=== PATIENT | male | born 1950 | race Caucasian/White ===

== ENCOUNTER 2017-11-29 13:02 | Inpatient (IN) | payer OTHER ==
[2017-11-29] MEDS ORDERED: Sodium Chloride 0.9% 1,000 ML IV ONE (20:53)
[2017-11-29] MEDS ORDERED: Clindamycin 600mg/50mL 600 MG/50 ML BAG IV ONE (21:12)
[2017-11-29 21:30] LABS: % BASOPHILS 0.1 % (0.0-2.0); % EOSINOPHILS 1.7 % (0.0-5.0); % LYMPHOCYTES 24.9 % (20.0-50.0); % MONOCYTES 10.6 % (2.0-10.0); % NEUTROPHILS 62.7 % (40.0-80.0); EOSINOPHILE ABSOLUTE 0.1 Th/cmm (0.1-0.4); HEMATOCRIT 42.6 % (41.0-60); LYMPHOCYTE ABSOLUTE 2.1 Th/cmm (1.5-3.0); MEAN CELL VOLUME 81.2 fl (80-99); MEAN CORPUSCULAR HEMOGLOBIN 26.7 pg (27.0-31.0); MEAN CORPUSCULAR HGB CONC 32.9 pg (28.0-36.0); MEAN PLATELET VOLUME 7.8 fl; MONOCYTE ABSOLUTE 0.9 Th/cmm (0.3-1.0); NEUTROPHILE ABSOLUTE 5.4 Th/cmm (1.8-8.0); PLATELET COUNT 284 Th/cmm (150-400); RED BLOOD COUNT 5.25 Mil/cmm (3.80-5.80); RED CELL DISTRIBUTION WIDTH 16.2 % (11.5-20.0); WHITE BLOOD COUNT 8.5 Th/cmm (4.8-10.8)
[2017-11-29] MEDS ORDERED: Piperacillin Sodium/Tazobact 3.375 gm Vial IV ONE (21:42)
[2017-11-29 21:43] LABS: ALB/GLOB RATIO 1.3 (1.0-1.8); ALBUMIN 3.9 gm/dL (4.2-5.5); ALKALINE PHOSPHATASE 77 U/L (34-104); ANION GAP 10.3 (7.0-16.0); BILIRUBIN,TOTAL 0.5 mg/dL (0.3-1.0); BUN - UREA NITROGEN 17 mg/dL (7-25); CALCIUM SERUM 9.2 mg/dL (8.6-10.3); CARBON DIOXIDE 23.8 mEq/L (21.0-31.0); CHLORIDE 100 mEq/L (98-107); CREATININE - SERUM 0.8 mg/dL (0.7-1.3); GFR AFRICAN-AMERICAN > 60.0 ml/min (>90); GFR NON AFRICAN-AMERICAN > 60.0 ml/min; GLUCOSE 89 mg/dL (70-105); POTASSIUM SERUM 4.1 mEq/L (3.5-5.1); SGOT 12 U/L (13-39); SGPT/ALT 15 U/L (7-52); SODIUM SERUM 130 mEq/L (136-145); TOTAL PROTEIN,SERUM 6.8 gm/dL (6.0-8.3)
[2017-11-29] MEDS ORDERED: Clindamycin 150 mg/mL 4mL Vial ONE (21:58)
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
[2017-11-30 03:26] VITALS: BP 125/76
[2017-11-30] MEDS ORDERED: Magnesium Hydroxide (MOM) 30 mL UDC PO PRN (03:26)
[2017-11-30] MEDS ORDERED: Maalox 30 mL Cup PO PRN (03:26)
[2017-11-30] MEDS ORDERED: Non-Formulary Item 1 EA (Acetaminophen [Pain Reliever] 650 MG) PO PRN (06:49)
[2017-11-30] MEDS: INSULIN HUMAN REGULAR 100 UNITS/ML UNIT SUBQ SCH ×2 (07:23→11:26)
--- NOTE | 2017-11-30 08:49 | Diagnostic Imaging Report ---
CHEST X-RAY: AP view INDICATION: Pneumonia COMPARISON: None FINDINGS: There is retrocardiac density. Chronic interstitial lung changes are noted. No focal consolidation or effusions. Left upper lung zone subsegmental atelectasis versus scarring is noted. There appear to be multiple previous left rib fractures, age-indeterminate. No pneumothorax. Heart size is at the upper limits of normal. IMPRESSION: Multiple age-indeterminate left rib fractures. Please correlate with clinical findings and old exams. These findings may be chronic. If indicated rib series x-rays may also be obtained. No evidence of pneumothorax. Left upper lung zone subsegmental atelectasis versus scarring. No focal consolidation identified. Retrocardiac density suggestive of an at least moderate-sized hiatal hernia. CT would further clarify.
--- NOTE | 2017-11-30 08:57 | History and Physical ---
History of Present Illness - HPI Chief Complaint: psychosis HPI: 67y/o male admitted for change in behavior. Has a previous history of HTN,DM, Right foot ulcer, possible osteomyelitis, PVD, periphereal neuropathy, mild renal insufficiency, partial resection of the right foot. Vital Signs: Last Vital Signs Temp 97.1 F 11/30/17 03:26 Pulse 56 11/30/17 03:26 Resp 18 11/30/17 03:26 BP 125/76 11/30/17 03:26 Pulse Ox 99 11/30/17 03:26 Past Medical History Cardiovascular: Report: HTN Pulmonary: Report: No Pertinent Hx ARTIST COLOR SEPARATION: Report: No Pertinent Hx GI: Report: No Pertinent Hx Psych: Report: Psychosis Musculoskeletal: Report: Other (right foot ulcer) Rheumatologic: Report: No pertinent Hx Infectious Disease: Report: No Pertinent Hx Renal/: Report: No Pertinent Hx Endocrine: Report: Diabetes - Past Surgical History Past Surgical History: Other (partial resection of the right foot) Family Medical History - Family Member Mother History Unknown: Yes Ethnicity: Non- Living Status: Unknown Hx Family Cancer: (Unknown) Hx Family Coronary Artery Disease: (Unknown) Hx Family Congestive Heart Failure: (Unknown) Hx Family Hypertension: (Unknown) Hx Family Stroke: (Unknown) Hx Family Diabetes: (Unknown) Hx Family Seizures: (Unknown) Hx Family Dementia: (Unknown) Hx Family AIDS: (Unknown) Hx Family HIV: No Hx Family COPD: (Unknown) Hx Family Hepatitis: (Unknown) Hx Family Psychiatric Problems: (Unknown) Hx Family Tuberculosis: (Unknown) Social History Smoke: No Alcohol: None Drugs: None Lives: Usp - Medications Home Medications: Home Medication Medication Instructions Recorded Type Acetaminophen [Pain Reliever] 650 mg PO Q4H PRN 11/29/17 History Ascorbic Acid [Vitamin C] 500 mg PO DAILY 11/29/17 History Clonidine HCl [Catapres] 0.1 mg PO Q6H PRN 11/29/17 History Enoxaparin [Lovenox] 30 mg SUBQ DAILY 11/29/17 History Folic Acid [Folate*] 1 mg PO HS 11/29/17 History Hydralazine [Apresoline*] 10 mg PO TID 11/29/17 History Insulin Human Regular [NovoLIN R] 0 units SUBQ ACHS 11/29/17 History Melatonin 3 mg PO HS 11/29/17 History Multivitamin with Minerals 1 tab PO DAILY 11/29/17 History [Multivitamins with Minerals] Propranolol HCl [Inderal*] 10 mg PO BID 11/29/17 History Sertraline [Zoloft] 50 mg PO DAILY 11/29/17 History Thiamine [Vitamin B1] 100 mg PO HS 11/29/17 History Trazodone HCl 50 mg PO HS 11/29/17 History Vits A & D/White Pet/Lanolin [A + 42.5 gm TP DAILY 11/29/17 History D Ointment] - Allergies Allergies/Adverse Reactions: Allergies Allergy/AdvReac Type Severity Reaction Status Date / Time Penicillins Allergy Verified 11/29/17 14:45 Review of Systems - Review of Systems Constitutional: Report: No Significant Eyes: Report: No Significant ENT: Report: No Significant Respiratory: Report: No Significant Cardiovascular: Report: No Significant Gastrointestinal: Report: No Significant Genitourinary: Report: No Significant Musculoskeletal: Report: No Significant Skin: Report: No Significant Neurological: Report: No Significant Physical Exam - Physical Exam HEENT: Report: Ears Nose Throat within normal limits, Pharnyx within normal limits Neck: Report: Within normal limits. Denies: Thyromegaly Cardiovascular Systems: Report: +s1/s2 noted, Regular, Rate and Rhythm Respiratory: Report: Breath Sounds are within normal limits Abdomen: Report: Non-tender to palpation. Denies: Guarding - Assessment Assessment: Current Active Problems Problem Status Onset AGITATION Acute Psychosis Right Foot pain secondary to ulcer HTN PVD DM periphereal neuropathy Mild renal insufficiency partial resection of the Right foot - Plan Plan: admit to [facility] and continue meds per psychiatry Right foot Xray ortho consult
[2017-11-30] MEDS ORDERED: Multivitamin Tab PO SCH (09:00)
[2017-11-30] MEDS: Enoxaparin 30 mg/0.3 mL 0.3mL Syr SUBQ SCH (09:16)
[2017-11-30] MEDS: Multivitamin w/ Minerals Tab PO SCH (09:17)
[2017-11-30] MEDS: Vitamin A/Vitamin D 5 gm Packet TP SCH (09:17)
--- NOTE | 2017-11-30 10:24 | Diagnostic Imaging Report ---
Right foot 3 views Indication: pain Comparison: none Findings: Exam is limited due to positioning. There appears to be previous partial resection involving the distal aspect of the fifth metatarsal. There is also erosions and irregularities along the third DIP joint most pronounced along the third distal phalanx. Moderate degenerative changes are noted greatest in the subtalar joint. No significant focal soft tissue swelling. There may be small soft tissue defects involving the distal aspect of the second and third phalanges. IMPRESSION: There appears to be partial resection involving the distal aspect of the fifth metatarsal. Please correlate with clinical findings Erosive changes along the third DIP joint most pronounced within the third distal phalanx. Findings may be due to previous infectious inflammatory process/possible septic arthritis. Please correct clinically Moderate degenerative changes. Possible small soft tissue defects along the distal aspect of the second and third phalanges. In the setting of trauma, if clinical symptoms persist and there is continued concern for an occult fracture, follow up exams in 5-7 days is suggested.
[2017-11-30] MEDS: INSULIN ASPART SLIDING SCALE 100 UNITS/ML UNIT SUBQ SCH ×2 (16:55→21:00)
[2017-11-30] MEDS ORDERED: Non-Formulary Item 1 EA (Melatonin [Melatonin] 3 MG) PO SCH (21:00)
--- NOTE | 2017-12-01 02:08 | Psychosocial Evaluation ---
DATE OF SERVICE: 11/29/2017 IDENTIFYING DATA: The patient is a 67-year-old male, resident of [facility] in [place]. Information obtained by directly interviewing the patient as well as reviewing the admission papers and they are reliable. JUSTIFICATION OF HOSPITALIZATION: The patient is admitted here on a voluntary basis in view of his acute agitation. CHIEF COMPLAINT: "I do not know, I need to go to the bathroom. They are holding me back in here." HISTORY OF PRESENT ILLNESS: This is the first psychiatric hospitalization to the [facility] for this patient who is getting easily agitated. The patient is not able to provide much of any information. The patient has been fixated on going to the bathroom. The patient at the time of the evaluation has been reported to have been acutely confused and has been creating more of a problem. The patient has been given a dose of the Ativan yesterday to calm him down, but the patient also has been reported to have been given the 5 mg of the dose of the olanzapine, but the patient is still having difficult time. I am not able to get much of information at this time. PHYSICAL OR SEXUAL ABUSE HISTORY: Not reported. The patient is having a difficult time to calm down at this time. PHYSICAL EXAMINATION: Requested and done by Dr. Johansen. MENTAL STATUS EXAMINATION: The patient is a 67-year-old, looking older than his stated age, superficially cooperative. Eye contact is poor. Mood is irritable. Affect is constricted. Insight and judgment at this time are noted very much impaired. Impulse control seems to be poor. Coping skills are noted to be very poor. The patient is very paranoid and fixated going to the restroom. The patient has no insight into his illness. Both short and long-term memory are noted to be impaired. Attention span and concentration are noted to be poor. The patient's behavior is likely danger to self and others at this time. DIAGNOSTIC IMPRESSION: AXIS I: 1A. Psychotic disorder, not otherwise specified. 1B. Dementia and behavioral change, secondary to it. AXIS II: None. AXIS III: As per Dr. Johansen. IMMEDIATE TREATMENT PLAN: The patient is going to be started on 12.5 mg of the Seroquel and the patient is going to be followed up with the supportive therapy. ESTIMATED LENGTH OF STAY: 5-7 days. DISCHARGE CRITERIA: He is no longer a threat to self or others and be able to cope up with the stress. [facility]# [id number]
[2017-12-01] MEDS: INSULIN ASPART SLIDING SCALE 100 UNITS/ML UNIT SUBQ SCH ×4 (06:47→20:56)
--- NOTE | 2017-12-01 08:36 | General Progress Note ---
Subjective - Review of Systems Service Date: 12/01/17 Subjective: Patient is awake,alert, no acute distress VS T97.8 P79 BP 138/76 R20 Objective - Results Result Diagrams: 11/29/17 21:22 11/29/17 21: Recent Labs: Laboratory Last Values WBC 8.5 Th/cmm (4.8-10.8) 11/29/17 21: RBC 5.25 Mil/cmm (3.80-5.80) 11/29/17 21:22 Hgb 14.0 gm/dL (12-16) 11/29/17 21:22 Hct 42.6 % (41.0-60) 11/29/17 21: MCV 81.2 fl (80-99) 11/29/17 21: MCH 26.7 pg (27.0-31.0) L 11/29/17 21: MCHC Differential 32.9 pg (28.0-36.0) 11/29/17 21: RDW 16.2 % (11.5-20.0) 11/29/17 21: Plt Count 284 Th/cmm (150-400) 11/29/17 21:22 MPV 7.8 fl 11/29/17 21:22 Neutrophils % 62.7 % (40.0-80.0) 11/29/17 21: Lymphocytes % 24.9 % (20.0-50.0) 11/29/17 21: Monocytes % 10.6 % (2.0-10.0) H 11/29/17 21: Eosinophils % 1.7 % (0.0-5.0) 11/29/17 21:22 Basophils % 0.1 % (0.0-2.0) 11/29/17 21:22 Sodium 130 mEq/L (136-145) L 11/29/17 21:22 Potassium 4.1 mEq/L (3.5-5.1) 11/29/17 21: Chloride 100 mEq/L (98-107) 11/29/17 21:22 Carbon Dioxide 23.8 mEq/L (21.0-31.0) 11/29/17 21: Anion Gap 10.3 (7.0-16.0) 11/29/17 21:22 BUN 17 mg/dL (7-25) 11/29/17 21:22 Creatinine 0.8 mg/dL (0.7-1.3) 11/29/17 21:22 Est GFR ( Amer) > 60.0 ml/min (>90) 11/29/17 21:22 Est GFR (Non-Af Amer) > 60.0 ml/min 11/29/17 21:22 BUN/Creatinine Ratio 21.3 11/29/17 21:22 Glucose 89 mg/dL (70-105) 11/29/17 21:22 Whole Bld Lactic Acid 0.62 mmol/L (0.60-1.99) 11/29/17 21: Calcium 9.2 mg/dL (8.6-10.3) 11/29/17 21: Magnesium 2.1 mg/dL (1.9-2.7) 11/29/17 21:22 Total Bilirubin 0.5 mg/dL (0.3-1.0) 11/29/17 21:22 AST 12 U/L (13-39) L 11/29/17 21:22 ALT 15 U/L (7-52) 11/29/17 21:22 Alkaline Phosphatase 77 U/L (34-104) 11/29/17 21:22 Total Protein 6.8 gm/dL (6.0-8.3) 11/29/17 21:22 Albumin 3.9 gm/dL (4.2-5.5) L 11/29/17 21:22 Globulin 2.9 gm/dL 11/29/17 21:22 Albumin/Globulin Ratio 1.3 (1.0-1.8) 11/29/17 21:22 TSH 3.23 uIU/ml (0.34-5.60) 11/29/17 21:22 - Physical Exam Vitals and I&O: Vital Signs Temp 97.8 F 12/01/17 05:53 Pulse 79 12/01/17 05:53 Resp 20 12/01/17 05:53 BP 138/76 12/01/17 05:53 Pulse Ox 97 12/01/17 05:53 Intake & Output 11/30/17 12/01/17 12/01/17 18:59 06:59 18:59 Intake Total 240 Balance 240 Weight (lbs) 86.183 kg Intake: Oral 240 Other: # Voids 3 # Bowel Movements 1 Active Medications: Current Medications Acetaminophen (Tylenol) 650 mg PO Q4HR PRN PRN Reason: Mild Pain / Temp above 100 Stop: 01/29/18 03:25 Last Admin: 12/01/17 00:51 Dose: 650 mg Al Hydrox/Mg Hydrox/Simethicone (Maalox) 30 ml PO Q4HR PRN PRN Reason: GI DISTRESS Stop: 01/29/18 03:25 Ascorbic Acid (Vitamin C) 500 mg PO DAILY [facility] Stop: 01/29/18 08:59 Last Admin: 11/30/17 09:17 Dose: 500 mg Divalproex Sodium (Depakote Dr) 125 mg PO Q12HR ALYSE PRN Reason: Protocol Stop: 01/29/18 20:59 Last Admin: 11/30/17 21:00 Dose: Not Given Enoxaparin Sodium (Lovenox) 30 mg SUBQ DAILY [facility] Stop: 01/29/18 08:59 Last Admin: 11/30/17 09:16 Dose: 30 mg Folic Acid (Folate) 1 mg PO HS [facility] Stop: 01/29/18 20:59 Last Admin: 11/30/17 21:00 Dose: 1 mg Hydralazine HCl (Apresoline) 10 mg PO TID [facility] Stop: 01/29/18 08:59 Last Admin: 11/30/17 21:00 Dose: Not Given Insulin Aspart (Novolog Insulin Sliding Scale) 0 units SUBQ ACHS ALYSE PRN Reason: Protocol Stop: 01/29/18 07:29 Last Admin: 12/01/17 06:47 Dose: Not Given Lorazepam (Ativan) 0.5 mg PO Q4HR PRN; Protocol PRN Reason: Agitation Stop: 12/30/17 03:25 Last Admin: 12/01/17 04:30 Dose: 0.5 mg Magnesium Hydroxide (Milk Of Magnesia) 30 ml PO HS PRN PRN Reason: Constipation Propranolol HCl (Inderal) 10 mg PO BID [facility] Stop: 01/29/18 08:59 Last Admin: 11/30/17 17:09 Dose: Not Given Quetiapine Fumarate (Seroquel) 12.5 mg PO HS ALYSE PRN Reason: Protocol Stop: 01/29/18 20:59 Last Admin: 11/30/17 21:00 Dose: Not Given Thiamine HCl (Vitamin B1) 100 mg PO HS [facility] Stop: 01/29/18 20:59 Last Admin: 11/30/17 21:00 Dose: 100 mg Vitamin A (Vitamin A & D) 5 gm TP DAILY [facility] Stop: 01/29/18 08:59 Last Admin: 11/30/17 09:17 Dose: 5 gm Zolpidem Tartrate (Ambien) 5 mg PO HS PRN PRN Reason: Insomnia Stop: 01/29/18 03:25 Last Admin: 12/01/17 00:51 Dose: 5 mg General: Alert, Oriented x3, No acute distress HEENT: Atraumatic, PERRLA, EOMI Neck: Supple Cardiovascular: Regular rate, Normal S1, Normal S2 Lungs: Clear to auscultation Abdomen: Bowel sounds, Soft Extremities: no Clubbing, no Cyanosis, no Edema Assessment/Plan - Problem List Patient Problems: All Active Problems AGITATION (Acute) - Assessment Assessment: Current Active Problems Problem Status Onset AGITATION Acute Psychosis Right Foot pain secondary to ulcer HTN PVD DM periphereal neuropathy Mild renal insufficiency partial resection of the Right foot - Plan Plan: continue home meds Right foot Xray ortho consult wound consult
[2017-12-01] MEDS: Multivitamin w/ Minerals Tab PO SCH ×3 (08:55→09:27)
[2017-12-01] MEDS: Enoxaparin 30 mg/0.3 mL 0.3mL Syr SUBQ SCH ×3 (08:56→09:29)
[2017-12-01] MEDS: Vitamin A/Vitamin D 5 gm Packet TP SCH ×3 (08:57→09:26)
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
--- NOTE | 2017-12-02 04:01 | Progress Notes ---
DATE: 12/01/2017 PSYCHIATRIC PROGRESS NOTE SUBJECTIVE: Staff was spoken to. Patient is interviewed. Mood is irritable. Affect is constricted. Insight and judgment are very much impaired. The patient is noted to be very disruptive and has been trying to get out of the GD chair. The patient has no insight into his illness. The patient is screaming and yelling and he is not making much sense. The patient has been not able to contract for safety. The patient is also maintained on a low dose of the Seroquel, which is at 12.5 mg and is going to be increased to 25 mg tonight and patient is going to be followed up with the supportive therapy. ASSESSMENT: The patient is still grossly psychotic and impulsive and having mood swings. PLAN: To continue the patient with current changes in medication and follow through. JOB# [id number]
[2017-12-02] MEDS: INSULIN ASPART SLIDING SCALE 100 UNITS/ML UNIT SUBQ SCH ×4 (06:43→21:30)
--- NOTE | 2017-12-02 08:22 | General Progress Note ---
Subjective - Review of Systems Service Date: 12/02/17 Subjective: Psychosis. Patient is confused, no acute distress VS T97.8 P79 BP 138/76 R20 Objective - Results Result Diagrams: 11/29/17 21:22 11/29/17 21: Recent Labs: Laboratory Last Values WBC 8.5 Th/cmm (4.8-10.8) 11/29/17 21: RBC 5.25 Mil/cmm (3.80-5.80) 11/29/17 21:22 Hgb 14.0 gm/dL (12-16) 11/29/17 21:22 Hct 42.6 % (41.0-60) 11/29/17 21: MCV 81.2 fl (80-99) 11/29/17 21: MCH 26.7 pg (27.0-31.0) L 11/29/17 21: MCHC Differential 32.9 pg (28.0-36.0) 11/29/17 21: RDW 16.2 % (11.5-20.0) 11/29/17 21: Plt Count 284 Th/cmm (150-400) 11/29/17 21:22 MPV 7.8 fl 11/29/17 21:22 Neutrophils % 62.7 % (40.0-80.0) 11/29/17 21: Lymphocytes % 24.9 % (20.0-50.0) 11/29/17 21: Monocytes % 10.6 % (2.0-10.0) H 11/29/17 21: Eosinophils % 1.7 % (0.0-5.0) 11/29/17 21:22 Basophils % 0.1 % (0.0-2.0) 11/29/17 21:22 Sodium 130 mEq/L (136-145) L 11/29/17 21:22 Potassium 4.1 mEq/L (3.5-5.1) 11/29/17 21: Chloride 100 mEq/L (98-107) 11/29/17 21:22 Carbon Dioxide 23.8 mEq/L (21.0-31.0) 11/29/17 21: Anion Gap 10.3 (7.0-16.0) 11/29/17 21:22 BUN 17 mg/dL (7-25) 11/29/17 21:22 Creatinine 0.8 mg/dL (0.7-1.3) 11/29/17 21:22 Est GFR ( Amer) > 60.0 ml/min (>90) 11/29/17 21:22 Est GFR (Non-Af Amer) > 60.0 ml/min 11/29/17 21:22 BUN/Creatinine Ratio 21.3 11/29/17 21:22 Glucose 89 mg/dL (70-105) 11/29/17 21:22 Whole Bld Lactic Acid 0.62 mmol/L (0.60-1.99) 11/29/17 21: Calcium 9.2 mg/dL (8.6-10.3) 11/29/17 21: Magnesium 2.1 mg/dL (1.9-2.7) 11/29/17 21:22 Total Bilirubin 0.5 mg/dL (0.3-1.0) 11/29/17 21:22 AST 12 U/L (13-39) L 11/29/17 21:22 ALT 15 U/L (7-52) 11/29/17 21:22 Alkaline Phosphatase 77 U/L (34-104) 11/29/17 21:22 Total Protein 6.8 gm/dL (6.0-8.3) 11/29/17 21:22 Albumin 3.9 gm/dL (4.2-5.5) L 11/29/17 21:22 Globulin 2.9 gm/dL 11/29/17 21:22 Albumin/Globulin Ratio 1.3 (1.0-1.8) 11/29/17 21:22 Free T4 1.22 ng/dL (0.82-1.77) 11/29/17 21: TSH 3.23 uIU/ml (0.34-5.60) 11/29/17 21:22 - Physical Exam Vitals and I&O: Vital Signs Temp 97.8 F 12/01/17 15:10 Pulse 85 12/01/17 21:13 Resp 20 12/01/17 15:10 BP 125/76 12/01/17 21:13 Pulse Ox 98 12/01/17 15:10 Intake & Output 12/01/17 12/02/17 12/02/17 18:59 06:59 18:59 Intake Total 600 Balance 600 Intake: Oral 600 Other: # Voids 2 # Bowel Movements 1 Active Medications: Current Medications Acetaminophen (Tylenol) 650 mg PO Q4HR PRN PRN Reason: Mild Pain / Temp above 100 Stop: 01/29/18 03:25 Last Admin: 12/01/17 00:51 Dose: 650 mg Al Hydrox/Mg Hydrox/Simethicone (Maalox) 30 ml PO Q4HR PRN PRN Reason: GI DISTRESS Stop: 01/29/18 03:25 Ascorbic Acid (Vitamin C) 500 mg PO DAILY [facility] Stop: 01/29/18 08:59 Last Admin: 12/01/17 09:30 Dose: 500 mg Divalproex Sodium (Depakote Dr) 250 mg PO Q12HR ALYSE PRN Reason: Protocol Stop: 01/30/18 18:46 Last Admin: 12/01/17 20:55 Dose: 250 mg Enoxaparin Sodium (Lovenox) 30 mg SUBQ DAILY [facility] Stop: 01/29/18 08:59 Last Admin: 12/01/17 09:29 Dose: Not Given Folic Acid (Folate) 1 mg PO HS [facility] Stop: 01/29/18 20:59 Last Admin: 12/01/17 20:55 Dose: 1 mg Hydralazine HCl (Apresoline) 10 mg PO TID [facility] Stop: 01/29/18 08:59 Last Admin: 12/01/17 21:13 Dose: 10 mg Insulin Aspart (Novolog Insulin Sliding Scale) 0 units SUBQ ACHS ALYSE PRN Reason: Protocol Stop: 01/29/18 07:29 Last Admin: 12/02/17 06:43 Dose: Not Given Lorazepam (Ativan) 0.5 mg PO Q4HR PRN; Protocol PRN Reason: Agitation Stop: 12/30/17 03:25 Last Admin: 12/01/17 14:30 Dose: 0.5 mg Magnesium Hydroxide (Milk Of Magnesia) 30 ml PO HS PRN PRN Reason: Constipation Propranolol HCl (Inderal) 10 mg PO BID [facility] Stop: 01/29/18 08:59 Last Admin: 12/01/17 16:46 Dose: 10 mg Quetiapine Fumarate (Seroquel) 25 mg PO HS ALYSE PRN Reason: Protocol Stop: 01/30/18 18:46 Last Admin: 12/01/17 20:56 Dose: 25 mg Thiamine HCl (Vitamin B1) 100 mg PO HS ALYSE Stop: 01/29/18 20:59 Last Admin: 12/01/17 20:55 Dose: 100 mg Vitamin A (Vitamin A & D) 5 gm TP DAILY ALYSE Stop: 01/29/18 08:59 Last Admin: 12/01/17 09:26 Dose: 5 gm Zolpidem Tartrate (Ambien) 5 mg PO HS PRN PRN Reason: Insomnia Stop: 01/29/18 03:25 Last Admin: 12/02/17 02:00 Dose: 5 mg General: Alert, Oriented x3, No acute distress HEENT: Atraumatic, PERRLA, EOMI Neck: Supple Cardiovascular: Regular rate, Normal S1, Normal S2 Lungs: Clear to auscultation Abdomen: Bowel sounds, Soft Extremities: no Clubbing, no Cyanosis, no Edema Assessment/Plan - Problem List Patient Problems: All Active Problems AGITATION (Acute) - Assessment Assessment: Current Active Problems Problem Status Onset AGITATION Acute Psychosis Right Foot pain secondary to ulcer HTN PVD DM periphereal neuropathy Mild renal insufficiency partial resection of the Right foot - Plan Plan: continue home meds Right foot Xray ortho consult wound consult Nutritional Asmnt/Malnutr-PDOC - Dietary Evaluation Malnutrition Findings (Please click <Entered> for more info): Nutritional Asmnt/Malnutrition Start: 12/01/17 17: 27 Text: Status: Complete Freq: Document 12/01/17 17:27 L[facility]ENG (Rec: 12/01/17 17:34 [id number] Nutritional Asmnt/Malnutrition Patient General Information Nutritional Screening Moderate Risk Consult Diagnosis psychosis Pertinent Medical Hx/Surgical Hx HTN, psychosis, DM Subjective Information Consult received for diabetic foot ulcer. Pt seen sitting in kim-chair, confused. Spoke with RN, pt eats everything, no problem of eating. Current Diet Order/ Nutrition Support CCHO 60gm Pertinent Medications vit C, folate, novolog, seroquel, vit Ba, vit A&D Pertinent Labs 11/29 Na 130, glucose 89 Nutritional Hx/Data Height 1.83 m Height (Calculated Centimeters) 182.9 Current Weight (lbs) 86.183 kg Weight (Calculated Kilograms) 86.2 Weight (Calculated Grams) 24438.6 [place] Body Weight 178 Body Mass Index (BMI) 25.7 Weight Status Overweight GI Symptoms GI Symptoms None Last BM 12/01 Difficult in: None Skin Integrity/Comment: right foot plantar diabetic ulcer Estimated Nutritional Goals BEE in Kcals: Using Current wt Calories/Kcals/Kg 25-30 Kcals Calculated 9832-8545 Protein: Using Current wt Protein g/k-1.1 Protein Calculated 86-95 Fluid: ml 2150-2580ml (1ml/klca) Nutritional Problem 1. Problem Problem increased nutrition needs ( protein) Etiology increased metabolic demand for wound healing Signs/Symptoms: diabetic ulcer Malnutrition Alert Protein-Calorie Malnutrition N/A Is there a minimum of two criteria No selected? Query Text:Check all the applicable criteria. A minimum of two criteria are recommended for diagnosis of either severe or non-severe malnutrition. Intervention/Recommendation Comments 1. Continue with current diet as ordered. 2. Monitor PO intake, wt, labs and skin integrity 3. F/U as low risk in 7da ys, 12/08, PO check 12/03 Expected Outcomes/Goals Expected Outcomes/Goals 1. PO intake to meet at least 75% of nutritional needs. 2. Wt stability, skin to remain intact, labs to approach WNL.
[2017-12-02] MEDS: Multivitamin w/ Minerals Tab PO SCH (08:28)
[2017-12-02] MEDS: Enoxaparin 30 mg/0.3 mL 0.3mL Syr SUBQ SCH (08:38)
[2017-12-02] MEDS: Vitamin A/Vitamin D 5 gm Packet TP SCH (08:39)
--- NOTE | 2017-12-02 23:20 | Consultation ---
DATE OF CONSULTATION: 12/01/2017 REQUESTING PHYSICIAN: Pasquale Diego M.D. TYPE OF CONSULTATION: Psychology. HISTORY OF PRESENT ILLNESS: The following is by review of the medical record and by staff, discussion and the patient's response to clinical interview. The patient is a 67-year-old male who was a resident of [facility]. The patient presents initially screaming and yelling as well as using profanity on the unit. The patient is in a Roxy chair. The patient appears to be attempting to physically strike out at staff members as well as other patients on the unit. The patient's behavior is uncontrollable and unpredictable. The patient is consistently using profanity and not responding to de-escalation or redirection. The patient's agitation is excessive and he is verbally aggressive as well. The patient appears to be very confused as to his orientation, i.e., that he is in the hospital. The patient has no insight into his illness. According to record review, the patient has history of traumatic brain injury. The patient is not answering the clinical interview questions and cursing at this mortgage or loan underwriter. The patient was unable to contract for safety and did not answer the question about experiencing suicidal ideation or homicidal ideation, plan or intention. PAST MEDICAL HISTORY: Please see history and physical by Dr. Johansen. PAST PSYCHIATRIC HISTORY: Unknown at this time. CURRENT MEDICATIONS: Please see admission reconciliation. ALLERGIES: Penicillin. SUBSTANCE ABUSE HISTORY: The patient did not answer his questions. This history is unavailable at this time. PSYCHOSOCIAL HISTORY: The patient is a resident of [facility]. The patient has one daughter who is involved in his care and has been able to provide collateral information. The patient did not answer questions about occupational or educational history or lutheran affiliation. The patient is guarded and suspicious at the time of the clinical interview. MENTAL STATUS EXAMINATION: The patient appears to be his stated age. The patient's attitude is uncooperative. Eye contact is poor. Speech is verbally aggressive and yelling and screaming obscenities. Mood is irritable and angry. Affect is mood congruent. Thought process shows to be confused and perseverating on needing to go to the bathroom. The patient demonstrates and is verbalizing paranoid ideation. The patient did not answer questions about experiencing any auditory or visual hallucinations. The patient 's behavior is unpredictable and uncontrollable as well as unredirectable. Impulse control is impaired. Concentration is impaired. The patient was unable to perform the memory evaluation. It appears that the patient's immediate and short term memory are impaired. Long-term memory needs further evaluation. The patient was unable to sustain focus and attention on any of the clinical questions and was emotionally reactive to each encounter. The patient is unable to contract for safety. The patient did not participate in any of the other assessment questions in the mental status examination. Insight is impaired. Judgment is impaired. DIAGNOSTIC IMPRESSION: AXIS I: 1. Psychotic disorder, not otherwise specified. 2. 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 AXIS II: Deferred. AXIS III: Please see history and physical by Dr. Johansen. PLAN: The patient has been seen by Dr. Diego for psychiatric evaluation and for the management of the patient's psychotropic medications. The patient is being started on Seroquel and is already taking Ativan. It appears that Depakote has been started as well. Please see medication reconciliation. We will provide supportive therapy. We will provide de-escalation of the patient's agitation and verbal aggression. We will encourage as well as provide motivational enhancement for the patient to become compliant and stay compliant with all aspects of his care and treatment plan. We will provide limit setting with respect to the patient's striking out behavior physically towards staff members and other patients. Recommendation for emergency medicine has been given to the staff as well as the admitting physician. These will be discussed. We will provide coping strategies for phase of life issues with respect to the patient's high level of stress and poor frustration tolerance when the patient is able to demonstrate capacity to benefit from these types of psychological and psychotherapeutic interventions as well. We will continue to provide behavioral management on the unit to prevent the patient from physically striking out at others and for obvious safety concerns for the patient as well as the other patients and staff on this unit. This mortgage or loan underwriter will reevaluate the medical necessity and benefit as well as capacity to determine if this patient is able to participate in psychotherapeutic interventions as his hospital stay continues. Thank you, Dr. Diego for this consult and the opportunity to participate with you in this patient's care. JOB# [id number] ELVIN
--- NOTE | 2017-12-03 04:20 | Progress Notes ---
DATE: 12/02/2017 SUBJECTIVE: Staff was spoken to. The patient is interviewed. Mood is noted to be irritable. Affect is constricted. Insight and judgment is noted to be very much impaired. The patient is screaming and yelling. The patient is not making much sense. The patient needs to be redirected at this time. ASSESSMENT: The patient is still grossly psychotic and impulsive. PLAN: To continue the patient with the current medications. Continue with the Seroquel and Depakote and I encouraged the patient to verbalize the concerns rather than to act out. The patient is not able to be discharged to a lower level of care in view of his psychosis. JOB# [id number]
--- NOTE | 2017-12-03 08:24 | General Progress Note ---
Subjective - Review of Systems Service Date: 12/03/17 Subjective: Psychosis. Patient is confused, no acute distress VS P80 BP 105/60 Objective - Results Result Diagrams: 11/29/17 21:22 11/29/17 21: Recent Labs: Laboratory Last Values WBC 8.5 Th/cmm (4.8-10.8) 11/29/17 21: RBC 5.25 Mil/cmm (3.80-5.80) 11/29/17 21:22 Hgb 14.0 gm/dL (12-16) 11/29/17 21: Hct 42.6 % (41.0-60) 11/29/17 21: MCV 81.2 fl (80-99) 11/29/17 21: MCH 26.7 pg (27.0-31.0) L 11/29/17 21: MCHC Differential 32.9 pg (28.0-36.0) 11/29/17 21: RDW 16.2 % (11.5-20.0) 11/29/17 21: Plt Count 284 Th/cmm (150-400) 11/29/17 21: MPV 7.8 fl 11/29/17 21: Neutrophils % 62.7 % (40.0-80.0) 11/29/17 21: Lymphocytes % 24.9 % (20.0-50.0) 11/29/17 21: Monocytes % 10.6 % (2.0-10.0) H 11/29/17 21: Eosinophils % 1.7 % (0.0-5.0) 11/29/17 21: Basophils % 0.1 % (0.0-2.0) 11/29/17 21: Sodium 130 mEq/L (136-145) L 11/29/17 21: Potassium 4.1 mEq/L (3.5-5.1) 11/29/17 21: Chloride 100 mEq/L (98-107) 11/29/17 21: Carbon Dioxide 23.8 mEq/L (21.0-31.0) 11/29/17 21: Anion Gap 10.3 (7.0-16.0) 11/29/17 21: BUN 17 mg/dL (7-25) 11/29/17 21:22 Creatinine 0.8 mg/dL (0.7-1.3) 11/29/17 21:22 Est GFR ( Amer) > 60.0 ml/min (>90) 11/29/17 21:22 Est GFR (Non-Af Amer) > 60.0 ml/min 11/29/17 21:22 BUN/Creatinine Ratio 21.3 11/29/17 21:22 Glucose 89 mg/dL (70-105) 11/29/17 21:22 Whole Bld Lactic Acid 0.62 mmol/L (0.60-1.99) 11/29/17 21:22 Calcium 9.2 mg/dL (8.6-10.3) 11/29/17 21: Magnesium 2.1 mg/dL (1.9-2.7) 11/29/17 21:22 Total Bilirubin 0.5 mg/dL (0.3-1.0) 11/29/17 21:22 AST 12 U/L (13-39) L 11/29/17 21:22 ALT 15 U/L (7-52) 11/29/17 21:22 Alkaline Phosphatase 77 U/L (34-104) 11/29/17 21:22 Total Protein 6.8 gm/dL (6.0-8.3) 11/29/17 21:22 Albumin 3.9 gm/dL (4.2-5.5) L 11/29/17 21:22 Globulin 2.9 gm/dL 11/29/17 21:22 Albumin/Globulin Ratio 1.3 (1.0-1.8) 11/29/17 21:22 Free T4 1.22 ng/dL (0.82-1.77) 11/29/17 21:22 TSH 3.23 uIU/ml (0.34-5.60) 11/29/17 21:22 - Physical Exam Vitals and I&O: Vital Signs Temp 97.8 F 12/01/17 15:10 Pulse 80 12/02/17 10:02 Resp 20 12/01/17 15:10 BP 105/60 12/02/17 10:02 Pulse Ox 98 12/01/17 15:10 Intake & Output 12/02/17 12/03/17 12/03/17 18:59 06:59 18:59 Intake Total 600 Balance 600 Intake: Oral 600 Other: # Voids 3 Active Medications: Current Medications Acetaminophen (Tylenol) 650 mg PO Q4HR PRN PRN Reason: Mild Pain / Temp above 100 Stop: 01/29/18 03:25 Last Admin: 12/01/17 00:51 Dose: 650 mg Al Hydrox/Mg Hydrox/Simethicone (Maalox) 30 ml PO Q4HR PRN PRN Reason: GI DISTRESS Stop: 01/29/18 03:25 Ascorbic Acid (Vitamin C) 500 mg PO DAILY [facility] Stop: 01/29/18 08:59 Last Admin: 12/02/17 08:29 Dose: 500 mg Divalproex Sodium (Depakote Dr) 250 mg PO Q12HR [facility] PRN Reason: Protocol Stop: 01/30/18 18:46 Last Admin: 12/02/17 21:29 Dose: 250 mg Enoxaparin Sodium (Lovenox) 30 mg SUBQ DAILY [facility] Stop: 01/29/18 08:59 Last Admin: 12/02/17 08:38 Dose: Not Given Folic Acid (Folate) 1 mg PO HS [facility] Stop: 01/29/18 20:59 Last Admin: 12/02/17 21:29 Dose: 1 mg Hydralazine HCl (Apresoline) 10 mg PO TID [facility] Stop: 01/29/18 08:59 Last Admin: 12/02/17 21:50 Dose: Not Given Insulin Aspart (Novolog Insulin Sliding Scale) 0 units SUBQ ACHS [facility] PRN Reason: Protocol Stop: 01/29/18 07:29 Last Admin: 12/02/17 21:30 Dose: Not Given Lorazepam (Ativan) 0.5 mg PO Q4HR PRN; Protocol PRN Reason: Agitation Stop: 12/30/17 03:25 Last Admin: 12/02/17 15:29 Dose: 0.5 mg Magnesium Hydroxide (Milk Of Magnesia) 30 ml PO HS PRN PRN Reason: Constipation Propranolol HCl (Inderal) 10 mg PO BID [facility] Stop: 01/29/18 08:59 Last Admin: 12/02/17 18:08 Dose: Not Given Quetiapine Fumarate (Seroquel) 25 mg PO HS [facility] PRN Reason: Protocol Stop: 01/30/18 18:46 Last Admin: 12/02/17 21:30 Dose: 25 mg Thiamine HCl (Vitamin B1) 100 mg PO HS [facility] Stop: 01/29/18 20:59 Last Admin: 12/02/17 21:30 Dose: 100 mg Vitamin A (Vitamin A & D) 5 gm TP DAILY [facility] Stop: 01/29/18 08:59 Last Admin: 12/02/17 08:39 Dose: 5 gm Zolpidem Tartrate (Ambien) 5 mg PO HS PRN PRN Reason: Insomnia Stop: 01/29/18 03:25 Last Admin: 12/02/17 02:00 Dose: 5 mg General: Alert, Oriented x3, No acute distress HEENT: Atraumatic, PERRLA, EOMI Neck: Supple Cardiovascular: Regular rate, Normal S1, Normal S2 Lungs: Clear to auscultation Abdomen: Bowel sounds, Soft Extremities: no Clubbing, no Cyanosis, no Edema Assessment/Plan - Problem List Patient Problems: All Active Problems AGITATION (Acute) - Assessment Assessment: Current Active Problems Problem Status Onset AGITATION Acute Psychosis Right Foot pain secondary to ulcer HTN PVD DM periphereal neuropathy Mild renal insufficiency partial resection of the Right foot - Plan Plan: admit to geropsyche and continue meds per psychiatry Right foot Xray ortho consult Nutritional Asmnt/Malnutr-PDOC - Dietary Evaluation Malnutrition Findings (Please click <Entered> for more info): Nutritional Asmnt/Malnutrition Start: 12/01/17 17: 27 Text: Status: Complete Freq: Document 12/01/17 17:27 LCHENG (Rec: 12/01/17 17:34 LCHENG [email or web address]) Nutritional Asmnt/Malnutrition Patient General Information Nutritional Screening Moderate Risk Consult Diagnosis psychosis Pertinent Medical Hx/Surgical Hx HTN, psychosis, DM Subjective Information Consult received for diabetic foot ulcer. Pt seen sitting in kim-chair, confused. Spoke with RN, pt eats everything, no problem of eating. Current Diet Order/ Nutrition Support CCHO 60gm Pertinent Medications vit C, folate, novolog, seroquel, vit Ba, vit A&D Pertinent Labs 11/29 Na 130, glucose 89 Nutritional Hx/Data Height 1.83 m Height (Calculated Centimeters) 182.9 Current Weight (lbs) 86.183 kg Weight (Calculated Kilograms) 86.2 Weight (Calculated Grams) 31139.6 [place] Body Weight 178 Body Mass Index (BMI) 25.7 Weight Status Overweight GI Symptoms GI Symptoms None Last BM 12/01 Difficult in: None Skin Integrity/Comment: right foot plantar diabetic ulcer Estimated Nutritional Goals BEE in Kcals: Using Current wt Calories/Kcals/Kg 25-30 Kcals Calculated 3477-4810 Protein: Using Current wt Protein g/k-1.1 Protein Calculated 86-95 Fluid: ml 2150-2580ml (1ml/klca) Nutritional Problem 1. Problem Problem increased nutrition needs ( protein) Etiology increased metabolic demand for wound healing Signs/Symptoms: diabetic ulcer Malnutrition Alert Protein-Calorie Malnutrition N/A Is there a minimum of two criteria No selected? Query Text:Check all the applicable criteria. A minimum of two criteria are recommended for diagnosis of either severe or non-severe malnutrition. Intervention/Recommendation Comments 1. Continue with current diet as ordered. 2. Monitor PO intake, wt, labs and skin integrity 3. F/U as low risk in 7da ys, 12/08, PO check 12/03 Expected Outcomes/Goals Expected Outcomes/Goals 1. PO intake to meet at least 75% of nutritional needs. 2. Wt stability, skin to remain intact, labs to approach WNL.
[2017-12-03] MEDS: Vitamin A/Vitamin D 5 gm Packet TP SCH (09:11)
[2017-12-03] MEDS: Multivitamin w/ Minerals Tab PO SCH (09:12)
[2017-12-03] MEDS: INSULIN ASPART SLIDING SCALE 100 UNITS/ML UNIT SUBQ SCH ×4 (09:15→20:41)
[2017-12-03] MEDS: Enoxaparin 30 mg/0.3 mL 0.3mL Syr SUBQ SCH (09:16)
--- NOTE | 2017-12-03 22:35 | Progress Notes ---
DATE: 12/03/2017 SUBJECTIVE: Staff was spoken to. The patient is interviewed. Mood is irritable. Affect is constricted. Insight and judgment are impaired. Impulse control is poor. Coping skills are noted to be poor. The patient has been having difficult time to cope with the stress. The patient has been screaming and yelling. The patient has been currently placed on the valproic acid 125 mg twice a day and Seroquel 25 mg at bedtime. The patient has been able to tolerate the medications. No side effects to medications are noted. ASSESSMENT: The patient is still impulsive. PLAN: To continue the patient with the supportive therapy, encouraged the patient to verbalize the concerns rather than to act out. [facility]# [id number]
--- NOTE | 2017-12-04 05:14 | General Progress Note ---
Subjective - Review of Systems Service Date: 12/04/17 Subjective: Psychosis. Patient is confused, still agitated VS T98.2 P102 BP 141/73 R20 Objective - Results Result Diagrams: 11/29/17 21:22 11/29/17 21: Recent Labs: Laboratory Last Values WBC 8.5 Th/cmm (4.8-10.8) 11/29/17 21: RBC 5.25 Mil/cmm (3.80-5.80) 11/29/17 21:22 Hgb 14.0 gm/dL (12-16) 11/29/17 21:22 Hct 42.6 % (41.0-60) 11/29/17 21: MCV 81.2 fl (80-99) 11/29/17 21: MCH 26.7 pg (27.0-31.0) L 11/29/17 21: MCHC Differential 32.9 pg (28.0-36.0) 11/29/17 21: RDW 16.2 % (11.5-20.0) 11/29/17 21:22 Plt Count 284 Th/cmm (150-400) 11/29/17 21:22 MPV 7.8 fl 11/29/17 21:22 Neutrophils % 62.7 % (40.0-80.0) 11/29/17 21: Lymphocytes % 24.9 % (20.0-50.0) 11/29/17 21: Monocytes % 10.6 % (2.0-10.0) H 11/29/17 21: Eosinophils % 1.7 % (0.0-5.0) 11/29/17 21:22 Basophils % 0.1 % (0.0-2.0) 11/29/17 21:22 Sodium 130 mEq/L (136-145) L 11/29/17 21:22 Potassium 4.1 mEq/L (3.5-5.1) 11/29/17 21: Chloride 100 mEq/L (98-107) 11/29/17 21:22 Carbon Dioxide 23.8 mEq/L (21.0-31.0) 11/29/17 21:22 Anion Gap 10.3 (7.0-16.0) 11/29/17 21:22 BUN 17 mg/dL (7-25) 11/29/17 21:22 Creatinine 0.8 mg/dL (0.7-1.3) 11/29/17 21:22 Est GFR ( Amer) > 60.0 ml/min (>90) 11/29/17 21:22 Est GFR (Non-Af Amer) > 60.0 ml/min 11/29/17 21:22 BUN/Creatinine Ratio 21.3 11/29/17 21:22 Glucose 89 mg/dL (70-105) 11/29/17 21:22 Whole Bld Lactic Acid 0.62 mmol/L (0.60-1.99) 11/29/17 21: Calcium 9.2 mg/dL (8.6-10.3) 11/29/17 21: Magnesium 2.1 mg/dL (1.9-2.7) 11/29/17 21:22 Total Bilirubin 0.5 mg/dL (0.3-1.0) 11/29/17 21:22 AST 12 U/L (13-39) L 11/29/17 21:22 ALT 15 U/L (7-52) 11/29/17 21:22 Alkaline Phosphatase 77 U/L (34-104) 11/29/17 21:22 Total Protein 6.8 gm/dL (6.0-8.3) 11/29/17 21:22 Albumin 3.9 gm/dL (4.2-5.5) L 11/29/17 21:22 Globulin 2.9 gm/dL 11/29/17 21:22 Albumin/Globulin Ratio 1.3 (1.0-1.8) 11/29/17 21:22 Free T4 1.22 ng/dL (0.82-1.77) 11/29/17 21:22 TSH 3.23 uIU/ml (0.34-5.60) 11/29/17 21:22 - Physical Exam Vitals and I&O: Vital Signs Temp 98.2 F 12/03/17 20:37 Pulse 102 12/03/17 20:52 Resp 20 12/03/17 20:37 BP 141/74 12/03/17 20:52 Pulse Ox 98 12/03/17 20:37 Intake & Output 12/03/17 12/03/17 12/04/17 06:59 18:59 06:59 Intake Total 960 320 Balance 960 320 Intake: Oral 320 Other 960 Other: # Voids 3 1 # Bowel Movements 0 Active Medications: Current Medications Acetaminophen (Tylenol) 650 mg PO Q4HR PRN PRN Reason: Mild Pain / Temp above 100 Stop: 01/29/18 03:25 Last Admin: 12/01/17 00:51 Dose: 650 mg Al Hydrox/Mg Hydrox/Simethicone (Maalox) 30 ml PO Q4HR PRN PRN Reason: GI DISTRESS Stop: 01/29/18 03:25 Ascorbic Acid (Vitamin C) 500 mg PO DAILY [facility] Stop: 01/29/18 08:59 Last Admin: 12/03/17 09:12 Dose: 500 mg Divalproex Sodium (Depakote Dr) 250 mg PO Q12HR [facility] PRN Reason: Protocol Stop: 01/30/18 18:46 Last Admin: 12/03/17 20:52 Dose: 250 mg Enoxaparin Sodium (Lovenox) 30 mg SUBQ DAILY [facility] Stop: 01/29/18 08:59 Last Admin: 12/03/17 09:16 Dose: 30 mg Folic Acid (Folate) 1 mg PO HS [facility] Stop: 01/29/18 20:59 Last Admin: 12/03/17 20:52 Dose: 1 mg Hydralazine HCl (Apresoline) 10 mg PO TID [facility] Stop: 01/29/18 08:59 Last Admin: 12/03/17 20:52 Dose: 10 mg Insulin Aspart (Novolog Insulin Sliding Scale) 0 units SUBQ ACHS [facility] PRN Reason: Protocol Stop: 01/29/18 07:29 Last Admin: 12/03/17 20:41 Dose: Not Given Lorazepam (Ativan) 0.5 mg PO Q4HR PRN; Protocol PRN Reason: Agitation Stop: 12/30/17 03:25 Last Admin: 12/02/17 15:29 Dose: 0.5 mg Magnesium Hydroxide (Milk Of Magnesia) 30 ml PO HS PRN PRN Reason: Constipation Propranolol HCl (Inderal) 10 mg PO BID [facility] Stop: 01/29/18 08:59 Last Admin: 12/03/17 16:30 Dose: Not Given Quetiapine Fumarate (Seroquel) 25 mg PO HS [facility] PRN Reason: Protocol Stop: 01/30/18 18:46 Last Admin: 12/03/17 20:52 Dose: 25 mg Thiamine HCl (Vitamin B1) 100 mg PO HS [facility] Stop: 01/29/18 20:59 Last Admin: 12/03/17 20:52 Dose: 100 mg Vitamin A (Vitamin A & D) 5 gm TP DAILY [facility] Stop: 01/29/18 08:59 Last Admin: 12/03/17 09:11 Dose: 5 gm Zolpidem Tartrate (Ambien) 5 mg PO HS PRN PRN Reason: Insomnia Stop: 01/29/18 03:25 Last Admin: 12/04/17 03:11 Dose: 5 mg General: Alert, Oriented x3, No acute distress HEENT: Atraumatic, PERRLA, EOMI Neck: Supple Cardiovascular: Regular rate, Normal S1, Normal S2 Lungs: Clear to auscultation Abdomen: Bowel sounds, Soft Extremities: no Clubbing, no Cyanosis, no Edema Assessment/Plan - Problem List Patient Problems: All Active Problems AGITATION (Acute) - Assessment Assessment: Current Active Problems Problem Status Onset AGITATION Acute Psychosis Right Foot pain secondary to ulcer HTN PVD DM periphereal neuropathy Mild renal insufficiency partial resection of the Right foot - Plan Plan: continue meds per psychiatry continue wound care treatment of right foot Nutritional Asmnt/Malnutr-PDOC - Dietary Evaluation Malnutrition Findings (Please click <Entered> for more info): Nutritional Asmnt/Malnutrition Start: 12/01/17 17: 27 Text: Status: Complete Freq: Document 12/01/17 17:27 LCSONDRA (Rec: 12/01/17 17:34 [email or web address]) Nutritional Asmnt/Malnutrition Patient General Information Nutritional Screening Moderate Risk Consult Diagnosis psychosis Pertinent Medical Hx/Surgical Hx HTN, psychosis, DM Subjective Information Consult received for diabetic foot ulcer. Pt seen sitting in kim-chair, confused. Spoke with RN, pt eats everything, no problem of eating. Current Diet Order/ Nutrition Support CCHO 60gm Pertinent Medications vit C, folate, novolog, seroquel, vit Ba, vit A&D Pertinent Labs 11/29 Na 130, glucose 89 Nutritional Hx/Data Height 1.83 m Height (Calculated Centimeters) 182.9 Current Weight (lbs) 86.183 kg Weight (Calculated Kilograms) 86.2 Weight (Calculated Grams) 71060.6 [place] Body Weight 178 Body Mass Index (BMI) 25.7 Weight Status Overweight GI Symptoms GI Symptoms None Last BM 12/01 Difficult in: None Skin Integrity/Comment: right foot plantar diabetic ulcer Estimated Nutritional Goals BEE in Kcals: Using Current wt Calories/Kcals/Kg 25-30 Kcals Calculated 1540-8875 Protein: Using Current wt Protein g/k-1.1 Protein Calculated 86-95 Fluid: ml 2150-2580ml (1ml/klca) Nutritional Problem 1. Problem Problem increased nutrition needs ( protein) Etiology increased metabolic demand for wound healing Signs/Symptoms: diabetic ulcer Malnutrition Alert Protein-Calorie Malnutrition N/A Is there a minimum of two criteria No selected? Query Text:Check all the applicable criteria. A minimum of two criteria are recommended for diagnosis of either severe or non-severe malnutrition. Intervention/Recommendation Comments 1. Continue with current diet as ordered. 2. Monitor PO intake, wt, labs and skin integrity 3. F/U as low risk in 7da ys, 12/08, PO check 12/03 Expected Outcomes/Goals Expected Outcomes/Goals 1. PO intake to meet at least 75% of nutritional needs. 2. Wt stability, skin to remain intact, labs to approach WNL.
[2017-12-04] MEDS: INSULIN ASPART SLIDING SCALE 100 UNITS/ML UNIT SUBQ SCH ×4 (06:48→21:57)
[2017-12-04] MEDS: Enoxaparin 30 mg/0.3 mL 0.3mL Syr SUBQ SCH (08:35)
[2017-12-04] MEDS: Vitamin A/Vitamin D 5 gm Packet TP SCH (08:35)
[2017-12-04] MEDS: Multivitamin w/ Minerals Tab PO SCH (08:36)
--- NOTE | 2017-12-04 16:37 | Progress Notes ---
DATE: 12/04/2017 Staff was spoken to. The patient is interviewed. Mood is noted to be irritable. Affect is constricted. Insight and judgment at this time are noted to be still impaired. Impulse control seems to be limited. Coping skills are noted to be limited. The patient has been screaming and yelling. The patient needs to be closely monitored in front of the nurses' station. The patient has to be given a dose of Klonopin to calm him down. The patient at this time is to contract for safety. The patient is currently on 250 mg twice a day of the Depakote along with the 25 mg of Seroquel at night time. The patient has been able to tolerate. No side effects of medications are noted. JOB# [id number]
--- NOTE | 2017-12-05 05:36 | General Progress Note ---
Subjective - Review of Systems Service Date: 12/05/17 Subjective: Psychosis. Patient is confused, still agitated VS T97.5 P81 BP 144/75 R20 Objective - Results Result Diagrams: 11/29/17 21:22 11/29/17 21: Recent Labs: Laboratory Last Values WBC 8.5 Th/cmm (4.8-10.8) 11/29/17 21: RBC 5.25 Mil/cmm (3.80-5.80) 11/29/17 21:22 Hgb 14.0 gm/dL (12-16) 11/29/17 21:22 Hct 42.6 % (41.0-60) 11/29/17 21: MCV 81.2 fl (80-99) 11/29/17 21: MCH 26.7 pg (27.0-31.0) L 11/29/17 21: MCHC Differential 32.9 pg (28.0-36.0) 11/29/17 21: RDW 16.2 % (11.5-20.0) 11/29/17 21:22 Plt Count 284 Th/cmm (150-400) 11/29/17 21:22 MPV 7.8 fl 11/29/17 21:22 Neutrophils % 62.7 % (40.0-80.0) 11/29/17 21: Lymphocytes % 24.9 % (20.0-50.0) 11/29/17 21: Monocytes % 10.6 % (2.0-10.0) H 11/29/17 21: Eosinophils % 1.7 % (0.0-5.0) 11/29/17 21:22 Basophils % 0.1 % (0.0-2.0) 11/29/17 21:22 Sodium 130 mEq/L (136-145) L 11/29/17 21:22 Potassium 4.1 mEq/L (3.5-5.1) 11/29/17 21: Chloride 100 mEq/L (98-107) 11/29/17 21:22 Carbon Dioxide 23.8 mEq/L (21.0-31.0) 11/29/17 21:22 Anion Gap 10.3 (7.0-16.0) 11/29/17 21:22 BUN 17 mg/dL (7-25) 11/29/17 21:22 Creatinine 0.8 mg/dL (0.7-1.3) 11/29/17 21:22 Est GFR ( Amer) > 60.0 ml/min (>90) 11/29/17 21:22 Est GFR (Non-Af Amer) > 60.0 ml/min 11/29/17 21:22 BUN/Creatinine Ratio 21.3 11/29/17 21:22 Glucose 89 mg/dL (70-105) 11/29/17 21:22 Whole Bld Lactic Acid 0.62 mmol/L (0.60-1.99) 11/29/17 21: Calcium 9.2 mg/dL (8.6-10.3) 11/29/17 21: Magnesium 2.1 mg/dL (1.9-2.7) 11/29/17 21:22 Total Bilirubin 0.5 mg/dL (0.3-1.0) 11/29/17 21:22 AST 12 U/L (13-39) L 11/29/17 21:22 ALT 15 U/L (7-52) 11/29/17 21:22 Alkaline Phosphatase 77 U/L (34-104) 11/29/17 21:22 Total Protein 6.8 gm/dL (6.0-8.3) 11/29/17 21:22 Albumin 3.9 gm/dL (4.2-5.5) L 11/29/17 21:22 Globulin 2.9 gm/dL 11/29/17 21:22 Albumin/Globulin Ratio 1.3 (1.0-1.8) 11/29/17 21:22 Free T4 1.22 ng/dL (0.82-1.77) 11/29/17 21:22 TSH 3.23 uIU/ml (0.34-5.60) 11/29/17 21:22 - Physical Exam Vitals and I&O: Vital Signs Temp 97.5 F 12/04/17 20:37 Pulse 81 12/04/17 21:57 Resp 20 12/04/17 20:37 BP 144/75 12/04/17 21:57 Pulse Ox 92 12/04/17 20:37 Intake & Output 12/04/17 12/04/17 12/05/17 06:59 18:59 06:59 Intake Total 320 1275 240 Balance 320 1275 240 Weight (lbs) 86.183 kg Intake: Oral 320 1275 240 Other: # Voids 1 3 3 # Bowel Movements 1 0 Stool Characteristics Formed Weight Source Bedscale Active Medications: Current Medications Acetaminophen (Tylenol) 650 mg PO Q4HR PRN PRN Reason: Mild Pain / Temp above 100 Stop: 01/29/18 03:25 Last Admin: 12/01/17 00:51 Dose: 650 mg Al Hydrox/Mg Hydrox/Simethicone (Maalox) 30 ml PO Q4HR PRN PRN Reason: GI DISTRESS Stop: 01/29/18 03:25 Ascorbic Acid (Vitamin C) 500 mg PO DAILY [facility] Stop: 01/29/18 08:59 Last Admin: 12/04/17 08:36 Dose: 500 mg Divalproex Sodium (Depakote Dr) 250 mg PO Q12HR [facility] PRN Reason: Protocol Stop: 01/30/18 18:46 Last Admin: 12/04/17 21:54 Dose: 250 mg Enoxaparin Sodium (Lovenox) 30 mg SUBQ DAILY [facility] [place] Stop: 01/29/18 08:59 Last Admin: 12/04/17 08:35 Dose: 30 mg Folic Acid (Folate) 1 mg PO HS [facility] Stop: 01/29/18 20:59 Last Admin: 12/04/17 21:54 Dose: 1 mg Hydralazine HCl (Apresoline) 10 mg PO TID [facility] Stop: 01/29/18 08:59 Last Admin: 12/04/17 21:57 Dose: 10 mg Insulin Aspart (Novolog Insulin Sliding Scale) 0 units SUBQ ACHS [facility] PRN Reason: Protocol Stop: 01/29/18 07:29 Last Admin: 12/04/17 21:57 Dose: 2 units Lorazepam (Ativan) 0.5 mg PO Q4HR PRN; Protocol PRN Reason: Agitation Stop: 12/30/17 03:25 Last Admin: 12/04/17 19:43 Dose: 0.5 mg Magnesium Hydroxide (Milk Of Magnesia) 30 ml PO HS PRN PRN Reason: Constipation Propranolol HCl (Inderal) 10 mg PO BID [facility] [place] Stop: 01/29/18 08:59 Last Admin: 12/04/17 16:37 Dose: 10 mg Quetiapine Fumarate (Seroquel) 25 mg PO HS [facility] PRN Reason: Protocol Stop: 01/30/18 18:46 Last Admin: 12/04/17 21:58 Dose: 25 mg Thiamine HCl (Vitamin B1) 100 mg PO HS [facility] Stop: 01/29/18 20:59 Last Admin: 12/04/17 21:58 Dose: 100 mg Vitamin A (Vitamin A & D) 5 gm TP DAILY [facility] Stop: 01/29/18 08:59 Last Admin: 12/04/17 08:35 Dose: 5 gm Zolpidem Tartrate (Ambien) 5 mg PO HS PRN PRN Reason: Insomnia Stop: 01/29/18 03:25 Last Admin: 12/04/17 03:11 Dose: 5 mg General: Alert, Oriented x3, No acute distress HEENT: Atraumatic, PERRLA, EOMI Neck: Supple Cardiovascular: Regular rate, Normal S1, Normal S2 Lungs: Clear to auscultation Abdomen: Bowel sounds, Soft Extremities: no Clubbing, no Cyanosis, no Edema Assessment/Plan - Problem List Patient Problems: All Active Problems AGITATION (Acute) - Assessment Assessment: Current Active Problems Problem Status Onset AGITATION Acute Psychosis Right Foot pain secondary to ulcer HTN PVD DM periphereal neuropathy Mild renal insufficiency partial resection of the Right foot - Plan Plan: continue meds per psychiatry continue wound care treatment of right foot Nutritional Asmnt/Malnutr-PDOC - Dietary Evaluation Malnutrition Findings (Please click <Entered> for more info): Nutritional Asmnt/Malnutrition Start: 12/01/17 17: 27 Text: Status: Complete Freq: Document 12/01/17 17:27 GLENNY (Rec: 12/01/17 17:34 GLENNY [email or web address]) Nutritional Asmnt/Malnutrition Patient General Information Nutritional Screening Moderate Risk Consult Diagnosis psychosis Pertinent Medical Hx/Surgical Hx HTN, psychosis, DM Subjective Information Consult received for diabetic foot ulcer. Pt seen sitting in kim-chair, confused. Spoke with RN, pt eats everything, no problem of eating. Current Diet Order/ Nutrition Support CCHO 60gm Pertinent Medications vit C, folate, novolog, seroquel, vit Ba, vit A&D Pertinent Labs 11/29 Na 130, glucose 89 Nutritional Hx/Data Height 1.83 m Height (Calculated Centimeters) 182.9 Current Weight (lbs) 86.183 kg Weight (Calculated Kilograms) 86.2 Weight (Calculated Grams) 83715.6 [place] Body Weight 178 Body Mass Index (BMI) 25.7 Weight Status Overweight GI Symptoms GI Symptoms None Last BM 12/01 Difficult in: None Skin Integrity/Comment: right foot plantar diabetic ulcer Estimated Nutritional Goals BEE in Kcals: Using Current wt Calories/Kcals/Kg 25-30 Kcals Calculated 2882-3642 Protein: Using Current wt Protein g/k-1.1 Protein Calculated 86-95 Fluid: ml 2150-2580ml (1ml/klca) Nutritional Problem 1. Problem Problem increased nutrition needs ( protein) Etiology increased metabolic demand for wound healing Signs/Symptoms: diabetic ulcer Malnutrition Alert Protein-Calorie Malnutrition N/A Is there a minimum of two criteria No selected? Query Text:Check all the applicable criteria. A minimum of two criteria are recommended for diagnosis of either severe or non-severe malnutrition. Intervention/Recommendation Comments 1. Continue with current diet as ordered. 2. Monitor PO intake, wt, labs and skin integrity 3. F/U as low risk in 7da ys, 12/08, PO check 12/03 Expected Outcomes/Goals Expected Outcomes/Goals 1. PO intake to meet at least 75% of nutritional needs. 2. Wt stability, skin to remain intact, labs to approach WNL.
[2017-12-05] MEDS: INSULIN ASPART SLIDING SCALE 100 UNITS/ML UNIT SUBQ SCH ×4 (06:32→21:05)
[2017-12-05] MEDS: Multivitamin w/ Minerals Tab PO SCH (09:08)
[2017-12-05] MEDS: Vitamin A/Vitamin D 5 gm Packet TP SCH (09:10)
[2017-12-05] MEDS: Enoxaparin 30 mg/0.3 mL 0.3mL Syr SUBQ SCH (09:50)
--- NOTE | 2017-12-05 17:09 | Progress Notes ---
DATE: 12/05/2017 PSYCHIATRIC PROGRESS NOTE SUBJECTIVE: Staff was spoken to. Patient is interviewed. Mood is noted to be less irritable. Affect is constricted. The patient has been having the aggressive behavior at times, but the impulsivity so far seems to be coming down. No side effects to the medications are noted. ASSESSMENT: The patient's psychosis is resolving. PLAN: To continue the patient with the supportive therapy and followup. [facility]# [id number]
[2017-12-06] MEDS: INSULIN ASPART SLIDING SCALE 100 UNITS/ML UNIT SUBQ SCH ×4 (06:33→21:15)
--- NOTE | 2017-12-06 08:17 | General Progress Note ---
Subjective - Review of Systems Service Date: 12/06/17 Subjective: Psychosis. Patient is confused, still agitated VS T97.5 P78 BP 134/81 R20 Objective - Results Result Diagrams: 11/29/17 21:22 11/29/17 21: Recent Labs: Laboratory Last Values WBC 8.5 Th/cmm (4.8-10.8) 11/29/17 21: RBC 5.25 Mil/cmm (3.80-5.80) 11/29/17 21:22 Hgb 14.0 gm/dL (12-16) 11/29/17 21:22 Hct 42.6 % (41.0-60) 11/29/17 21: MCV 81.2 fl (80-99) 11/29/17 21: MCH 26.7 pg (27.0-31.0) L 11/29/17 21: MCHC Differential 32.9 pg (28.0-36.0) 11/29/17 21: RDW 16.2 % (11.5-20.0) 11/29/17 21:22 Plt Count 284 Th/cmm (150-400) 11/29/17 21:22 MPV 7.8 fl 11/29/17 21:22 Neutrophils % 62.7 % (40.0-80.0) 11/29/17 21: Lymphocytes % 24.9 % (20.0-50.0) 11/29/17 21: Monocytes % 10.6 % (2.0-10.0) H 11/29/17 21: Eosinophils % 1.7 % (0.0-5.0) 11/29/17 21:22 Basophils % 0.1 % (0.0-2.0) 11/29/17 21:22 Sodium 130 mEq/L (136-145) L 11/29/17 21:22 Potassium 4.1 mEq/L (3.5-5.1) 11/29/17 21: Chloride 100 mEq/L (98-107) 11/29/17 21:22 Carbon Dioxide 23.8 mEq/L (21.0-31.0) 11/29/17 21:22 Anion Gap 10.3 (7.0-16.0) 11/29/17 21:22 BUN 17 mg/dL (7-25) 11/29/17 21:22 Creatinine 0.8 mg/dL (0.7-1.3) 11/29/17 21:22 Est GFR ( Amer) > 60.0 ml/min (>90) 11/29/17 21:22 Est GFR (Non-Af Amer) > 60.0 ml/min 11/29/17 21:22 BUN/Creatinine Ratio 21.3 11/29/17 21:22 Glucose 89 mg/dL (70-105) 11/29/17 21:22 Whole Bld Lactic Acid 0.62 mmol/L (0.60-1.99) 11/29/17 21: Calcium 9.2 mg/dL (8.6-10.3) 11/29/17 21: Magnesium 2.1 mg/dL (1.9-2.7) 11/29/17 21:22 Total Bilirubin 0.5 mg/dL (0.3-1.0) 11/29/17 21:22 AST 12 U/L (13-39) L 11/29/17 21:22 ALT 15 U/L (7-52) 11/29/17 21:22 Alkaline Phosphatase 77 U/L (34-104) 11/29/17 21:22 Total Protein 6.8 gm/dL (6.0-8.3) 11/29/17 21:22 Albumin 3.9 gm/dL (4.2-5.5) L 11/29/17 21:22 Globulin 2.9 gm/dL 11/29/17 21:22 Albumin/Globulin Ratio 1.3 (1.0-1.8) 11/29/17 21:22 Free T4 1.22 ng/dL (0.82-1.77) 11/29/17 21:22 TSH 3.23 uIU/ml (0.34-5.60) 11/29/17 21:22 - Physical Exam Vitals and I&O: Vital Signs Temp 97.5 F 12/06/17 06:13 Pulse 78 12/06/17 06:13 Resp 20 12/06/17 06:13 BP 134/81 12/06/17 06:13 Pulse Ox 94 12/06/17 06:13 Intake & Output 12/05/17 12/06/17 12/06/17 18:59 06:59 18:59 Intake Total 480 Balance 480 Intake: Oral 480 Other: # Voids 1 # Bowel Movements 1 Stool Characteristics Formed Active Medications: Current Medications Acetaminophen (Tylenol) 650 mg PO Q4HR PRN PRN Reason: Mild Pain / Temp above 100 Stop: 01/29/18 03:25 Last Admin: 12/01/17 00:51 Dose: 650 mg Al Hydrox/Mg Hydrox/Simethicone (Maalox) 30 ml PO Q4HR PRN PRN Reason: GI DISTRESS Stop: 01/29/18 03:25 Ascorbic Acid (Vitamin C) [address] [facility] Stop: 01/29/18 08:59 Last Admin: 12/05/17 09:06 Dose: 500 mg Divalproex Sodium (Depakote Dr) 250 mg PO Q12HR [facility]YSE PRN Reason: Protocol Stop: 01/30/18 18:46 Last Admin: 12/05/17 21:04 Dose: 250 mg Enoxaparin Sodium (Lovenox) [address] [facility] Stop: 01/29/18 08:59 Last Admin: 12/05/17 09:50 Dose: 30 mg Folic Acid (Folate) [address] [facility] Stop: 01/29/18 20:59 Last Admin: 12/05/17 21:05 Dose: 1 mg Hydralazine HCl (Apresoline) [address] [facility] Stop: 01/29/18 08:59 Last Admin: 12/05/17 21:05 Dose: 10 mg Insulin Aspart (Novolog Insulin Sliding Scale) 0 units SUBQ ACHS ALYSE PRN Reason: Protocol Stop: 01/29/18 07:29 Last Admin: 12/06/17 06:33 Dose: Not Given Lorazepam (Ativan) 0.5 mg PO Q4HR PRN; Protocol PRN Reason: Agitation Stop: 12/30/17 03:25 Last Admin: 12/06/17 04:07 Dose: 0.5 mg Magnesium Hydroxide (Milk Of Magnesia) 30 ml PO HS PRN PRN Reason: Constipation Propranolol HCl (Inderal) [address] [facility] Stop: 01/29/18 08:59 Last Admin: 12/05/17 16:53 Dose: 10 mg Quetiapine Fumarate (Seroquel) 25 mg PO HS [facility] PRN Reason: Protocol Stop: 01/30/18 18:46 Last Admin: 12/05/17 21:05 Dose: 25 mg Thiamine HCl (Vitamin B1) 100 mg PO HS [facility] Stop: 01/29/18 20:59 Last Admin: 12/05/17 21:05 Dose: 100 mg Vitamin A (Vitamin A & D) 5 gm TP DAILY [facility] Stop: 01/29/18 08:59 Last Admin: 12/05/17 09:10 Dose: 5 gm Zolpidem Tartrate (Ambien) 5 mg PO HS PRN PRN Reason: Insomnia Stop: 01/29/18 03:25 Last Admin: 12/05/17 21:06 Dose: 5 mg General: Alert, Oriented x3, No acute distress HEENT: Atraumatic, PERRLA, EOMI Neck: Supple Cardiovascular: Regular rate, Normal S1, Normal S2 Lungs: Clear to auscultation Abdomen: Bowel sounds, Soft Extremities: no Clubbing, no Cyanosis, no Edema Assessment/Plan - Problem List Patient Problems: All Active Problems AGITATION (Acute) - Assessment Assessment: Current Active Problems Problem Status Onset AGITATION Acute Psychosis Right Foot pain secondary to ulcer HTN PVD DM periphereal neuropathy Mild renal insufficiency partial resection of the Right foot - Plan Plan: continue meds per psychiatry continue wound care treatment of right foot Nutritional Asmnt/Malnutr-PDOC - Dietary Evaluation Malnutrition Findings (Please click <Entered> for more info): Nutritional Asmnt/Malnutrition Start: 12/01/17 17: 27 Text: Status: Complete Freq: Document 12/01/17 17:27 TRU (Rec: 12/01/17 17:34 [email or web address] Nutritional Asmnt/Malnutrition Patient General Information Nutritional Screening Moderate Risk Consult Diagnosis psychosis Pertinent Medical Hx/Surgical Hx HTN, psychosis, DM Subjective Information Consult received for diabetic foot ulcer. Pt seen sitting in kim-chair, confused. Spoke with RN, pt eats everything, no problem of eating. Current Diet Order/ Nutrition Support CCHO 60gm Pertinent Medications vit C, folate, novolog, seroquel, vit Ba, vit A&D Pertinent Labs 11/29 Na 130, glucose 89 Nutritional Hx/Data Height 1.83 m Height (Calculated Centimeters) 182.9 Current Weight (lbs) 86.183 kg Weight (Calculated Kilograms) 86.2 Weight (Calculated Grams) 13668.6 [place] Body Weight 178 Body Mass Index (BMI) 25.7 Weight Status Overweight GI Symptoms GI Symptoms None Last BM 12/01 Difficult in: None Skin Integrity/Comment: right foot plantar diabetic ulcer Estimated Nutritional Goals BEE in Kcals: Using Current wt Calories/Kcals/Kg 25-30 Kcals Calculated 0405-9706 Protein: Using Current wt Protein g/k-1.1 Protein Calculated 86-95 Fluid: ml 2150-2580ml (1ml/klca) Nutritional Problem 1. Problem Problem increased nutrition needs ( protein) Etiology increased metabolic demand for wound healing Signs/Symptoms: diabetic ulcer Malnutrition Alert Protein-Calorie Malnutrition N/A Is there a minimum of two criteria No selected? Query Text:Check all the applicable criteria. A minimum of two criteria are recommended for diagnosis of either severe or non-severe malnutrition. Intervention/Recommendation Comments 1. Continue with current diet as ordered. 2. Monitor PO intake, wt, labs and skin integrity 3. F/U as low risk in 7da ys, 12/08, PO check 12/03 Expected Outcomes/Goals Expected Outcomes/Goals 1. PO intake to meet at least 75% of nutritional needs. 2. Wt stability, skin to remain intact, labs to approach WNL.
[2017-12-06] MEDS: Enoxaparin 30 mg/0.3 mL 0.3mL Syr SUBQ SCH (10:03)
[2017-12-06] MEDS: Multivitamin w/ Minerals Tab PO SCH (10:04)
[2017-12-06] MEDS: Vitamin A/Vitamin D 5 gm Packet TP SCH (10:05)
[2017-12-06] MEDS: NYSTATIN 100000 UNITS/GM POWD TP SCH (16:25)
--- NOTE | 2017-12-07 01:39 | Progress Notes ---
DATE: 12/06/2017 SUBJECTIVE: Staff was spoken to. The patient is interviewed. Mood is irritable. Affect is constricted. The patient has been doing fairly well a little bit, but later gets easily agitated and tries to work his way out of the Roxy chair. The patient has no insight into his illness. Coping skills are noted to be extremely poor. The patient is currently on Seroquel and Depakote. The Seroquel is increased to 25 mg twice a day. ASSESSMENT: The patient is still psychotic and demented. PLAN: To continue the patient with the supportive therapy and followup. JOB# [id number]
[2017-12-07] MEDS: INSULIN ASPART SLIDING SCALE 100 UNITS/ML UNIT SUBQ SCH ×3 (06:44→21:20)
--- NOTE | 2017-12-07 08:34 | General Progress Note ---
Subjective - Review of Systems Service Date: 12/07/17 Subjective: Psychosis. Patient is confused, still agitated VS T96.0 P75 BP 104/45 R18 Objective - Results Result Diagrams: 11/29/17 21:22 11/29/17 21: Recent Labs: Laboratory Last Values WBC 8.5 Th/cmm (4.8-10.8) 11/29/17 21: RBC 5.25 Mil/cmm (3.80-5.80) 11/29/17 21:22 Hgb 14.0 gm/dL (12-16) 11/29/17 21:22 Hct 42.6 % (41.0-60) 11/29/17 21: MCV 81.2 fl (80-99) 11/29/17 21: MCH 26.7 pg (27.0-31.0) L 11/29/17 21: MCHC Differential 32.9 pg (28.0-36.0) 11/29/17 21: RDW 16.2 % (11.5-20.0) 11/29/17 21: Plt Count 284 Th/cmm (150-400) 11/29/17 21:22 MPV 7.8 fl 11/29/17 21: Neutrophils % 62.7 % (40.0-80.0) 11/29/17 21: Lymphocytes % 24.9 % (20.0-50.0) 11/29/17 21: Monocytes % 10.6 % (2.0-10.0) H 11/29/17 21: Eosinophils % 1.7 % (0.0-5.0) 11/29/17 21: Basophils % 0.1 % (0.0-2.0) 11/29/17 21:22 Sodium 130 mEq/L (136-145) L 11/29/17 21:22 Potassium 4.1 mEq/L (3.5-5.1) 11/29/17 21: Chloride 100 mEq/L (98-107) 11/29/17 21:22 Carbon Dioxide 23.8 mEq/L (21.0-31.0) 11/29/17 21: Anion Gap 10.3 (7.0-16.0) 11/29/17 21:22 BUN 17 mg/dL (7-25) 11/29/17 21:22 Creatinine 0.8 mg/dL (0.7-1.3) 11/29/17 21:22 Est GFR ( Amer) > 60.0 ml/min (>90) 11/29/17 21:22 Est GFR (Non-Af Amer) > 60.0 ml/min 11/29/17 21:22 BUN/Creatinine Ratio 21.3 11/29/17 21:22 Glucose 89 mg/dL (70-105) 11/29/17 21:22 Whole Bld Lactic Acid 0.62 mmol/L (0.60-1.99) 11/29/17 21: Calcium 9.2 mg/dL (8.6-10.3) 11/29/17 21: Magnesium 2.1 mg/dL (1.9-2.7) 11/29/17 21:22 Total Bilirubin 0.5 mg/dL (0.3-1.0) 11/29/17 21:22 AST 12 U/L (13-39) L 11/29/17 21:22 ALT 15 U/L (7-52) 11/29/17 21:22 Alkaline Phosphatase 77 U/L (34-104) 11/29/17 21:22 Total Protein 6.8 gm/dL (6.0-8.3) 11/29/17 21:22 Albumin 3.9 gm/dL (4.2-5.5) L 11/29/17 21:22 Globulin 2.9 gm/dL 11/29/17 21:22 Albumin/Globulin Ratio 1.3 (1.0-1.8) 11/29/17 21:22 Free T4 1.22 ng/dL (0.82-1.77) 11/29/17 21:22 TSH 3.23 uIU/ml (0.34-5.60) 11/29/17 21:22 - Physical Exam Vitals and I&O: Vital Signs Temp 96.0 F 12/07/17 05:41 Pulse 75 12/07/17 05:41 Resp 18 12/07/17 05:41 BP 104/45 12/07/17 05:41 Pulse Ox 100 12/07/17 05:41 Intake & Output 12/06/17 12/07/17 12/07/17 18:59 06:59 18:59 Intake Total 240 Balance 240 Intake: Oral 240 Other: # Voids 1 Stool Characteristics Formed Formed Active Medications: Current Medications Acetaminophen (Tylenol) 650 mg PO Q4HR PRN PRN Reason: Mild Pain / Temp above 100 Stop: 01/29/18 03:25 Last Admin: 12/01/17 00:51 Dose: 650 mg Al Hydrox/Mg Hydrox/Simethicone (Maalox) 30 ml PO Q4HR PRN PRN Reason: GI DISTRESS Stop: 01/29/18 03:25 Ascorbic Acid (Vitamin C) 500 mg PO DAILY [facility] Stop: 01/29/18 08:59 Last Admin: 12/06/17 10:02 Dose: 500 mg Divalproex Sodium (Depakote Dr) 250 mg PO Q12HR [facility]YSE PRN Reason: Protocol Stop: 01/30/18 18:46 Last Admin: 12/06/17 21:41 Dose: 250 mg Enoxaparin Sodium (Lovenox) 30 mg SUBQ DAILY [facility] Stop: 01/29/18 08:59 Last Admin: 12/06/17 10:03 Dose: 30 mg Folic Acid (Folate) 1 mg PO HS [facility] Stop: 01/29/18 20:59 Last Admin: 12/06/17 21:41 Dose: 1 mg Hydralazine HCl (Apresoline) 10 mg PO TID [facility] Stop: 01/29/18 08:59 Last Admin: 12/06/17 21:46 Dose: 10 mg Insulin Aspart (Novolog Insulin Sliding Scale) 0 units SUBQ ACHS [facility] PRN Reason: Protocol Stop: 01/29/18 07:29 Last Admin: 12/07/17 06:44 Dose: Not Given Lorazepam (Ativan) 0.5 mg PO Q4HR PRN; Protocol PRN Reason: Agitation Stop: 12/30/17 03:25 Last Admin: 12/06/17 16:33 Dose: 0.5 mg Magnesium Hydroxide (Milk Of Magnesia) 30 ml PO HS PRN PRN Reason: Constipation Nystatin (Nystop) 0 units TP BID [facility] Stop: 02/04/18 16:59 Last Admin: 12/06/17 16:25 Dose: 100,000 units Propranolol HCl (Inderal) 10 mg PO BID [facility] Stop: 01/29/18 08:59 Last Admin: 12/06/17 16:24 Dose: 10 mg Quetiapine Fumarate (Seroquel) 25 mg PO BID [facility] PRN Reason: Protocol Stop: 02/04/18 16:59 Last Admin: 12/06/17 16:24 Dose: 25 mg Thiamine HCl (Vitamin B1) 100 mg PO HS [facility] Stop: 01/29/18 20:59 Last Admin: 12/06/17 21:41 Dose: 100 mg Vitamin A (Vitamin A & D) 5 gm TP DAILY [facility] Stop: 01/29/18 08:59 Last Admin: 12/06/17 10:05 Dose: 5 gm Zolpidem Tartrate (Ambien) 5 mg PO HS PRN PRN Reason: Insomnia Stop: 01/29/18 03:25 Last Admin: 12/05/17 21:06 Dose: 5 mg General: Alert, Oriented x3, No acute distress HEENT: Atraumatic, PERRLA, EOMI Neck: Supple Cardiovascular: Regular rate, Normal S1, Normal S2 Lungs: Clear to auscultation Abdomen: Bowel sounds, Soft Extremities: no Clubbing, no Cyanosis, no Edema Assessment/Plan - Problem List Patient Problems: All Active Problems AGITATION (Acute) - Assessment Assessment: Current Active Problems Problem Status Onset AGITATION Acute Psychosis Right Foot pain secondary to ulcer HTN PVD DM periphereal neuropathy Mild renal insufficiency partial resection of the Right foot - Plan Plan: continue meds per psychiatry continue wound care treatment of right foot Nutritional Asmnt/Malnutr-PDOC - Dietary Evaluation Malnutrition Findings (Please click <Entered> for more info): Nutritional Asmnt/Malnutrition Start: 12/01/17 17: 27 Text: Status: Complete Freq: Document 12/01/17 17:27 LCHENG (Rec: 12/01/17 17:34 [email or web address]) Nutritional Asmnt/Malnutrition Patient General Information Nutritional Screening Moderate Risk Consult Diagnosis psychosis Pertinent Medical Hx/Surgical Hx HTN, psychosis, DM Subjective Information Consult received for diabetic foot ulcer. Pt seen sitting in kim-chair, confused. Spoke with RN, pt eats everything, no problem of eating. Current Diet Order/ Nutrition Support CCHO 60gm Pertinent Medications vit C, folate, novolog, seroquel, vit Ba, vit A&D Pertinent Labs 11/29 Na 130, glucose 89 Nutritional Hx/Data Height 1.83 m Height (Calculated Centimeters) 182.9 Current Weight (lbs) 86.183 kg Weight (Calculated Kilograms) 86.2 Weight (Calculated Grams) 03475.6 [place] Body Weight 178 Body Mass Index (BMI) 25.7 Weight Status Overweight GI Symptoms GI Symptoms None Last BM 12/01 Difficult in: None Skin Integrity/Comment: right foot plantar diabetic ulcer Estimated Nutritional Goals BEE in Kcals: Using Current wt Calories/Kcals/Kg 25-30 Kcals Calculated 4429-2923 Protein: Using Current wt Protein g/k-1.1 Protein Calculated 86-95 Fluid: ml 2150-2580ml (1ml/klca) Nutritional Problem 1. Problem Problem increased nutrition needs ( protein) Etiology increased metabolic demand for wound healing Signs/Symptoms: diabetic ulcer Malnutrition Alert Protein-Calorie Malnutrition N/A Is there a minimum of two criteria No selected? Query Text:Check all the applicable criteria. A minimum of two criteria are recommended for diagnosis of either severe or non-severe malnutrition. Intervention/Recommendation Comments 1. Continue with current diet as ordered. 2. Monitor PO intake, wt, labs and skin integrity 3. F/U as low risk in 7da ys, 12/08, PO check 12/03 Expected Outcomes/Goals Expected Outcomes/Goals 1. PO intake to meet at least 75% of nutritional needs. 2. Wt stability, skin to remain intact, labs to approach WNL.
[2017-12-07] MEDS: Enoxaparin 30 mg/0.3 mL 0.3mL Syr SUBQ SCH (09:05)
[2017-12-07] MEDS: Vitamin A/Vitamin D 5 gm Packet TP SCH (09:06)
[2017-12-07] MEDS: Multivitamin w/ Minerals Tab PO SCH (09:06)
[2017-12-07] MEDS: NYSTATIN 100000 UNITS/GM POWD TP SCH (09:07)
--- NOTE | 2017-12-08 03:17 | Progress Notes ---
DATE: 12/07/2017 PSYCHIATRIC PROGRESS NOTE SUBJECTIVE: Staff was spoken to. Patient is interviewed. Mood is noted to be less irritable today. Insight and judgment are to be improving. The patient has been having periods of agitation, but for the most part, he seems to have been coming down. No side effects to the medications are noted. The patient is currently on Depakote 250 mg twice a day and Seroquel is 25 mg twice a day. The patient has been able to tolerate the medications. ASSESSMENT: The patient is less irritable. PLAN: To continue the patient with the supportive therapy. Encouraged the patient to verbalize the concerns. The patient is going to be closely monitored. Once stabilized, the patient is going to be continued with the current medications. Encouraged to verbalize the concerns rather than to act out. JOB# [id number]
[2017-12-08] MEDS: INSULIN ASPART SLIDING SCALE 100 UNITS/ML UNIT SUBQ SCH ×4 (06:38→20:51)
[2017-12-08] MEDS: Multivitamin w/ Minerals Tab PO SCH (08:08)
[2017-12-08] MEDS: Enoxaparin 30 mg/0.3 mL 0.3mL Syr SUBQ SCH (08:08)
[2017-12-08] MEDS: NYSTATIN 100000 UNITS/GM POWD TP SCH ×2 (08:09→16:33)
[2017-12-08] MEDS: Vitamin A/Vitamin D 5 gm Packet TP SCH (08:13)
--- NOTE | 2017-12-08 08:18 | General Progress Note ---
Subjective - Review of Systems Service Date: 12/08/17 Subjective: Psychosis. Patient is confused, still agitated VS T97.4 P95 BP 135/73 R19 Objective - Results Result Diagrams: 11/29/17 21:22 11/29/17 21: Recent Labs: Laboratory Last Values WBC 8.5 Th/cmm (4.8-10.8) 11/29/17 21: RBC 5.25 Mil/cmm (3.80-5.80) 11/29/17 21:22 Hgb 14.0 gm/dL (12-16) 11/29/17 21:22 Hct 42.6 % (41.0-60) 11/29/17 21: MCV 81.2 fl (80-99) 11/29/17 21: MCH 26.7 pg (27.0-31.0) L 11/29/17 21: MCHC Differential 32.9 pg (28.0-36.0) 11/29/17 21: RDW 16.2 % (11.5-20.0) 11/29/17 21: Plt Count 284 Th/cmm (150-400) 11/29/17 21:22 MPV 7.8 fl 11/29/17 21:22 Neutrophils % 62.7 % (40.0-80.0) 11/29/17 21: Lymphocytes % 24.9 % (20.0-50.0) 11/29/17 21: Monocytes % 10.6 % (2.0-10.0) H 11/29/17 21: Eosinophils % 1.7 % (0.0-5.0) 11/29/17 21:22 Basophils % 0.1 % (0.0-2.0) 11/29/17 21:22 Sodium 130 mEq/L (136-145) L 11/29/17 21:22 Potassium 4.1 mEq/L (3.5-5.1) 11/29/17 21: Chloride 100 mEq/L (98-107) 11/29/17 21:22 Carbon Dioxide 23.8 mEq/L (21.0-31.0) 11/29/17 21:22 Anion Gap 10.3 (7.0-16.0) 11/29/17 21:22 BUN 17 mg/dL (7-25) 11/29/17 21:22 Creatinine 0.8 mg/dL (0.7-1.3) 11/29/17 21:22 Est GFR ( Amer) > 60.0 ml/min (>90) 11/29/17 21:22 Est GFR (Non-Af Amer) > 60.0 ml/min 11/29/17 21:22 BUN/Creatinine Ratio 21.3 11/29/17 21:22 Glucose 89 mg/dL (70-105) 11/29/17 21:22 Whole Bld Lactic Acid 0.62 mmol/L (0.60-1.99) 11/29/17 21: Calcium 9.2 mg/dL (8.6-10.3) 11/29/17 21: Magnesium 2.1 mg/dL (1.9-2.7) 11/29/17 21:22 Total Bilirubin 0.5 mg/dL (0.3-1.0) 11/29/17 21:22 AST 12 U/L (13-39) L 11/29/17 21:22 ALT 15 U/L (7-52) 11/29/17 21:22 Alkaline Phosphatase 77 U/L (34-104) 11/29/17 21:22 Total Protein 6.8 gm/dL (6.0-8.3) 11/29/17 21:22 Albumin 3.9 gm/dL (4.2-5.5) L 11/29/17 21:22 Globulin 2.9 gm/dL 11/29/17 21:22 Albumin/Globulin Ratio 1.3 (1.0-1.8) 11/29/17 21:22 Free T4 1.22 ng/dL (0.82-1.77) 11/29/17 21: TSH 3.23 uIU/ml (0.34-5.60) 11/29/17 21:22 - Physical Exam Vitals and I&O: Vital Signs Temp 97.4 F 12/08/17 05:51 Pulse 85 12/08/17 08:08 Resp 19 12/08/17 05:51 BP 135/73 12/08/17 08:08 Pulse Ox 96 12/08/17 05:51 Intake & Output 12/07/17 12/08/17 12/08/17 18:59 06:59 18:59 Intake Total 200 Balance 200 Intake: Oral 200 Other: # Voids 2 # Bowel Movements 0 Stool Characteristics Formed Formed Active Medications: Current Medications Acetaminophen (Tylenol) 650 mg PO Q4HR PRN PRN Reason: Mild Pain / Temp above 100 Stop: 01/29/18 03:25 Last Admin: 12/01/17 00:51 Dose: 650 mg Al Hydrox/Mg Hydrox/Simethicone (Maalox) 30 ml PO Q4HR PRN PRN Reason: GI DISTRESS Stop: 01/29/18 03:25 Ascorbic Acid (Vitamin C) 500 mg PO DAILY [facility] Stop: 01/29/18 08:59 Last Admin: 12/08/17 08:08 Dose: 500 mg Divalproex Sodium (Depakote Dr) 250 mg PO Q12HR [facility] PRN Reason: Protocol Stop: 01/30/18 18:46 Last Admin: 12/08/17 08:08 Dose: 250 mg Enoxaparin Sodium (Lovenox) 30 mg SUBQ DAILY [facility] Stop: 01/29/18 08:59 Last Admin: 12/08/17 08:08 Dose: 30 mg Folic Acid (Folate) 1 mg PO HS [facility] Stop: 01/29/18 20:59 Last Admin: 12/07/17 21:19 Dose: 1 mg Hydralazine HCl (Apresoline) 10 mg PO TID [facility] Stop: 01/29/18 08:59 Last Admin: 12/08/17 08:07 Dose: 10 mg Insulin Aspart (Novolog Insulin Sliding Scale) 0 units SUBQ ACHS [facility] PRN Reason: Protocol Stop: 01/29/18 07:29 Last Admin: 12/08/17 06:38 Dose: Not Given Lorazepam (Ativan) 0.5 mg PO Q4HR PRN; Protocol PRN Reason: Agitation Stop: 12/30/17 03:25 Last Admin: 12/08/17 08:07 Dose: 0.5 mg Magnesium Hydroxide (Milk Of Magnesia) 30 ml PO HS PRN PRN Reason: Constipation Nystatin (Nystop) 0 units TP BID [facility] Stop: 02/04/18 16:59 Last Admin: 12/08/17 08:09 Dose: 1 units Propranolol HCl (Inderal) 10 mg PO BID [facility] Stop: 01/29/18 08:59 Last Admin: 12/08/17 08:08 Dose: 10 mg Quetiapine Fumarate (Seroquel) 25 mg PO BID [facility] PRN Reason: Protocol Stop: 02/04/18 16:59 Last Admin: 12/08/17 08:07 Dose: 25 mg Thiamine HCl (Vitamin B1) 100 mg PO HS [facility] Stop: 01/29/18 20:59 Last Admin: 12/07/17 21:19 Dose: 100 mg Vitamin A (Vitamin A & D) 5 gm TP DAILY [facility] Stop: 01/29/18 08:59 Last Admin: 12/08/17 08:13 Dose: 5 gm Zolpidem Tartrate (Ambien) 5 mg PO HS PRN PRN Reason: Insomnia Stop: 01/29/18 03:25 Last Admin: 12/07/17 21:19 Dose: 5 mg General: Alert, Oriented x3, No acute distress HEENT: Atraumatic, PERRLA, EOMI Neck: Supple Cardiovascular: Regular rate, Normal S1, Normal S2 Lungs: Clear to auscultation Abdomen: Bowel sounds, Soft Extremities: no Clubbing, no Cyanosis, no Edema Assessment/Plan - Problem List Patient Problems: All Active Problems AGITATION (Acute) - Assessment Assessment: Current Active Problems Problem Status Onset AGITATION Acute Psychosis Right Foot pain secondary to ulcer HTN PVD DM periphereal neuropathy Mild renal insufficiency partial resection of the Right foot - Plan Plan: continue meds per psychiatry continue wound care treatment of right foot Nutritional Asmnt/Malnutr-PDOC - Dietary Evaluation Malnutrition Findings (Please click <Entered> for more info): Nutritional Asmnt/Malnutrition Start: 12/01/17 17: 27 Text: Status: Complete Freq: Document 12/01/17 17:27 LCHENG (Rec: 12/01/17 17:34 [email or web address]) Nutritional Asmnt/Malnutrition Patient General Information Nutritional Screening Moderate Risk Consult Diagnosis psychosis Pertinent Medical Hx/Surgical Hx HTN, psychosis, DM Subjective Information Consult received for diabetic foot ulcer. Pt seen sitting in kim-chair, confused. Spoke with RN, pt eats everything, no problem of eating. Current Diet Order/ Nutrition Support CCHO 60gm Pertinent Medications vit C, folate, novolog, seroquel, vit Ba, vit A&D Pertinent Labs 11/29 Na 130, glucose 89 Nutritional Hx/Data Height 1.83 m Height (Calculated Centimeters) 182.9 Current Weight (lbs) 86.183 kg Weight (Calculated Kilograms) 86.2 Weight (Calculated Grams) 36983.6 [place] Body Weight 178 Body Mass Index (BMI) 25.7 Weight Status Overweight GI Symptoms GI Symptoms None Last BM 12/01 Difficult in: None Skin Integrity/Comment: right foot plantar diabetic ulcer Estimated Nutritional Goals BEE in Kcals: Using Current wt Calories/Kcals/Kg 25-30 Kcals Calculated 9770-2867 Protein: Using Current wt Protein g/k-1.1 Protein Calculated 86-95 Fluid: ml 2150-2580ml (1ml/klca) Nutritional Problem 1. Problem Problem increased nutrition needs ( protein) Etiology increased metabolic demand for wound healing Signs/Symptoms: diabetic ulcer Malnutrition Alert Protein-Calorie Malnutrition N/A Is there a minimum of two criteria No selected? Query Text:Check all the applicable criteria. A minimum of two criteria are recommended for diagnosis of either severe or non-severe malnutrition. Intervention/Recommendation Comments 1. Continue with current diet as ordered. 2. Monitor PO intake, wt, labs and skin integrity 3. F/U as low risk in 7da ys, 12/08, PO check 12/03 Expected Outcomes/Goals Expected Outcomes/Goals 1. PO intake to meet at least 75% of nutritional needs. 2. Wt stability, skin to remain intact, labs to approach WNL.
[2017-12-08 10:29] LABS: % EOSINOPHILS 1.2 % (0.0-5.0); % LYMPHOCYTES 19.4 % (20.0-50.0); % MONOCYTES 12.1 % (2.0-10.0); % NEUTROPHILS 67.3 % (40.0-80.0); EOSINOPHILE ABSOLUTE 0.1 Th/cmm (0.1-0.4); HEMATOCRIT 39.9 % (41.0-60); HEMOGLOBIN 13.4 gm/dL (12-16); LYMPHOCYTE ABSOLUTE 1.5 Th/cmm (1.5-3.0); MEAN CELL VOLUME 81.9 fl (80-99); MEAN CORPUSCULAR HEMOGLOBIN 27.5 pg (27.0-31.0); MEAN CORPUSCULAR HGB CONC 33.5 pg (28.0-36.0); MEAN PLATELET VOLUME 8.2 fl; MONOCYTE ABSOLUTE 0.9 Th/cmm (0.3-1.0); NEUTROPHILE ABSOLUTE 5.2 Th/cmm (1.8-8.0); PLATELET COUNT 266 Th/cmm (150-400); RED BLOOD COUNT 4.87 Mil/cmm (3.80-5.80); WHITE BLOOD COUNT 7.7 Th/cmm (4.8-10.8)
[2017-12-08 10:39] LABS: ANION GAP 9.8 (7.0-16.0); BUN - UREA NITROGEN 16 mg/dL (7-25); CALCIUM SERUM 9.3 mg/dL (8.6-10.3); CARBON DIOXIDE 27.2 mEq/L (21.0-31.0); CHLORIDE 100 mEq/L (98-107); CREATININE - SERUM 0.7 mg/dL (0.7-1.3); GFR AFRICAN-AMERICAN > 60.0 ml/min (>90); GFR NON AFRICAN-AMERICAN > 60.0 ml/min; GLUCOSE 90 mg/dL (70-105); SODIUM SERUM 133 mEq/L (136-145)
[2017-12-08] MEDS ORDERED: Haloperidol Lactate 5 mg/mL 1mL Vial IM STA (18:27)
[2017-12-08] MEDS ORDERED: Haloperidol Lactate 5 mg/mL 1mL Vial ONE (18:33)
--- NOTE | 2017-12-08 21:49 | Progress Notes ---
DATE: 12/08/2017 SUBJECTIVE: Staff was spoken to. The patient is interviewed. Mood is noted to be irritable. Affect is constricted. Coping skills are noted to be poor. The patient's has been spoken to in detail. The patient's is very much concerned with the patient's foot problems and she wants to get him into [facility]. The patient is stating that there is no one at home to take care of him and she needs some help. Coping skills are noted to be poor at this time. The patient is currently on the Depakote and Seroquel, has been able to tolerate the medications. ASSESSMENT: The patient is still impulsive. PLAN: To continue the patient with the supportive therapy, encouraged the patient to verbalize the concerns rather than to act out. JOB# [id number]
[2017-12-09] MEDS: INSULIN ASPART SLIDING SCALE 100 UNITS/ML UNIT SUBQ SCH ×4 (06:30→21:29)
--- NOTE | 2017-12-09 08:05 | General Progress Note ---
Subjective - Review of Systems Service Date: 12/09/17 Subjective: Psychosis. Patient is confused, still agitated VS T97.7 P73 BP 132/66 R19 Objective - Results Result Diagrams: 12/08/17 10:10 12/08/17 10:10 Recent Labs: Laboratory Last Values WBC 7.7 Th/cmm (4.8-10.8) 12/08/17 10:10 RBC 4.87 Mil/cmm (3.80-5.80) 12/08/17 10:10 Hgb 13.4 gm/dL (12-16) 12/08/17 10:10 Hct 39.9 % (41.0-60) L 12/08/17 10:10 MCV 81.9 fl (80-99) 12/08/17 10:10 MCH 27.5 pg (27.0-31.0) 12/08/17 10:10 MCHC Differential 33.5 pg (28.0-36.0) 12/08/17 10:10 RDW 16.0 % (11.5-20.0) 12/08/17 10:10 Plt Count 266 Th/cmm (150-400) 12/08/17 10:10 MPV 8.2 fl 12/08/17 10:10 Neutrophils % 67.3 % (40.0-80.0) 12/08/17 10:10 Lymphocytes % 19.4 % (20.0-50.0) L 12/08/17 10:10 Monocytes % 12.1 % (2.0-10.0) H 12/08/17 10:10 Eosinophils % 1.2 % (0.0-5.0) 12/08/17 10:10 Basophils % 0.0 % (0.0-2.0) 12/08/17 10:10 Sodium 133 mEq/L (136-145) L 12/08/17 10:10 Potassium 4.0 mEq/L (3.5-5.1) 12/08/17 10:10 Chloride 100 mEq/L (98-107) 12/08/17 10:10 Carbon Dioxide 27.2 mEq/L (21.0-31.0) 12/08/17 10:10 Anion Gap 9.8 (7.0-16.0) 12/08/17 10:10 BUN 16 mg/dL (7-25) 12/08/17 10:10 Creatinine 0.7 mg/dL (0.7-1.3) 12/08/17 10:10 Est GFR ( Amer) > 60.0 ml/min (>90) 12/08/17 10:10 Est GFR (Non-Af Amer) > 60.0 ml/min 12/08/17 10:10 BUN/Creatinine Ratio 22.9 12/08/17 10:10 Glucose 90 mg/dL (70-105) 12/08/17 10:10 Whole Bld Lactic Acid 0.62 mmol/L (0.60-1.99) 11/29/17 21:22 Calcium 9.3 mg/dL (8.6-10.3) 12/08/17 10:10 Magnesium 2.1 mg/dL (1.9-2.7) 11/29/17 21:22 Total Bilirubin 0.5 mg/dL (0.3-1.0) 11/29/17 21:22 AST 12 U/L (13-39) L 11/29/17 21:22 ALT 15 U/L (7-52) 11/29/17 21:22 Alkaline Phosphatase 77 U/L (34-104) 11/29/17 21:22 Total Protein 6.8 gm/dL (6.0-8.3) 11/29/17 21:22 Albumin 3.9 gm/dL (4.2-5.5) L 11/29/17 21:22 Globulin 2.9 gm/dL 11/29/17 21:22 Albumin/Globulin Ratio 1.3 (1.0-1.8) 11/29/17 21:22 Free T4 1.22 ng/dL (0.82-1.77) 11/29/17 21:22 TSH 3.23 uIU/ml (0.34-5.60) 11/29/17 21:22 - Physical Exam Vitals and I&O: Vital Signs Temp 97.8 F 12/09/17 06:03 Pulse 99 12/09/17 06:03 Resp 20 12/09/17 06:03 BP 141/80 12/09/17 06:03 Pulse Ox 95 12/08/17 20:43 Intake & Output 12/08/17 12/09/17 12/09/17 18:59 06:59 18:59 Intake Total 900 480 Balance 900 480 Intake: Oral 900 480 Other: # Voids 2 1 # Bowel Movements 1 Stool Characteristics Soft Soft Active Medications: Current Medications Acetaminophen (Tylenol) 650 mg PO Q4HR PRN PRN Reason: Mild Pain / Temp above 100 Stop: 01/29/18 03:25 Last Admin: 12/01/17 00:51 Dose: 650 mg Al Hydrox/Mg Hydrox/Simethicone (Maalox) 30 ml PO Q4HR PRN PRN Reason: GI DISTRESS Stop: 01/29/18 03:25 Ascorbic Acid (Vitamin C) 500 mg PO DAILY [facility] Stop: 01/29/18 08:59 Last Admin: 12/08/17 08:08 Dose: 500 mg Divalproex Sodium (Depakote Dr) 250 mg PO Q12HR [facility] PRN Reason: Protocol Stop: 01/30/18 18:46 Last Admin: 12/08/17 20:52 Dose: 250 mg Enoxaparin Sodium (Lovenox) 30 mg SUBQ DAILY [facility] Stop: 01/29/18 08:59 Last Admin: 12/08/17 08:08 Dose: 30 mg Folic Acid (Folate) 1 mg PO HS [facility] Stop: 01/29/18 20:59 Last Admin: 12/08/17 20:52 Dose: 1 mg Hydralazine HCl (Apresoline) 10 mg PO TID [facility] Stop: 01/29/18 08:59 Last Admin: 12/08/17 20:55 Dose: Not Given Insulin Aspart (Novolog Insulin Sliding Scale) 0 units SUBQ ACHS [facility] PRN Reason: Protocol Stop: 01/29/18 07:29 Last Admin: 12/09/17 06:30 Dose: Not Given Lorazepam (Ativan) 0.5 mg PO Q4HR PRN; Protocol PRN Reason: Agitation Stop: 12/30/17 03:25 Last Admin: 12/09/17 04:38 Dose: 0.5 mg Magnesium Hydroxide (Milk Of Magnesia) 30 ml PO HS PRN PRN Reason: Constipation Nystatin (Nystop) 0 units TP BID [facility] Stop: 02/04/18 16:59 Last Admin: 12/08/17 16:33 Dose: 1 units Propranolol HCl (Inderal) 10 mg PO BID [facility] Stop: 01/29/18 08:59 Last Admin: 12/08/17 16:51 Dose: 10 mg Quetiapine Fumarate (Seroquel) 25 mg PO BID [facility] PRN Reason: Protocol Stop: 02/04/18 16:59 Last Admin: 12/08/17 16:50 Dose: 25 mg Thiamine HCl (Vitamin B1) 100 mg PO HS [facility] Stop: 01/29/18 20:59 Last Admin: 12/08/17 20:52 Dose: 100 mg Vitamin A (Vitamin A & D) 5 gm TP DAILY [facility] Stop: 01/29/18 08:59 Last Admin: 12/08/17 08:13 Dose: 5 gm Zolpidem Tartrate (Ambien) 5 mg PO HS PRN PRN Reason: Insomnia Stop: 01/29/18 03:25 Last Admin: 12/08/17 20:52 Dose: 5 mg General: Alert, Oriented x3, No acute distress HEENT: Atraumatic, PERRLA, EOMI Neck: Supple Cardiovascular: Regular rate, Normal S1, Normal S2 Lungs: Clear to auscultation Abdomen: Bowel sounds, Soft Extremities: no Clubbing, no Cyanosis, no Edema Assessment/Plan - Problem List Patient Problems: All Active Problems AGITATION (Acute) - Assessment Assessment: Current Active Problems Problem Status Onset AGITATION Acute Psychosis Right Foot pain secondary to ulcer HTN PVD DM periphereal neuropathy Mild renal insufficiency partial resection of the Right foot - Plan Plan: continue meds per psychiatry continue wound care treatment of right foot Nutritional Asmnt/Malnutr-PDOC - Dietary Evaluation Malnutrition Findings (Please click <Entered> for more info): Nutritional Asmnt/Malnutrition Start: 12/01/17 17: 27 Text: Status: Complete Freq: Document 12/01/17 17:27 LCHENG (Rec: 12/01/17 17:34 [email or web address]) Nutritional Asmnt/Malnutrition Patient General Information Nutritional Screening Moderate Risk Consult Diagnosis psychosis Pertinent Medical Hx/Surgical Hx HTN, psychosis, DM Subjective Information Consult received for diabetic foot ulcer. Pt seen sitting in kim-chair, confused. Spoke with RN, pt eats everything, no problem of eating. Current Diet Order/ Nutrition Support CCHO 60gm Pertinent Medications vit C, folate, novolog, seroquel, vit Ba, vit A&D Pertinent Labs 11/29 Na 130, glucose 89 Nutritional Hx/Data Height 1.83 m Height (Calculated Centimeters) 182.9 Current Weight (lbs) 86.183 kg Weight (Calculated Kilograms) 86.2 Weight (Calculated Grams) 26447.6 [place] Body Weight 178 Body Mass Index (BMI) 25.7 Weight Status Overweight GI Symptoms GI Symptoms None Last BM 12/01 Difficult in: None Skin Integrity/Comment: right foot plantar diabetic ulcer Estimated Nutritional Goals BEE in Kcals: Using Current wt Calories/Kcals/Kg 25-30 Kcals Calculated 0926-1748 Protein: Using Current wt Protein g/k-1.1 Protein Calculated 86-95 Fluid: ml 2150-2580ml (1ml/klca) Nutritional Problem 1. Problem Problem increased nutrition needs ( protein) Etiology increased metabolic demand for wound healing Signs/Symptoms: diabetic ulcer Malnutrition Alert Protein-Calorie Malnutrition N/A Is there a minimum of two criteria No selected? Query Text:Check all the applicable criteria. A minimum of two criteria are recommended for diagnosis of either severe or non-severe malnutrition. Intervention/Recommendation Comments 1. Continue with current diet as ordered. 2. Monitor PO intake, wt, labs and skin integrity 3. F/U as low risk in 7da ys, 12/08, PO check 12/03 Expected Outcomes/Goals Expected Outcomes/Goals 1. PO intake to meet at least 75% of nutritional needs. 2. Wt stability, skin to remain intact, labs to approach WNL.
[2017-12-09] MEDS: Multivitamin w/ Minerals Tab PO SCH (09:54)
[2017-12-09] MEDS: Vitamin A/Vitamin D 5 gm Packet TP SCH (09:54)
[2017-12-09] MEDS: Enoxaparin 30 mg/0.3 mL 0.3mL Syr SUBQ SCH (09:57)
[2017-12-09] MEDS: NYSTATIN 100000 UNITS/GM POWD TP SCH ×2 (09:57→16:57)
--- NOTE | 2017-12-10 03:43 | Progress Notes ---
DATE: 12/09/2017 SUBJECTIVE: Staff was spoken to. The patient is interviewed. Mood is irritable. Affect is constricted. The patient is very aggressive this evening and has been pushing the tray out of the GD chair. Insight and judgment at this time are very much impaired. Impulse control seems to be poor. The patient is currently on the Seroquel, which is going to be changed to 25 mg 3 times a day. The patient is going to be continued on the Depakote, which has been given 250 mg twice a day. ASSESSMENT: The patient is still impulsive and is not able to be returned to a lower level of care yet. JOB# [id number]
[2017-12-10] MEDS: INSULIN ASPART SLIDING SCALE 100 UNITS/ML UNIT SUBQ SCH ×4 (06:35→20:39)
--- NOTE | 2017-12-10 07:55 | General Progress Note ---
Subjective - Review of Systems Service Date: 12/10/17 Subjective: Psychosis. Patient is confused, still agitated VS T97.7 P73 BP 132/66 R19 Objective - Results Result Diagrams: 12/08/17 10:10 12/08/17 10:10 Recent Labs: Laboratory Last Values WBC 7.7 Th/cmm (4.8-10.8) 12/08/17 10:10 RBC 4.87 Mil/cmm (3.80-5.80) 12/08/17 10:10 Hgb 13.4 gm/dL (12-16) 12/08/17 10:10 Hct 39.9 % (41.0-60) L 12/08/17 10:10 MCV 81.9 fl (80-99) 12/08/17 10:10 MCH 27.5 pg (27.0-31.0) 12/08/17 10:10 MCHC Differential 33.5 pg (28.0-36.0) 12/08/17 10:10 RDW 16.0 % (11.5-20.0) 12/08/17 10:10 Plt Count 266 Th/cmm (150-400) 12/08/17 10:10 MPV 8.2 fl 12/08/17 10:10 Neutrophils % 67.3 % (40.0-80.0) 12/08/17 10:10 Lymphocytes % 19.4 % (20.0-50.0) L 12/08/17 10:10 Monocytes % 12.1 % (2.0-10.0) H 12/08/17 10:10 Eosinophils % 1.2 % (0.0-5.0) 12/08/17 10:10 Basophils % 0.0 % (0.0-2.0) 12/08/17 10:10 Sodium 133 mEq/L (136-145) L 12/08/17 10:10 Potassium 4.0 mEq/L (3.5-5.1) 12/08/17 10:10 Chloride 100 mEq/L (98-107) 12/08/17 10:10 Carbon Dioxide 27.2 mEq/L (21.0-31.0) 12/08/17 10:10 Anion Gap 9.8 (7.0-16.0) 12/08/17 10:10 BUN 16 mg/dL (7-25) 12/08/17 10:10 Creatinine 0.7 mg/dL (0.7-1.3) 12/08/17 10:10 Est GFR ( Amer) > 60.0 ml/min (>90) 12/08/17 10:10 Est GFR (Non-Af Amer) > 60.0 ml/min 12/08/17 10:10 BUN/Creatinine Ratio 22.9 12/08/17 10:10 Glucose 90 mg/dL (70-105) 12/08/17 10:10 Whole Bld Lactic Acid 0.62 mmol/L (0.60-1.99) 11/29/17 21:22 Calcium 9.3 mg/dL (8.6-10.3) 12/08/17 10:10 Magnesium 2.1 mg/dL (1.9-2.7) 11/29/17 21:22 Total Bilirubin 0.5 mg/dL (0.3-1.0) 11/29/17 21:22 AST 12 U/L (13-39) L 11/29/17 21:22 ALT 15 U/L (7-52) 11/29/17 21:22 Alkaline Phosphatase 77 U/L (34-104) 11/29/17 21:22 Total Protein 6.8 gm/dL (6.0-8.3) 11/29/17 21:22 Albumin 3.9 gm/dL (4.2-5.5) L 11/29/17 21:22 Globulin 2.9 gm/dL 11/29/17 21:22 Albumin/Globulin Ratio 1.3 (1.0-1.8) 11/29/17 21:22 Free T4 1.22 ng/dL (0.82-1.77) 11/29/17 21:22 TSH 3.23 uIU/ml (0.34-5.60) 11/29/17 21:22 - Physical Exam Vitals and I&O: Vital Signs Temp 98.0 F 12/10/17 05:53 Pulse 98 12/10/17 05:53 Resp 20 12/10/17 05:53 BP 145/96 12/10/17 05:53 Pulse Ox 98 12/10/17 05:53 Intake & Output 12/09/17 12/10/17 12/10/17 18:59 06:59 18:59 Intake Total 1000 740 Balance 1000 740 Intake: Oral 1000 740 Other: # Voids 3 2 # Bowel Movements 1 Stool Characteristics Soft Soft Active Medications: Current Medications Acetaminophen (Tylenol) 650 mg PO Q4HR PRN PRN Reason: Mild Pain / Temp above 100 Stop: 01/29/18 03:25 Last Admin: 12/01/17 00:51 Dose: 650 mg Al Hydrox/Mg Hydrox/Simethicone (Maalox) 30 ml PO Q4HR PRN PRN Reason: GI DISTRESS Stop: 01/29/18 03:25 Ascorbic Acid (Vitamin C) 500 mg PO DAILY [facility] Stop: 01/29/18 08:59 Last Admin: 12/09/17 09:55 Dose: 500 mg Divalproex Sodium (Depakote Dr) 250 mg PO Q12HR [facility] PRN Reason: Protocol Stop: 01/30/18 18:46 Last Admin: 12/09/17 21:09 Dose: 250 mg Enoxaparin Sodium (Lovenox) 30 mg SUBQ DAILY [facility] Stop: 01/29/18 08:59 Last Admin: 12/09/17 09:57 Dose: 30 mg Folic Acid (Folate) 1 mg PO HS [facility] Stop: 01/29/18 20:59 Last Admin: 12/09/17 21:09 Dose: 1 mg Hydralazine HCl (Apresoline) 10 mg PO TID [facility] Stop: 01/29/18 08:59 Last Admin: 12/09/17 21:28 Dose: 10 mg Insulin Aspart (Novolog Insulin Sliding Scale) 0 units SUBQ ACHS [facility] PRN Reason: Protocol Stop: 01/29/18 07:29 Last Admin: 12/10/17 06:35 Dose: Not Given Lorazepam (Ativan) 0.5 mg PO Q4HR PRN; Protocol PRN Reason: Agitation Stop: 12/30/17 03:25 Last Admin: 12/09/17 09:54 Dose: 0.5 mg Magnesium Hydroxide (Milk Of Magnesia) 30 ml PO HS PRN PRN Reason: Constipation Nystatin (Nystop) 0 units TP BID [facility] Stop: 02/04/18 16:59 Last Admin: 12/09/17 16:57 Dose: 1 units Propranolol HCl (Inderal) 10 mg PO BID [facility] Stop: 01/29/18 08:59 Last Admin: 12/09/17 17:29 Dose: 10 mg Quetiapine Fumarate (Seroquel) 25 mg PO TID [facility] PRN Reason: Protocol Stop: 02/07/18 20:59 Last Admin: 12/09/17 21:10 Dose: 25 mg Trazodone HCl (Desyrel) 50 mg PO HS [facility] PRN Reason: Protocol Stop: 02/07/18 20:59 Last Admin: 12/09/17 21:09 Dose: 50 mg Vitamin A (Vitamin A & D) 5 gm TP DAILY [facility] Stop: 01/29/18 08:59 Last Admin: 12/09/17 09:54 Dose: 5 gm General: Alert, Oriented x3, No acute distress HEENT: Atraumatic, PERRLA, EOMI Neck: Supple Cardiovascular: Regular rate, Normal S1, Normal S2 Lungs: Clear to auscultation Abdomen: Bowel sounds, Soft Extremities: no Clubbing, no Cyanosis, no Edema Assessment/Plan - Problem List Patient Problems: All Active Problems AGITATION (Acute) - Assessment Assessment: Current Active Problems Problem Status Onset AGITATION Acute Psychosis Right Foot pain secondary to ulcer HTN PVD DM periphereal neuropathy Mild renal insufficiency partial resection of the Right foot - Plan Plan: continue meds per psychiatry continue wound care treatment of right foot Nutritional Asmnt/Malnutr-PDOC - Dietary Evaluation Malnutrition Findings (Please click <Entered> for more info): Nutritional Asmnt/Malnutrition Start: 12/01/17 17: 27 Text: Status: Complete Freq: Document 12/01/17 17:27 [email or web address] (Rec: 12/01/17 17:34 [email or web address] [email or web address]) Nutritional Asmnt/Malnutrition Patient General Information Nutritional Screening Moderate Risk Consult Diagnosis psychosis Pertinent Medical Hx/Surgical Hx HTN, psychosis, DM Subjective Information Consult received for diabetic foot ulcer. Pt seen sitting in kim-chair, confused. Spoke with RN, pt eats everything, no problem of eating. Current Diet Order/ Nutrition Support CCHO 60gm Pertinent Medications vit C, folate, novolog, seroquel, vit Ba, vit A&D Pertinent Labs 11/29 Na 130, glucose 89 Nutritional Hx/Data Height 1.83 m Height (Calculated Centimeters) 182.9 Current Weight (lbs) 86.183 kg Weight (Calculated Kilograms) 86.2 Weight (Calculated Grams) 09520.6 [place] Body Weight 178 Body Mass Index (BMI) 25.7 Weight Status Overweight GI Symptoms GI Symptoms None Last BM 12/01 Difficult in: None Skin Integrity/Comment: right foot plantar diabetic ulcer Estimated Nutritional Goals BEE in Kcals: Using Current wt Calories/Kcals/Kg 25-30 Kcals Calculated 4116-0169 Protein: Using Current wt Protein g/k-1.1 Protein Calculated 86-95 Fluid: ml 2150-2580ml (1ml/klca) Nutritional Problem 1. Problem Problem increased nutrition needs ( protein) Etiology increased metabolic demand for wound healing Signs/Symptoms: diabetic ulcer Malnutrition Alert Protein-Calorie Malnutrition N/A Is there a minimum of two criteria No selected? Query Text:Check all the applicable criteria. A minimum of two criteria are recommended for diagnosis of either severe or non-severe malnutrition. Intervention/Recommendation Comments 1. Continue with current diet as ordered. 2. Monitor PO intake, wt, labs and skin integrity 3. F/U as low risk in 7da ys, 12/08, PO check 12/03 Expected Outcomes/Goals Expected Outcomes/Goals 1. PO intake to meet at least 75% of nutritional needs. 2. Wt stability, skin to remain intact, labs to approach WNL.
[2017-12-10] MEDS: Multivitamin w/ Minerals Tab PO SCH (09:03)
[2017-12-10] MEDS: NYSTATIN 100000 UNITS/GM POWD TP SCH ×2 (09:07→17:39)
[2017-12-10] MEDS: Vitamin A/Vitamin D 5 gm Packet TP SCH (09:08)
[2017-12-10] MEDS: Enoxaparin 30 mg/0.3 mL 0.3mL Syr SUBQ SCH (11:05)
--- NOTE | 2017-12-11 05:48 | General Progress Note ---
Subjective - Review of Systems Service Date: 12/11/17 Subjective: Psychosis. Patient is confused, still agitated VS T97.7 P73 BP 132/66 R19 Objective - Results Result Diagrams: 12/08/17 10:10 12/08/17 10:10 Recent Labs: Laboratory Last Values WBC 7.7 Th/cmm (4.8-10.8) 12/08/17 10:10 RBC 4.87 Mil/cmm (3.80-5.80) 12/08/17 10:10 Hgb 13.4 gm/dL (12-16) 12/08/17 10:10 Hct 39.9 % (41.0-60) L 12/08/17 10:10 MCV 81.9 fl (80-99) 12/08/17 10:10 MCH 27.5 pg (27.0-31.0) 12/08/17 10:10 MCHC Differential 33.5 pg (28.0-36.0) 12/08/17 10:10 RDW 16.0 % (11.5-20.0) 12/08/17 10:10 Plt Count 266 Th/cmm (150-400) 12/08/17 10:10 MPV 8.2 fl 12/08/17 10:10 Neutrophils % 67.3 % (40.0-80.0) 12/08/17 10:10 Lymphocytes % 19.4 % (20.0-50.0) L 12/08/17 10:10 Monocytes % 12.1 % (2.0-10.0) H 12/08/17 10:10 Eosinophils % 1.2 % (0.0-5.0) 12/08/17 10:10 Basophils % 0.0 % (0.0-2.0) 12/08/17 10:10 Sodium 133 mEq/L (136-145) L 12/08/17 10:10 Potassium 4.0 mEq/L (3.5-5.1) 12/08/17 10:10 Chloride 100 mEq/L (98-107) 12/08/17 10:10 Carbon Dioxide 27.2 mEq/L (21.0-31.0) 12/08/17 10:10 Anion Gap 9.8 (7.0-16.0) 12/08/17 10:10 BUN 16 mg/dL (7-25) 12/08/17 10:10 Creatinine 0.7 mg/dL (0.7-1.3) 12/08/17 10:10 Est GFR ( Amer) > 60.0 ml/min (>90) 12/08/17 10:10 Est GFR (Non-Af Amer) > 60.0 ml/min 12/08/17 10:10 BUN/Creatinine Ratio 22.9 12/08/17 10:10 Glucose 90 mg/dL (70-105) 12/08/17 10:10 Whole Bld Lactic Acid 0.62 mmol/L (0.60-1.99) 11/29/17 21:22 Calcium 9.3 mg/dL (8.6-10.3) 12/08/17 10:10 Magnesium 2.1 mg/dL (1.9-2.7) 11/29/17 21:22 Total Bilirubin 0.5 mg/dL (0.3-1.0) 11/29/17 21:22 AST 12 U/L (13-39) L 11/29/17 21:22 ALT 15 U/L (7-52) 11/29/17 21:22 Alkaline Phosphatase 77 U/L (34-104) 11/29/17 21:22 Total Protein 6.8 gm/dL (6.0-8.3) 11/29/17 21:22 Albumin 3.9 gm/dL (4.2-5.5) L 11/29/17 21:22 Globulin 2.9 gm/dL 11/29/17 21:22 Albumin/Globulin Ratio 1.3 (1.0-1.8) 11/29/17 21:22 Free T4 1.22 ng/dL (0.82-1.77) 11/29/17 21:22 TSH 3.23 uIU/ml (0.34-5.60) 11/29/17 21:22 - Physical Exam Vitals and I&O: Vital Signs Temp 95.5 F 12/10/17 20:00 Pulse 88 12/10/17 20:41 Resp 18 12/10/17 20:00 BP 113/61 12/10/17 20:41 Pulse Ox 97 12/10/17 20:00 Intake & Output 12/10/17 12/10/17 12/11/17 06:59 18:59 06:59 Intake Total 740 1200 480 Balance 740 1200 480 Intake: Oral 740 1200 480 Other: # Voids 2 4 2 # Bowel Movements 1 Stool Characteristics Soft Soft Soft Active Medications: Current Medications Acetaminophen (Tylenol) 650 mg PO Q4HR PRN PRN Reason: Mild Pain / Temp above 100 Stop: 01/29/18 03:25 Last Admin: 12/01/17 00:51 Dose: 650 mg Al Hydrox/Mg Hydrox/Simethicone (Maalox) 30 ml PO Q4HR PRN PRN Reason: GI DISTRESS Stop: 01/29/18 03:25 Ascorbic Acid (Vitamin C) 500 mg PO DAILY [facility] Stop: 01/29/18 08:59 Last Admin: 12/10/17 09:01 Dose: 500 mg Divalproex Sodium (Depakote Dr) 250 mg PO Q12HR [facility] PRN Reason: Protocol Stop: 01/30/18 18:46 Last Admin: 12/10/17 20:40 Dose: 250 mg Enoxaparin Sodium (Lovenox) 30 mg SUBQ DAILY [facility] Stop: 01/29/18 08:59 Last Admin: 12/10/17 11:05 Dose: 30 mg Folic Acid (Folate) 1 mg PO HS [facility] Stop: 01/29/18 20:59 Last Admin: 12/10/17 20:40 Dose: 1 mg Hydralazine HCl (Apresoline) 10 mg PO TID [facility] Stop: 01/29/18 08:59 Last Admin: 12/10/17 20:41 Dose: 10 mg Insulin Aspart (Novolog Insulin Sliding Scale) 0 units SUBQ ACHS [facility] PRN Reason: Protocol Stop: 01/29/18 07:29 Last Admin: 12/10/17 20:39 Dose: Not Given Lorazepam (Ativan) 0.5 mg PO Q4HR PRN; Protocol PRN Reason: Agitation Stop: 12/30/17 03:25 Last Admin: 12/10/17 20:43 Dose: 0.5 mg Magnesium Hydroxide (Milk Of Magnesia) 30 ml PO HS PRN PRN Reason: Constipation Nystatin (Nystop) 0 units TP BID [facility] Stop: 02/04/18 16:59 Last Admin: 12/10/17 17:39 Dose: 1 units Propranolol HCl (Inderal) 10 mg PO BID [facility] Stop: 01/29/18 08:59 Last Admin: 12/10/17 17:38 Dose: 10 mg Quetiapine Fumarate (Seroquel) 25 mg PO TID [facility] PRN Reason: Protocol Stop: 02/07/18 20:59 Last Admin: 12/10/17 20:42 Dose: 25 mg Trazodone HCl (Desyrel) 50 mg PO HS [facility] PRN Reason: Protocol Stop: 02/07/18 20:59 Last Admin: 12/10/17 20:43 Dose: 50 mg Vitamin A (Vitamin A & D) 5 gm TP DAILY [facility] Stop: 01/29/18 08:59 Last Admin: 12/10/17 09:08 Dose: 5 gm General: Alert, Oriented x3, No acute distress HEENT: Atraumatic, PERRLA, EOMI Neck: Supple Cardiovascular: Regular rate, Normal S1, Normal S2 Lungs: Clear to auscultation Abdomen: Bowel sounds, Soft Extremities: no Clubbing, no Cyanosis, no Edema Assessment/Plan - Problem List Patient Problems: All Active Problems AGITATION (Acute) - Assessment Assessment: Current Active Problems Problem Status Onset AGITATION Acute Psychosis Right Foot pain secondary to ulcer HTN PVD DM periphereal neuropathy Mild renal insufficiency partial resection of the Right foot - Plan Plan: continue meds per psychiatry continue wound care treatment of right foot Nutritional Asmnt/Malnutr-PDOC - Dietary Evaluation Malnutrition Findings (Please click <Entered> for more info): Nutritional Asmnt/Malnutrition Start: 12/01/17 17: 27 Text: Status: Complete Freq: Document 12/01/17 17:27 [email or web address] (Rec: 12/01/17 17:34 [email or web address] Nutritional Asmnt/Malnutrition Patient General Information Nutritional Screening Moderate Risk Consult Diagnosis psychosis Pertinent Medical Hx/Surgical Hx HTN, psychosis, DM Subjective Information Consult received for diabetic foot ulcer. Pt seen sitting in kim-chair, confused. Spoke with RN, pt eats everything, no problem of eating. Current Diet Order/ Nutrition Support CCHO 60gm Pertinent Medications vit C, folate, novolog, seroquel, vit Ba, vit A&D Pertinent Labs 11/29 Na 130, glucose 89 Nutritional Hx/Data Height 1.83 m Height (Calculated Centimeters) 182.9 Current Weight (lbs) 86.183 kg Weight (Calculated Kilograms) 86.2 Weight (Calculated Grams) 47783.6 [place] Body Weight 178 Body Mass Index (BMI) 25.7 Weight Status Overweight GI Symptoms GI Symptoms None Last BM 12/01 Difficult in: None Skin Integrity/Comment: right foot plantar diabetic ulcer Estimated Nutritional Goals BEE in Kcals: Using Current wt Calories/Kcals/Kg 25-30 Kcals Calculated 0400-8392 Protein: Using Current wt Protein g/k-1.1 Protein Calculated 86-95 Fluid: ml 2150-2580ml (1ml/klca) Nutritional Problem 1. Problem Problem increased nutrition needs ( protein) Etiology increased metabolic demand for wound healing Signs/Symptoms: diabetic ulcer Malnutrition Alert Protein-Calorie Malnutrition N/A Is there a minimum of two criteria No selected? Query Text:Check all the applicable criteria. A minimum of two criteria are recommended for diagnosis of either severe or non-severe malnutrition. Intervention/Recommendation Comments 1. Continue with current diet as ordered. 2. Monitor PO intake, wt, labs and skin integrity 3. F/U as low risk in 7da ys, 12/08, PO check 12/03 Expected Outcomes/Goals Expected Outcomes/Goals 1. PO intake to meet at least 75% of nutritional needs. 2. Wt stability, skin to remain intact, labs to approach WNL.
[2017-12-11] MEDS: INSULIN ASPART SLIDING SCALE 100 UNITS/ML UNIT SUBQ SCH ×4 (06:42→20:43)
--- NOTE | 2017-12-11 09:03 | Progress Notes ---
DATE: 12/10/2017 PSYCHIATRIC PROGRESS NOTE SUBJECTIVE: Staff was spoken to. The patient is interviewed. Mood is noted to be irritable. Affect is constricted. The patient is getting easily disruptive. The patient has been trying to pull the plank of the ZD chair. The patient has no insight. The patient's family, particularly the daughter, has been having difficult time with the medications that the patient has received. At the request of the family members, the Ambien, the Seroquel, and the Depakote have been discontinued, and the patient is being maintained with trazodone, and the patient's family states that the patient was on Zoloft and it is going to be considered. ASSESSMENT: The patient is still impulsive and demented. PLAN: To continue the patient with supportive therapy and follow. JOB# [id number]
[2017-12-11] MEDS: Multivitamin w/ Minerals Tab PO SCH (09:24)
[2017-12-11] MEDS: Enoxaparin 30 mg/0.3 mL 0.3mL Syr SUBQ SCH (09:25)
[2017-12-11] MEDS: Vitamin A/Vitamin D 5 gm Packet TP SCH (09:27)
[2017-12-11] MEDS: NYSTATIN 100000 UNITS/GM POWD TP SCH ×2 (09:27→18:01)
--- NOTE | 2017-12-11 16:45 | Progress Notes ---
DATE: 12/11/2017 SUBJECTIVE: Staff was spoken to. The patient is interviewed. Mood is noted to be irritable. Affect is constricted. Coping skills are noted to be poor. Sleep and appetite are noted to be very poor. The patient is screaming and yelling and the patient needs to be redirected. No side effects to the medications are noted. Staff are trying to look for placement for this patient, but so far no placement is available. The patient's family wants the patient to be at the [facility]. ASSESSMENT: The patient is still impulsive and having dementia and related psychosis. PLAN: To continue the patient on the current medications and follow. JOB# [id number]
[2017-12-12] MEDS: INSULIN ASPART SLIDING SCALE 100 UNITS/ML UNIT SUBQ SCH ×4 (06:38→21:41)
--- NOTE | 2017-12-12 06:44 | General Progress Note ---
Subjective - Review of Systems Service Date: 12/12/17 Subjective: Psychosis. Patient is confused, still agitated VS T96.2 P79 BP 138/63 R18 Objective - Results Result Diagrams: 12/08/17 10:10 12/08/17 10:10 Recent Labs: Laboratory Last Values WBC 7.7 Th/cmm (4.8-10.8) 12/08/17 10:10 RBC 4.87 Mil/cmm (3.80-5.80) 12/08/17 10:10 Hgb 13.4 gm/dL (12-16) 12/08/17 10:10 Hct 39.9 % (41.0-60) L 12/08/17 10:10 MCV 81.9 fl (80-99) 12/08/17 10:10 MCH 27.5 pg (27.0-31.0) 12/08/17 10:10 MCHC Differential 33.5 pg (28.0-36.0) 12/08/17 10:10 RDW 16.0 % (11.5-20.0) 12/08/17 10:10 Plt Count 266 Th/cmm (150-400) 12/08/17 10:10 MPV 8.2 fl 12/08/17 10:10 Neutrophils % 67.3 % (40.0-80.0) 12/08/17 10:10 Lymphocytes % 19.4 % (20.0-50.0) L 12/08/17 10:10 Monocytes % 12.1 % (2.0-10.0) H 12/08/17 10:10 Eosinophils % 1.2 % (0.0-5.0) 12/08/17 10:10 Basophils % 0.0 % (0.0-2.0) 12/08/17 10:10 Sodium 133 mEq/L (136-145) L 12/08/17 10:10 Potassium 4.0 mEq/L (3.5-5.1) 12/08/17 10:10 Chloride 100 mEq/L (98-107) 12/08/17 10:10 Carbon Dioxide 27.2 mEq/L (21.0-31.0) 12/08/17 10:10 Anion Gap 9.8 (7.0-16.0) 12/08/17 10:10 BUN 16 mg/dL (7-25) 12/08/17 10:10 Creatinine 0.7 mg/dL (0.7-1.3) 12/08/17 10:10 Est GFR ( Amer) > 60.0 ml/min (>90) 12/08/17 10:10 Est GFR (Non-Af Amer) > 60.0 ml/min 12/08/17 10:10 BUN/Creatinine Ratio 22.9 12/08/17 10:10 Glucose 90 mg/dL (70-105) 12/08/17 10:10 Whole Bld Lactic Acid 0.62 mmol/L (0.60-1.99) 11/29/17 21:22 Calcium 9.3 mg/dL (8.6-10.3) 12/08/17 10:10 Magnesium 2.1 mg/dL (1.9-2.7) 11/29/17 21:22 Total Bilirubin 0.5 mg/dL (0.3-1.0) 11/29/17 21:22 AST 12 U/L (13-39) L 11/29/17 21:22 ALT 15 U/L (7-52) 11/29/17 21:22 Alkaline Phosphatase 77 U/L (34-104) 11/29/17 21:22 Total Protein 6.8 gm/dL (6.0-8.3) 11/29/17 21:22 Albumin 3.9 gm/dL (4.2-5.5) L 11/29/17 21:22 Globulin 2.9 gm/dL 11/29/17 21:22 Albumin/Globulin Ratio 1.3 (1.0-1.8) 11/29/17 21:22 Free T4 1.22 ng/dL (0.82-1.77) 11/29/17 21:22 TSH 3.23 uIU/ml (0.34-5.60) 11/29/17 21:22 - Physical Exam Vitals and I&O: Vital Signs Temp 96.2 F 12/12/17 06:40 Pulse 79 12/12/17 06:40 Resp 18 12/12/17 06:40 BP 138/63 12/12/17 06:40 Pulse Ox 99 12/12/17 06:40 Intake & Output 12/11/17 12/11/1718 06:59 18:59 06:59 Intake Total 480 600 360 Balance 480 600 360 Intake: Oral 480 600 360 Other: # Voids 2 3 1 # Bowel Movements 1 1 Stool Characteristics Soft Soft Soft Active Medications: Current Medications Acetaminophen (Tylenol) 650 mg PO Q4HR PRN PRN Reason: Mild Pain / Temp above 100 Stop: 01/29/18 03:25 Last Admin: 12/01/17 00:51 Dose: 650 mg Al Hydrox/Mg Hydrox/Simethicone (Maalox) 30 ml PO Q4HR PRN PRN Reason: GI DISTRESS Stop: 01/29/18 03:25 Ascorbic Acid (Vitamin C) 500 mg PO DAILY [facility] Stop: 01/29/18 08:59 Last Admin: 12/11/17 09:24 Dose: 500 mg Divalproex Sodium (Depakote Dr) 250 mg PO Q12HR [facility] PRN Reason: Protocol Stop: 01/30/18 18:46 Last Admin: 12/11/17 20:44 Dose: 250 mg Enoxaparin Sodium (Lovenox) 30 mg SUBQ DAILY [facility] Stop: 01/29/18 08:59 Last Admin: 12/11/17 09:25 Dose: 30 mg Folic Acid (Folate) 1 mg PO HS [facility] Stop: 01/29/18 20:59 Last Admin: 12/11/17 20:45 Dose: 1 mg Hydralazine HCl (Apresoline) 10 mg PO TID [facility] Stop: 01/29/18 08:59 Last Admin: 12/11/17 20:45 Dose: 10 mg Insulin Aspart (Novolog Insulin Sliding Scale) 0 units SUBQ ACHS [facility] PRN Reason: Protocol Stop: 01/29/18 07:29 Last Admin: 12/12/17 06:38 Dose: Not Given Lorazepam (Ativan) 0.5 mg PO Q4HR PRN; Protocol PRN Reason: Agitation Stop: 12/30/17 03:25 Last Admin: 12/12/17 00:54 Dose: 0.5 mg Magnesium Hydroxide (Milk Of Magnesia) 30 ml PO HS PRN PRN Reason: Constipation Nystatin (Nystop) 0 units TP BID [facility] Stop: 02/04/18 16:59 Last Admin: 12/11/17 18:01 Dose: 1 units Propranolol HCl (Inderal) 10 mg PO BID [facility] Stop: 01/29/18 08:59 Last Admin: 12/11/17 17:59 Dose: 10 mg Quetiapine Fumarate (Seroquel) 25 mg PO TID [facility] PRN Reason: Protocol Stop: 02/07/18 20:59 Last Admin: 12/11/17 20:46 Dose: 25 mg Trazodone HCl (Desyrel) 50 mg PO HS [facility] PRN Reason: Protocol Stop: 02/07/18 20:59 Last Admin: 12/11/17 20:46 Dose: 50 mg Vitamin A (Vitamin A & D) 5 gm TP DAILY [facility] Stop: 01/29/18 08:59 Last Admin: 12/11/17 09:27 Dose: 5 gm General: Alert, Oriented x3, No acute distress HEENT: Atraumatic, PERRLA, EOMI Neck: Supple Cardiovascular: Regular rate, Normal S1, Normal S2 Lungs: Clear to auscultation Abdomen: Bowel sounds, Soft Extremities: no Clubbing, no Cyanosis, no Edema Assessment/Plan - Problem List Patient Problems: All Active Problems AGITATION (Acute) - Assessment Assessment: Current Active Problems Problem Status Onset AGITATION Acute Psychosis Right Foot pain secondary to ulcer HTN PVD DM periphereal neuropathy Mild renal insufficiency partial resection of the Right foot - Plan Plan: continue meds per psychiatry continue wound care treatment of right foot Nutritional Asmnt/Malnutr-PDOC - Dietary Evaluation Malnutrition Findings (Please click <Entered> for more info): Nutritional Asmnt/Malnutrition Start: 12/01/17 17: 27 Text: Status: Complete Freq: Document 12/01/17 17:27 LCGLENNY (Rec: 12/01/17 17:34 [email or web address]) Nutritional Asmnt/Malnutrition Patient General Information Nutritional Screening Moderate Risk Consult Diagnosis psychosis Pertinent Medical Hx/Surgical Hx HTN, psychosis, DM Subjective Information Consult received for diabetic foot ulcer. Pt seen sitting in kim-chair, confused. Spoke with RN, pt eats everything, no problem of eating. Current Diet Order/ Nutrition Support CCHO 60gm Pertinent Medications vit C, folate, novolog, seroquel, vit Ba, vit A&D Pertinent Labs 11/29 Na 130, glucose 89 Nutritional Hx/Data Height 1.83 m Height (Calculated Centimeters) 182.9 Current Weight (lbs) 86.183 kg Weight (Calculated Kilograms) 86.2 Weight (Calculated Grams) 59698.6 [place] Body Weight 178 Body Mass Index (BMI) 25.7 Weight Status Overweight GI Symptoms GI Symptoms None Last BM 12/01 Difficult in: None Skin Integrity/Comment: right foot plantar diabetic ulcer Estimated Nutritional Goals BEE in Kcals: Using Current wt Calories/Kcals/Kg 25-30 Kcals Calculated 4226-6926 Protein: Using Current wt Protein g/k-1.1 Protein Calculated 86-95 Fluid: ml 2150-2580ml (1ml/klca) Nutritional Problem 1. Problem Problem increased nutrition needs ( protein) Etiology increased metabolic demand for wound healing Signs/Symptoms: diabetic ulcer Malnutrition Alert Protein-Calorie Malnutrition N/A Is there a minimum of two criteria No selected? Query Text:Check all the applicable criteria. A minimum of two criteria are recommended for diagnosis of either severe or non-severe malnutrition. Intervention/Recommendation Comments 1. Continue with current diet as ordered. 2. Monitor PO intake, wt, labs and skin integrity 3. F/U as low risk in 7da ys, 12/08, PO check 12/03 Expected Outcomes/Goals Expected Outcomes/Goals 1. PO intake to meet at least 75% of nutritional needs. 2. Wt stability, skin to remain intact, labs to approach WNL.
[2017-12-12] MEDS: Multivitamin w/ Minerals Tab PO SCH (09:12)
[2017-12-12] MEDS: NYSTATIN 100000 UNITS/GM POWD TP SCH ×2 (09:13→17:07)
[2017-12-12] MEDS: Enoxaparin 30 mg/0.3 mL 0.3mL Syr SUBQ SCH (09:13)
[2017-12-12] MEDS: Vitamin A/Vitamin D 5 gm Packet TP SCH (09:16)
--- NOTE | 2017-12-12 16:37 | Progress Notes ---
DATE: 12/12/2017 PSYCHIATRIC PROGRESS NOTE TIME PATIENT SEEN: SUBJECTIVE: Staff was spoken to. The patient is interviewed. Mood is noted to be irritable. Affect is constricted. The patient has to be given a dose of the Ativan to calm him down. The patient's family wants the patient to be not on antipsychotics and mood stabilizers, but the patient could not be contained and the patient has to be placed on Trileptal today and the Depakote has been discontinued. The patient is currently contained on the Seroquel 125 mg 3 times a day. ASSESSMENT: The patient is still impulsive and confused and demented. PLAN: To continue the patient with the supportive therapy and followup. [facility]# [id number]
[2017-12-13] MEDS: INSULIN ASPART SLIDING SCALE 100 UNITS/ML UNIT SUBQ SCH ×4 (06:34→20:58)
--- NOTE | 2017-12-13 07:38 | General Progress Note ---
Subjective - Review of Systems Service Date: 12/13/17 Subjective: Psychosis. Patient is confused, still agitated VS T97.6 P94 BP 139/80 R20 Objective - Results Result Diagrams: 12/08/17 10:10 12/08/17 10:10 Recent Labs: Laboratory Last Values WBC 7.7 Th/cmm (4.8-10.8) 12/08/17 10:10 RBC 4.87 Mil/cmm (3.80-5.80) 12/08/17 10:10 Hgb 13.4 gm/dL (12-16) 12/08/17 10:10 Hct 39.9 % (41.0-60) L 12/08/17 10:10 MCV 81.9 fl (80-99) 12/08/17 10:10 MCH 27.5 pg (27.0-31.0) 12/08/17 10:10 MCHC Differential 33.5 pg (28.0-36.0) 12/08/17 10:10 RDW 16.0 % (11.5-20.0) 12/08/17 10:10 Plt Count 266 Th/cmm (150-400) 12/08/17 10:10 MPV 8.2 fl 12/08/17 10:10 Neutrophils % 67.3 % (40.0-80.0) 12/08/17 10:10 Lymphocytes % 19.4 % (20.0-50.0) L 12/08/17 10:10 Monocytes % 12.1 % (2.0-10.0) H 12/08/17 10:10 Eosinophils % 1.2 % (0.0-5.0) 12/08/17 10:10 Basophils % 0.0 % (0.0-2.0) 12/08/17 10:10 Sodium 133 mEq/L (136-145) L 12/08/17 10:10 Potassium 4.0 mEq/L (3.5-5.1) 12/08/17 10:10 Chloride 100 mEq/L (98-107) 12/08/17 10:10 Carbon Dioxide 27.2 mEq/L (21.0-31.0) 12/08/17 10:10 Anion Gap 9.8 (7.0-16.0) 12/08/17 10:10 BUN 16 mg/dL (7-25) 12/08/17 10:10 Creatinine 0.7 mg/dL (0.7-1.3) 12/08/17 10:10 Est GFR ( Amer) > 60.0 ml/min (>90) 12/08/17 10:10 Est GFR (Non-Af Amer) > 60.0 ml/min 12/08/17 10:10 BUN/Creatinine Ratio 22.9 12/08/17 10:10 Glucose 90 mg/dL (70-105) 12/08/17 10:10 Whole Bld Lactic Acid 0.62 mmol/L (0.60-1.99) 11/29/17 21:22 Calcium 9.3 mg/dL (8.6-10.3) 12/08/17 10:10 Magnesium 2.1 mg/dL (1.9-2.7) 11/29/17 21:22 Total Bilirubin 0.5 mg/dL (0.3-1.0) 11/29/17 21:22 AST 12 U/L (13-39) L 11/29/17 21:22 ALT 15 U/L (7-52) 11/29/17 21:22 Alkaline Phosphatase 77 U/L (34-104) 11/29/17 21:22 Total Protein 6.8 gm/dL (6.0-8.3) 11/29/17 21:22 Albumin 3.9 gm/dL (4.2-5.5) L 11/29/17 21:22 Globulin 2.9 gm/dL 11/29/17 21:22 Albumin/Globulin Ratio 1.3 (1.0-1.8) 11/29/17 21:22 Free T4 1.22 ng/dL (0.82-1.77) 11/29/17 21:22 TSH 3.23 uIU/ml (0.34-5.60) 11/29/17 21:22 - Physical Exam Vitals and I&O: Vital Signs Temp 97.6 F 12/13/17 06:11 Pulse 94 12/13/17 06:11 Resp 20 12/13/17 06:11 BP 139/80 12/13/17 06:11 Pulse Ox 98 12/13/17 06:11 Intake & Output 12/12/17 12/13/1718 18:59 06:59 18:59 Intake Total 450 480 Balance 450 480 Intake: Oral 450 480 Other: # Voids 3 1 # Bowel Movements 1 Stool Characteristics Soft Active Medications: Current Medications Acetaminophen (Tylenol) 650 mg PO Q4HR PRN PRN Reason: Mild Pain / Temp above 100 Stop: 01/29/18 03:25 Last Admin: 12/01/17 00:51 Dose: 650 mg Al Hydrox/Mg Hydrox/Simethicone (Maalox) 30 ml PO Q4HR PRN PRN Reason: GI DISTRESS Stop: 01/29/18 03:25 Ascorbic Acid (Vitamin C) 500 mg PO DAILY [facility] Stop: 01/29/18 08:59 Last Admin: 12/12/17 09:12 Dose: 500 mg Enoxaparin Sodium (Lovenox) 30 mg SUBQ DAILY [facility] Stop: 01/29/18 08:59 Last Admin: 12/12/17 09:13 Dose: 30 mg Folic Acid (Folate) 1 mg PO HS [facility] Stop: 01/29/18 20:59 Last Admin: 12/12/17 21:50 Dose: 1 mg Hydralazine HCl (Apresoline) 10 mg PO TID [facility] Stop: 01/29/18 08:59 Last Admin: 12/12/17 21:43 Dose: Not Given Insulin Aspart (Novolog Insulin Sliding Scale) 0 units SUBQ ACHS [facility] PRN Reason: Protocol Stop: 01/29/18 07:29 Last Admin: 12/13/17 06:34 Dose: Not Given Lorazepam (Ativan) 0.5 mg PO Q4HR PRN; Protocol PRN Reason: Agitation Stop: 12/30/17 03:25 Last Admin: 12/12/17 23:24 Dose: 0.5 mg Magnesium Hydroxide (Milk Of Magnesia) 30 ml PO HS PRN PRN Reason: Constipation Nystatin (Nystop) 0 units TP BID [facility] Stop: 02/04/18 16:59 Last Admin: 12/12/17 17:07 Dose: 1 units Oxcarbazepine (Trileptal) 150 mg PO BID [facility] PRN Reason: Protocol Stop: 02/10/18 16:59 Last Admin: 12/12/17 17:08 Dose: 150 mg Propranolol HCl (Inderal) 10 mg PO BID [facility] Stop: 01/29/18 08:59 Last Admin: 12/12/17 17:08 Dose: 10 mg Quetiapine Fumarate (Seroquel) 25 mg PO TID [facility] PRN Reason: Protocol Stop: 02/07/18 20:59 Last Admin: 12/12/17 21:50 Dose: 25 mg Trazodone HCl (Desyrel) 50 mg PO HS [facility] PRN Reason: Protocol Stop: 02/07/18 20:59 Last Admin: 12/12/17 21:49 Dose: 50 mg Vitamin A (Vitamin A & D) 5 gm TP DAILY [facility] Stop: 01/29/18 08:59 Last Admin: 12/12/17 09:16 Dose: 5 gm General: Alert, Oriented x3, No acute distress HEENT: Atraumatic, PERRLA, EOMI Neck: Supple Cardiovascular: Regular rate, Normal S1, Normal S2 Lungs: Clear to auscultation Abdomen: Bowel sounds, Soft Extremities: no Clubbing, no Cyanosis, no Edema Assessment/Plan - Problem List Patient Problems: All Active Problems AGITATION (Acute) - Assessment Assessment: Current Active Problems Problem Status Onset AGITATION Acute Psychosis Right Foot pain secondary to ulcer HTN PVD DM periphereal neuropathy Mild renal insufficiency partial resection of the Right foot - Plan Plan: continue meds per psychiatry continue wound care treatment of right foot Nutritional Asmnt/Malnutr-PDOC - Dietary Evaluation Malnutrition Findings (Please click <Entered> for more info): Nutritional Asmnt/Malnutrition Start: 12/01/17 17: 27 Text: Status: Complete Freq: Document 12/01/17 17:27 TRU (Rec: 12/01/17 17:34 [email or web address]) Nutritional Asmnt/Malnutrition Patient General Information Nutritional Screening Moderate Risk Consult Diagnosis psychosis Pertinent Medical Hx/Surgical Hx HTN, psychosis, DM Subjective Information Consult received for diabetic foot ulcer. Pt seen sitting in kim-chair, confused. Spoke with RN, pt eats everything, no problem of eating. Current Diet Order/ Nutrition Support CCHO 60gm Pertinent Medications vit C, folate, novolog, seroquel, vit Ba, vit A&D Pertinent Labs 11/29 Na 130, glucose 89 Nutritional Hx/Data Height 1.83 m Height (Calculated Centimeters) 182.9 Current Weight (lbs) 86.183 kg Weight (Calculated Kilograms) 86.2 Weight (Calculated Grams) 65200.6 [place] Body Weight 178 Body Mass Index (BMI) 25.7 Weight Status Overweight GI Symptoms GI Symptoms None Last BM 12/01 Difficult in: None Skin Integrity/Comment: right foot plantar diabetic ulcer Estimated Nutritional Goals BEE in Kcals: Using Current wt Calories/Kcals/Kg 25-30 Kcals Calculated 6409-9869 Protein: Using Current wt Protein g/k-1.1 Protein Calculated 86-95 Fluid: ml 2150-2580ml (1ml/klca) Nutritional Problem 1. Problem Problem increased nutrition needs ( protein) Etiology increased metabolic demand for wound healing Signs/Symptoms: diabetic ulcer Malnutrition Alert Protein-Calorie Malnutrition N/A Is there a minimum of two criteria No selected? Query Text:Check all the applicable criteria. A minimum of two criteria are recommended for diagnosis of either severe or non-severe malnutrition. Intervention/Recommendation Comments 1. Continue with current diet as ordered. 2. Monitor PO intake, wt, labs and skin integrity 3. F/U as low risk in 7da ys, 12/08, PO check 12/03 Expected Outcomes/Goals Expected Outcomes/Goals 1. PO intake to meet at least 75% of nutritional needs. 2. Wt stability, skin to remain intact, labs to approach WNL.
[2017-12-13] MEDS: Enoxaparin 30 mg/0.3 mL 0.3mL Syr SUBQ SCH (10:11)
[2017-12-13] MEDS: Multivitamin w/ Minerals Tab PO SCH (10:11)
[2017-12-13] MEDS: Vitamin A/Vitamin D 5 gm Packet TP SCH (10:11)
[2017-12-13] MEDS: NYSTATIN 100000 UNITS/GM POWD TP SCH ×2 (10:15→18:05)
--- NOTE | 2017-12-14 03:37 | Progress Notes ---
DATE: 12/13/2017 SUBJECTIVE: Staff was spoken to. The patient is interviewed. Mood is noted to be irritable. Affect is constricted. Insight and judgment at this time are noted to be still impaired. Impulse control is little bit poor. Coping skills are also noted to be very poor. The patient has been still testing the limits. No side effects to the medications are noted. The patient is currently on Seroquel 25 mg 3 times a day and trazodone 50 mg at bedtime. ASSESSMENT: The patient has been placed on oxcarbazepine 150 mg twice a day, which is going to be increased to 3 times a day in view of his agitation and out of control behavior. The patient is going to be closely monitored. manager contract is going to be kept in touch with regard to the patient's placement issues. JOB# [id number]
[2017-12-14] MEDS: INSULIN ASPART SLIDING SCALE 100 UNITS/ML UNIT SUBQ SCH ×4 (06:45→20:58)
--- NOTE | 2017-12-14 07:51 | General Progress Note ---
Subjective - Review of Systems Service Date: 12/14/17 Subjective: Psychosis. Patient is confused, still agitated VS T97.5 P82 BP 136/65 R20 Objective - Results Result Diagrams: 12/08/17 10:10 12/08/17 10:10 Recent Labs: Laboratory Last Values WBC 7.7 Th/cmm (4.8-10.8) 12/08/17 10:10 RBC 4.87 Mil/cmm (3.80-5.80) 12/08/17 10:10 Hgb 13.4 gm/dL (12-16) 12/08/17 10:10 Hct 39.9 % (41.0-60) L 12/08/17 10:10 MCV 81.9 fl (80-99) 12/08/17 10:10 MCH 27.5 pg (27.0-31.0) 12/08/17 10:10 MCHC Differential 33.5 pg (28.0-36.0) 12/08/17 10:10 RDW 16.0 % (11.5-20.0) 12/08/17 10:10 Plt Count 266 Th/cmm (150-400) 12/08/17 10:10 MPV 8.2 fl 12/08/17 10:10 Neutrophils % 67.3 % (40.0-80.0) 12/08/17 10:10 Lymphocytes % 19.4 % (20.0-50.0) L 12/08/17 10:10 Monocytes % 12.1 % (2.0-10.0) H 12/08/17 10:10 Eosinophils % 1.2 % (0.0-5.0) 12/08/17 10:10 Basophils % 0.0 % (0.0-2.0) 12/08/17 10:10 Sodium 133 mEq/L (136-145) L 12/08/17 10:10 Potassium 4.0 mEq/L (3.5-5.1) 12/08/17 10:10 Chloride 100 mEq/L (98-107) 12/08/17 10:10 Carbon Dioxide 27.2 mEq/L (21.0-31.0) 12/08/17 10:10 Anion Gap 9.8 (7.0-16.0) 12/08/17 10:10 BUN 16 mg/dL (7-25) 12/08/17 10:10 Creatinine 0.7 mg/dL (0.7-1.3) 12/08/17 10:10 Est GFR ( Amer) > 60.0 ml/min (>90) 12/08/17 10:10 Est GFR (Non-Af Amer) > 60.0 ml/min 12/08/17 10:10 BUN/Creatinine Ratio 22.9 12/08/17 10:10 Glucose 90 mg/dL (70-105) 12/08/17 10:10 Whole Bld Lactic Acid 0.62 mmol/L (0.60-1.99) 11/29/17 21:22 Calcium 9.3 mg/dL (8.6-10.3) 12/08/17 10:10 Magnesium 2.1 mg/dL (1.9-2.7) 11/29/17 21:22 Total Bilirubin 0.5 mg/dL (0.3-1.0) 11/29/17 21:22 AST 12 U/L (13-39) L 11/29/17 21:22 ALT 15 U/L (7-52) 11/29/17 21:22 Alkaline Phosphatase 77 U/L (34-104) 11/29/17 21:22 Total Protein 6.8 gm/dL (6.0-8.3) 11/29/17 21:22 Albumin 3.9 gm/dL (4.2-5.5) L 11/29/17 21:22 Globulin 2.9 gm/dL 11/29/17 21:22 Albumin/Globulin Ratio 1.3 (1.0-1.8) 11/29/17 21:22 Free T4 1.22 ng/dL (0.82-1.77) 11/29/17 21:22 TSH 3.23 uIU/ml (0.34-5.60) 11/29/17 21:22 - Physical Exam Vitals and I&O: Vital Signs Temp 97.5 F 12/14/17 05:58 Pulse 82 12/14/17 05:58 Resp 20 12/14/17 05:58 BP 136/65 12/14/17 05:58 Pulse Ox 96 12/14/17 05:58 Intake & Output 12/13/17 12/14/1718 18:59 06:59 18:59 Intake Total 480 Balance 480 Intake: Oral 480 Other: # Voids 1 Active Medications: Current Medications Acetaminophen (Tylenol) 650 mg PO Q4HR PRN PRN Reason: Mild Pain / Temp above 100 Stop: 01/29/18 03:25 Last Admin: 12/01/17 00:51 Dose: 650 mg Al Hydrox/Mg Hydrox/Simethicone (Maalox) 30 ml PO Q4HR PRN PRN Reason: GI DISTRESS Stop: 01/29/18 03:25 Ascorbic Acid (Vitamin C) 500 mg PO DAILY [facility] Stop: 01/29/18 08:59 Last Admin: 12/13/17 10:11 Dose: 500 mg Enoxaparin Sodium (Lovenox) 30 mg SUBQ DAILY [facility] Stop: 01/29/18 08:59 Last Admin: 12/13/17 10:11 Dose: 30 mg Folic Acid (Folate) 1 mg PO HS [facility] Stop: 01/29/18 20:59 Last Admin: 12/13/17 20:56 Dose: 1 mg Hydralazine HCl (Apresoline) 10 mg PO TID [facility] Stop: 01/29/18 08:59 Last Admin: 12/13/17 22:06 Dose: 10 mg Insulin Aspart (Novolog Insulin Sliding Scale) 0 units SUBQ ACHS [facility] PRN Reason: Protocol Stop: 01/29/18 07:29 Last Admin: 12/14/17 06:45 Dose: Not Given Lorazepam (Ativan) 0.5 mg PO Q4HR PRN; Protocol PRN Reason: Agitation Stop: 12/30/17 03:25 Last Admin: 12/13/17 20:56 Dose: 0.5 mg Magnesium Hydroxide (Milk Of Magnesia) 30 ml PO HS PRN PRN Reason: Constipation Oxcarbazepine (Trileptal) 150 mg PO TID [facility] PRN Reason: Protocol Stop: 02/11/18 20:59 Propranolol HCl (Inderal) 10 mg PO BID [facility] Stop: 01/29/18 08:59 Last Admin: 12/13/17 18:05 Dose: 10 mg Quetiapine Fumarate (Seroquel) 25 mg PO TID [facility] PRN Reason: Protocol Stop: 02/07/18 20:59 Last Admin: 12/13/17 20:56 Dose: 25 mg Trazodone HCl (Desyrel) 50 mg PO HS [facility] PRN Reason: Protocol Stop: 02/07/18 20:59 Last Admin: 12/13/17 20:56 Dose: 50 mg Vitamin A (Vitamin A & D) 5 gm TP DAILY [facility] Stop: 01/29/18 08:59 Last Admin: 12/13/17 10:11 Dose: 5 gm General: Alert, Oriented x3, No acute distress HEENT: Atraumatic, PERRLA, EOMI Neck: Supple Cardiovascular: Regular rate, Normal S1, Normal S2 Lungs: Clear to auscultation Abdomen: Bowel sounds, Soft Extremities: no Clubbing, no Cyanosis, no Edema Assessment/Plan - Problem List Patient Problems: All Active Problems AGITATION (Acute) - Assessment Assessment: Current Active Problems Problem Status Onset AGITATION Acute Psychosis Right Foot pain secondary to ulcer HTN PVD DM periphereal neuropathy Mild renal insufficiency partial resection of the Right foot - Plan Plan: continue meds per psychiatry continue wound care treatment of right foot Nutritional Asmnt/Malnutr-PDOC - Dietary Evaluation Malnutrition Findings (Please click <Entered> for more info): Nutritional Asmnt/Malnutrition Start: 12/01/17 17: 27 Text: Status: Complete Freq: Document 12/01/17 17:27 TRU (Rec: 12/01/17 17:34 [email or web address]) Nutritional Asmnt/Malnutrition Patient General Information Nutritional Screening Moderate Risk Consult Diagnosis psychosis Pertinent Medical Hx/Surgical Hx HTN, psychosis, DM Subjective Information Consult received for diabetic foot ulcer. Pt seen sitting in kim-chair, confused. Spoke with RN, pt eats everything, no problem of eating. Current Diet Order/ Nutrition Support CCHO 60gm Pertinent Medications vit C, folate, novolog, seroquel, vit Ba, vit A&D Pertinent Labs 11/29 Na 130, glucose 89 Nutritional Hx/Data Height 1.83 m Height (Calculated Centimeters) 182.9 Current Weight (lbs) 86.183 kg Weight (Calculated Kilograms) 86.2 Weight (Calculated Grams) 16260.6 [place] Body Weight 178 Body Mass Index (BMI) 25.7 Weight Status Overweight GI Symptoms GI Symptoms None Last BM 12/01 Difficult in: None Skin Integrity/Comment: right foot plantar diabetic ulcer Estimated Nutritional Goals BEE in Kcals: Using Current wt Calories/Kcals/Kg 25-30 Kcals Calculated 0450-3169 Protein: Using Current wt Protein g/k-1.1 Protein Calculated 86-95 Fluid: ml 2150-2580ml (1ml/klca) Nutritional Problem 1. Problem Problem increased nutrition needs ( protein) Etiology increased metabolic demand for wound healing Signs/Symptoms: diabetic ulcer Malnutrition Alert Protein-Calorie Malnutrition N/A Is there a minimum of two criteria No selected? Query Text:Check all the applicable criteria. A minimum of two criteria are recommended for diagnosis of either severe or non-severe malnutrition. Intervention/Recommendation Comments 1. Continue with current diet as ordered. 2. Monitor PO intake, wt, labs and skin integrity 3. F/U as low risk in 7da ys, 12/08, PO check 12/03 Expected Outcomes/Goals Expected Outcomes/Goals 1. PO intake to meet at least 75% of nutritional needs. 2. Wt stability, skin to remain intact, labs to approach WNL.
[2017-12-14] MEDS: Multivitamin w/ Minerals Tab PO SCH (09:53)
[2017-12-14] MEDS: Vitamin A/Vitamin D 5 gm Packet TP SCH (09:53)
[2017-12-14] MEDS: Enoxaparin 30 mg/0.3 mL 0.3mL Syr SUBQ SCH (09:53)
--- NOTE | 2017-12-14 19:46 | Progress Notes ---
DATE: 12/14/2017 SUBJECTIVE: Staff was spoken to. The patient is interviewed. Mood is noted to be irritable. Affect is constricted. Coping skills are noted to be still poor. The patient has been still testing the limits. However, the patient is currently on multiple medications, but still it is becoming difficult for the patient to be followed. The patient is currently on a Trileptal instead of the Depakote. The patient, however, is going to be also continued on the Seroquel, which is being given to her 75 mg for a day and it is going to be changed to 50 mg twice a day and the patient is going to be followed up with the supportive therapy. The patient is not ready to be discharged because of his impulsive behavior. No placement is available. ASSESSMENT: The patient is still impulsive and psychotic. PLAN: To continue the patient with the above changes with the medications and followup. JOB# [id number]
[2017-12-15] MEDS: INSULIN ASPART SLIDING SCALE 100 UNITS/ML UNIT SUBQ SCH ×4 (06:33→21:42)
--- NOTE | 2017-12-15 06:45 | General Progress Note ---
Subjective - Review of Systems Service Date: 12/15/17 Subjective: Psychosis. Patient is confused, still agitated VS T97.2 P70 BP 124/64 R20 Objective - Results Result Diagrams: 12/08/17 10:10 12/08/17 10:10 Recent Labs: Laboratory Last Values WBC 7.7 Th/cmm (4.8-10.8) 12/08/17 10:10 RBC 4.87 Mil/cmm (3.80-5.80) 12/08/17 10:10 Hgb 13.4 gm/dL (12-16) 12/08/17 10:10 Hct 39.9 % (41.0-60) L 12/08/17 10:10 MCV 81.9 fl (80-99) 12/08/17 10:10 MCH 27.5 pg (27.0-31.0) 12/08/17 10:10 MCHC Differential 33.5 pg (28.0-36.0) 12/08/17 10:10 RDW 16.0 % (11.5-20.0) 12/08/17 10:10 Plt Count 266 Th/cmm (150-400) 12/08/17 10:10 MPV 8.2 fl 12/08/17 10:10 Neutrophils % 67.3 % (40.0-80.0) 12/08/17 10:10 Lymphocytes % 19.4 % (20.0-50.0) L 12/08/17 10:10 Monocytes % 12.1 % (2.0-10.0) H 12/08/17 10:10 Eosinophils % 1.2 % (0.0-5.0) 12/08/17 10:10 Basophils % 0.0 % (0.0-2.0) 12/08/17 10:10 Sodium 133 mEq/L (136-145) L 12/08/17 10:10 Potassium 4.0 mEq/L (3.5-5.1) 12/08/17 10:10 Chloride 100 mEq/L (98-107) 12/08/17 10:10 Carbon Dioxide 27.2 mEq/L (21.0-31.0) 12/08/17 10:10 Anion Gap 9.8 (7.0-16.0) 12/08/17 10:10 BUN 16 mg/dL (7-25) 12/08/17 10:10 Creatinine 0.7 mg/dL (0.7-1.3) 12/08/17 10:10 Est GFR ( Amer) > 60.0 ml/min (>90) 12/08/17 10:10 Est GFR (Non-Af Amer) > 60.0 ml/min 12/08/17 10:10 BUN/Creatinine Ratio 22.9 12/08/17 10:10 Glucose 90 mg/dL (70-105) 12/08/17 10:10 Whole Bld Lactic Acid 0.62 mmol/L (0.60-1.99) 11/29/17 21:22 Calcium 9.3 mg/dL (8.6-10.3) 12/08/17 10:10 Magnesium 2.1 mg/dL (1.9-2.7) 11/29/17 21:22 Total Bilirubin 0.5 mg/dL (0.3-1.0) 11/29/17 21:22 AST 12 U/L (13-39) L 11/29/17 21:22 ALT 15 U/L (7-52) 11/29/17 21:22 Alkaline Phosphatase 77 U/L (34-104) 11/29/17 21:22 Total Protein 6.8 gm/dL (6.0-8.3) 11/29/17 21:22 Albumin 3.9 gm/dL (4.2-5.5) L 11/29/17 21:22 Globulin 2.9 gm/dL 11/29/17 21:22 Albumin/Globulin Ratio 1.3 (1.0-1.8) 11/29/17 21:22 Free T4 1.22 ng/dL (0.82-1.77) 11/29/17 21:22 TSH 3.23 uIU/ml (0.34-5.60) 11/29/17 21:22 - Physical Exam Vitals and I&O: Vital Signs Temp 97.2 F 12/15/17 05:33 Pulse 70 12/15/17 05:33 Resp 20 12/15/17 05:33 BP 124/64 12/15/17 05:33 Pulse Ox 99 12/15/17 05:33 Intake & Output 12/14/17 12/14/17 12/15/17 06:59 18:59 06:59 Intake Total 480 1080 360 Balance 480 1080 360 Weight (lbs) 86.183 kg Intake: Oral 480 1080 360 Other: # Voids 1 3 2 # Bowel Movements 1 1 Weight Source Bedscale Active Medications: Current Medications Acetaminophen (Tylenol) 650 mg PO Q4HR PRN PRN Reason: Mild Pain / Temp above 100 Stop: 01/29/18 03:25 Last Admin: 12/01/17 00:51 Dose: 650 mg Al Hydrox/Mg Hydrox/Simethicone (Maalox) 30 ml PO Q4HR PRN PRN Reason: GI DISTRESS Stop: 01/29/18 03:25 Ascorbic Acid (Vitamin C) 500 mg PO DAILY [facility] Stop: 01/29/18 08:59 Last Admin: 12/14/17 09:53 Dose: 500 mg Enoxaparin Sodium (Lovenox) 30 mg SUBQ DAILY [facility] Stop: 01/29/18 08:59 Last Admin: 12/14/17 09:53 Dose: 30 mg Folic Acid (Folate) 1 mg PO HS [facility] Stop: 01/29/18 20:59 Last Admin: 12/14/17 20:59 Dose: 1 mg Hydralazine HCl (Apresoline) 10 mg PO TID [facility] Stop: 01/29/18 08:59 Last Admin: 12/14/17 21:00 Dose: Not Given Insulin Aspart (Novolog Insulin Sliding Scale) 0 units SUBQ ACHS [facility] PRN Reason: Protocol Stop: 01/29/18 07:29 Last Admin: 12/15/17 06:33 Dose: Not Given Lorazepam (Ativan) 0.5 mg PO Q4HR PRN; Protocol PRN Reason: Agitation Stop: 12/30/17 03:25 Last Admin: 12/15/17 01:01 Dose: 0.5 mg Magnesium Hydroxide (Milk Of Magnesia) 30 ml PO HS PRN PRN Reason: Constipation Nystatin (Nystop) 0 units TP BID [facility] Stop: 02/12/18 10:59 Oxcarbazepine (Trileptal) 150 mg PO TID [facility] PRN Reason: Protocol Stop: 02/11/18 20:59 Last Admin: 12/14/17 20:59 Dose: 150 mg Propranolol HCl (Inderal) 10 mg PO BID [facility] Stop: 01/29/18 08:59 Last Admin: 12/14/17 17:53 Dose: 10 mg Quetiapine Fumarate (Seroquel) 50 mg PO BID [facility] PRN Reason: Protocol Stop: 02/13/18 08:59 Trazodone HCl (Desyrel) 50 mg PO HS [facility] PRN Reason: Protocol Stop: 02/07/18 20:59 Last Admin: 12/14/17 20:59 Dose: 50 mg Vitamin A (Vitamin A & D) 5 gm TP DAILY [facility] Stop: 01/29/18 08:59 Last Admin: 12/14/17 09:53 Dose: 5 gm General: Alert, Oriented x3, No acute distress HEENT: Atraumatic, PERRLA, EOMI Neck: Supple Cardiovascular: Regular rate, Normal S1, Normal S2 Lungs: Clear to auscultation Abdomen: Bowel sounds, Soft Extremities: no Clubbing, no Cyanosis, no Edema Assessment/Plan - Problem List Patient Problems: All Active Problems AGITATION (Acute) - Assessment Assessment: Current Active Problems Problem Status Onset AGITATION Acute Psychosis Right Foot pain secondary to ulcer HTN PVD DM periphereal neuropathy Mild renal insufficiency partial resection of the Right foot - Plan Plan: continue meds per psychiatry continue wound care treatment of right foot Nutritional Asmnt/Malnutr-PDOC - Dietary Evaluation Malnutrition Findings (Please click <Entered> for more info): Nutritional Asmnt/Malnutrition Start: 12/01/17 17: 27 Text: Status: Complete Freq: Document 12/01/17 17:27 LCHENG (Rec: 12/01/17 17:34 [email or web address]) Nutritional Asmnt/Malnutrition Patient General Information Nutritional Screening Moderate Risk Consult Diagnosis psychosis Pertinent Medical Hx/Surgical Hx HTN, psychosis, DM Subjective Information Consult received for diabetic foot ulcer. Pt seen sitting in kim-chair, confused. Spoke with RN, pt eats everything, no problem of eating. Current Diet Order/ Nutrition Support CCHO 60gm Pertinent Medications vit C, folate, novolog, seroquel, vit Ba, vit A&D Pertinent Labs 11/29 Na 130, glucose 89 Nutritional Hx/Data Height 1.83 m Height (Calculated Centimeters) 182.9 Current Weight (lbs) 86.183 kg Weight (Calculated Kilograms) 86.2 Weight (Calculated Grams) 24311.6 [place] Body Weight 178 Body Mass Index (BMI) 25.7 Weight Status Overweight GI Symptoms GI Symptoms None Last BM 12/01 Difficult in: None Skin Integrity/Comment: right foot plantar diabetic ulcer Estimated Nutritional Goals BEE in Kcals: Using Current wt Calories/Kcals/Kg 25-30 Kcals Calculated 4883-1645 Protein: Using Current wt Protein g/k-1.1 Protein Calculated 86-95 Fluid: ml 2150-2580ml (1ml/klca) Nutritional Problem 1. Problem Problem increased nutrition needs ( protein) Etiology increased metabolic demand for wound healing Signs/Symptoms: diabetic ulcer Malnutrition Alert Protein-Calorie Malnutrition N/A Is there a minimum of two criteria No selected? Query Text:Check all the applicable criteria. A minimum of two criteria are recommended for diagnosis of either severe or non-severe malnutrition. Intervention/Recommendation Comments 1. Continue with current diet as ordered. 2. Monitor PO intake, wt, labs and skin integrity 3. F/U as low risk in 7da ys, 12/08, PO check 12/03 Expected Outcomes/Goals Expected Outcomes/Goals 1. PO intake to meet at least 75% of nutritional needs. 2. Wt stability, skin to remain intact, labs to approach WNL.
[2017-12-15] MEDS: NYSTATIN 100000 UNITS/GM POWD TP SCH ×2 (09:00→17:51)
[2017-12-15] MEDS: Enoxaparin 30 mg/0.3 mL 0.3mL Syr SUBQ SCH (09:11)
[2017-12-15] MEDS: Multivitamin w/ Minerals Tab PO SCH (09:11)
[2017-12-15] MEDS: Vitamin A/Vitamin D 5 gm Packet TP SCH (09:11)
--- NOTE | 2017-12-15 15:59 | Progress Notes ---
DATE: 12/15/2017 PSYCHIATRIC PROGRESS NOTE SUBJECTIVE: Staff was spoken to. The patient is interviewed. The patient is interviewed by the [facility]ave[facility] and they have not given an okay for the patient to be transferred out. The patient's coping skills are noted to still poor. The patient continues to be impulsive and is reported to have thrown a pillow at the interviewer and the case is being closely monitored and pending transfer. PLAN: To continue the patient with the supportive therapy and followup. JOB# [id number]
[2017-12-16] MEDS: INSULIN ASPART SLIDING SCALE 100 UNITS/ML UNIT SUBQ SCH ×4 (06:40→20:51)
[2017-12-16] MEDS: NYSTATIN 100000 UNITS/GM POWD TP SCH ×2 (09:33→16:51)
[2017-12-16] MEDS: Enoxaparin 30 mg/0.3 mL 0.3mL Syr SUBQ SCH (09:34)
[2017-12-16] MEDS: Multivitamin w/ Minerals Tab PO SCH (09:34)
[2017-12-16] MEDS: Vitamin A/Vitamin D 5 gm Packet TP SCH (09:34)
[2017-12-16] MEDS ORDERED: Haloperidol Lactate 5 mg/mL 1mL Vial ONE (11:45)
[2017-12-16] MEDS ORDERED: Haloperidol Lactate 5 mg/mL 1mL Vial IM STA (11:46)
--- NOTE | 2017-12-17 02:39 | Progress Notes ---
DATE: 12/16/2017 SUBJECTIVE: Staff was spoken to. The patient is interviewed. Mood is noted to be irritable. Affect is constricted. The patient is very disruptive and has been trying to pull the food tray out of the Roxy chair. The patient's coping skills at this time are noted to be very poor. The patient has no insight into his illness. ASSESSMENT: The patient is still impulsive. PLAN: To give the patient ____ Haldol IM to contain the agitation and follow the patient. The patient is not ready to be discharged because of his acute psychosis and impulsive behavior. JOB# [id number]
[2017-12-17] MEDS: INSULIN ASPART SLIDING SCALE 100 UNITS/ML UNIT SUBQ SCH ×4 (06:32→21:11)
[2017-12-17] MEDS: Enoxaparin 30 mg/0.3 mL 0.3mL Syr SUBQ SCH (09:10)
[2017-12-17] MEDS: Vitamin A/Vitamin D 5 gm Packet TP SCH (09:10)
[2017-12-17] MEDS: Multivitamin w/ Minerals Tab PO SCH (09:11)
[2017-12-17] MEDS: NYSTATIN 100000 UNITS/GM POWD TP SCH ×2 (09:39→16:26)
--- NOTE | 2017-12-18 04:08 | Progress Notes ---
DATE: 12/17/2017 SUBJECTIVE: Staff was spoken to. The patient is interviewed. Mood is noted to be irritable. Affect is constricted. The patient has episodes where he is very lucid and the next minute he becomes very agitated. The patient is very unpredictable. The patient is currently on 150 mg 3 times a day of Trileptal, quetiapine 50 mg twice a day and has been able to tolerate the medications. No side effects to the medications are noted. ASSESSMENT: The patient is still impulsive and awaiting placement. PLAN: To continue the patient with the current medications and follow up. JOB# [id number]
[2017-12-18] MEDS: INSULIN ASPART SLIDING SCALE 100 UNITS/ML UNIT SUBQ SCH ×4 (06:29→21:30)
[2017-12-18] MEDS: NYSTATIN 100000 UNITS/GM POWD TP SCH ×2 (08:12→17:00)
[2017-12-18] MEDS: Enoxaparin 30 mg/0.3 mL 0.3mL Syr SUBQ SCH (08:12)
[2017-12-18] MEDS: Multivitamin w/ Minerals Tab PO SCH (08:13)
[2017-12-18] MEDS: Vitamin A/Vitamin D 5 gm Packet TP SCH (08:13)
--- NOTE | 2017-12-18 17:20 | Progress Notes ---
DATE: 12/18/2017 PSYCHIATRIC PROGRESS NOTE SUBJECTIVE: Staff was spoken to. The patient is interviewed. Mood is noted to be irritable. Affect is constricted. The patient is still having mood swings. The patient is going off with no provocation. The patient is unpredictable. Coping skills are noted to be very poor at this time. ASSESSMENT: The patient is still confused and agitated. PLAN: To continue the patient with supportive therapy and await for placement. JOB# [id number]
--- NOTE | 2017-12-18 23:22 | Consultation ---
DATE OF CONSULTATION: 12/17/2017 ORTHOPEDIC SURGERY CONSULTATION HISTORY OF PRESENT ILLNESS: The patient is a 67-year-old man admitted to [facility] on 11/29/2017 on the Geropsych unit. He was found to have swelling and an ulcer on his right foot. I was called in orthopedic consultation regarding his right foot situation. PAST HISTORY: I am not able to get much meaningful information from the patient. I asked whether he had painful symptoms in the right foot and he stated he did not. I asked whether he had good feeling in his feet and he stated there is "some numbness." The record indicates he is a resident from [facility] and was transferred for admission to [facility] for mental or psychiatric reasons. The chart indicates he has diabetes mellitus, hypertension, psychosis, peripheral vascular disease, diabetic neuropathy and diabetic kidney disease. REVIEW OF SYSTEMS, FAMILY HISTORY AND OTHER INFORMATION: Not available. PHYSICAL EXAMINATION: The patient was examined while sitting in his wheelchair. He was not having any pain. Examination of the right foot showed a dry scab under the great toe metatarsophalangeal joint. The entire joint area looks slightly swollen or enlarged compared to the left foot. Movement of the great toe is nearly normal and did not cause him any pain. The area is not red or draining. Sensation diminished in both lower extremities from the mid calf level distalward. IMAGING STUDIES: I viewed the images in the PACS system. Right foot dated 11/30/2017: There were scattered degenerative changes in the ankle and subtalar joint. The distal end of the fifth metatarsal is "deformed" or has had prior surgery, partial resection. There are changes at the distal interphalangeal joint of the third toe -- probably arthritic. No significant changes noted around the great toe/first metatarsophalangeal joint. I reviewed the photographs in the patient's chart of the plantar surface of the great toe MP joint. The earlier pictures appear like a mal perforans -- diabetic ulcer. This has apparently healed or improved to where now. There is no redness or drainage. DISCUSSION: The patient who has diabetes and circulatory problems probably has or had a mal perforans diabetic ulcer, plantar aspect, great toe MP joint, right foot. This area is healing or attempting to heal. Continue elevation and avoidance of pressure on the area would be sufficient treatment at this time. If the wound worsens and opens, he could have surgical clean out and debridement, but could will be headed for amputation at that point. Thank you for allowing me to see this interesting patient. JOB# [id number]
[2017-12-19] MEDS: INSULIN ASPART SLIDING SCALE 100 UNITS/ML UNIT SUBQ SCH ×3 (06:32→21:32)
[2017-12-19] MEDS: NYSTATIN 100000 UNITS/GM POWD TP SCH ×2 (08:41→17:35)
[2017-12-19] MEDS: Vitamin A/Vitamin D 5 gm Packet TP SCH (08:42)
[2017-12-19] MEDS: Enoxaparin 30 mg/0.3 mL 0.3mL Syr SUBQ SCH (08:42)
[2017-12-19] MEDS: Multivitamin w/ Minerals Tab PO SCH (08:43)
--- NOTE | 2017-12-19 17:16 | Progress Notes ---
DATE: 12/19/2017 SUBJECTIVE: Staff was spoken to. The patient is interviewed. Mood is noted to be less irritable today. The patient has to be given the Ativan to calm him down. No side effects to the medications are noted even though the patient has completed his lunch. He is asking for breakfast. ASSESSMENT: The patient is still confused and demented. PLAN: To continue the patient with the supportive therapy and followup. [facility]# [id number]
[2017-12-20] MEDS: INSULIN ASPART SLIDING SCALE 100 UNITS/ML UNIT SUBQ SCH ×4 (06:39→21:55)
--- NOTE | 2017-12-20 06:49 | General Progress Note ---
Subjective - Review of Systems Service Date: 12/20/17 Subjective: Psychosis. Patient is confused, still agitated VS T97.7 P83 BP 134/72 R20 Objective - Results Result Diagrams: 12/08/17 10:10 12/08/17 10:10 Recent Labs: Laboratory Last Values WBC 7.7 Th/cmm (4.8-10.8) 12/08/17 10:10 RBC 4.87 Mil/cmm (3.80-5.80) 12/08/17 10:10 Hgb 13.4 gm/dL (12-16) 12/08/17 10:10 Hct 39.9 % (41.0-60) L 12/08/17 10:10 MCV 81.9 fl (80-99) 12/08/17 10:10 MCH 27.5 pg (27.0-31.0) 12/08/17 10:10 MCHC Differential 33.5 pg (28.0-36.0) 12/08/17 10:10 RDW 16.0 % (11.5-20.0) 12/08/17 10:10 Plt Count 266 Th/cmm (150-400) 12/08/17 10:10 MPV 8.2 fl 12/08/17 10:10 Neutrophils % 67.3 % (40.0-80.0) 12/08/17 10:10 Lymphocytes % 19.4 % (20.0-50.0) L 12/08/17 10:10 Monocytes % 12.1 % (2.0-10.0) H 12/08/17 10:10 Eosinophils % 1.2 % (0.0-5.0) 12/08/17 10:10 Basophils % 0.0 % (0.0-2.0) 12/08/17 10:10 Sodium 133 mEq/L (136-145) L 12/08/17 10:10 Potassium 4.0 mEq/L (3.5-5.1) 12/08/17 10:10 Chloride 100 mEq/L (98-107) 12/08/17 10:10 Carbon Dioxide 27.2 mEq/L (21.0-31.0) 12/08/17 10:10 Anion Gap 9.8 (7.0-16.0) 12/08/17 10:10 BUN 16 mg/dL (7-25) 12/08/17 10:10 Creatinine 0.7 mg/dL (0.7-1.3) 12/08/17 10:10 Est GFR ( Amer) > 60.0 ml/min (>90) 12/08/17 10:10 Est GFR (Non-Af Amer) > 60.0 ml/min 12/08/17 10:10 BUN/Creatinine Ratio 22.9 12/08/17 10:10 Glucose 90 mg/dL (70-105) 12/08/17 10:10 Whole Bld Lactic Acid 0.62 mmol/L (0.60-1.99) 11/29/17 21:22 Calcium 9.3 mg/dL (8.6-10.3) 12/08/17 10:10 Magnesium 2.1 mg/dL (1.9-2.7) 11/29/17 21:22 Total Bilirubin 0.5 mg/dL (0.3-1.0) 11/29/17 21:22 AST 12 U/L (13-39) L 11/29/17 21:22 ALT 15 U/L (7-52) 11/29/17 21:22 Alkaline Phosphatase 77 U/L (34-104) 11/29/17 21:22 Total Protein 6.8 gm/dL (6.0-8.3) 11/29/17 21:22 Albumin 3.9 gm/dL (4.2-5.5) L 11/29/17 21:22 Globulin 2.9 gm/dL 11/29/17 21:22 Albumin/Globulin Ratio 1.3 (1.0-1.8) 11/29/17 21:22 Free T4 1.22 ng/dL (0.82-1.77) 11/29/17 21:22 TSH 3.23 uIU/ml (0.34-5.60) 11/29/17 21:22 - Physical Exam Vitals and I&O: Vital Signs Temp 97.7 F 12/20/17 05:09 Pulse 83 12/20/17 05:09 Resp 20 12/20/17 05:09 BP 134/72 12/20/17 05:09 Pulse Ox 96 12/20/17 05:09 Intake & Output 12/19/17 12/19/1718 06:59 18:59 06:59 Intake Total 480 450 480 Output Total 2 Balance 478 450 480 Intake: Oral 480 450 480 Output: Urine 2 Other: # Voids 2 3 2 Stool Characteristics Soft Formed Formed Formed Active Medications: Current Medications Acetaminophen (Tylenol) 650 mg PO Q4HR PRN PRN Reason: Mild Pain / Temp above 100 Stop: 01/29/18 03:25 Last Admin: 12/19/17 08:44 Dose: 650 mg Al Hydrox/Mg Hydrox/Simethicone (Maalox) 30 ml PO Q4HR PRN PRN Reason: GI DISTRESS Stop: 01/29/18 03:25 Ascorbic Acid (Vitamin C) 500 mg PO DAILY [facility] Stop: 01/29/18 08:59 Last Admin: 12/19/17 08:43 Dose: 500 mg Enoxaparin Sodium (Lovenox) 30 mg SUBQ DAILY [facility] Stop: 01/29/18 08:59 Last Admin: 12/19/17 08:42 Dose: 30 mg Folic Acid (Folate) 1 mg PO HS [facility] Stop: 01/29/18 20:59 Last Admin: 12/19/17 21:29 Dose: 1 mg Hydralazine HCl (Apresoline) 10 mg PO TID [facility] Stop: 01/29/18 08:59 Last Admin: 12/19/17 21:38 Dose: 10 mg Insulin Aspart (Novolog Insulin Sliding Scale) 0 units SUBQ ACHS [facility] PRN Reason: Protocol Stop: 01/29/18 07:29 Last Admin: 12/20/17 06:39 Dose: Not Given Lorazepam (Ativan) 0.5 mg PO Q4HR PRN; Protocol PRN Reason: Agitation Stop: 12/30/17 03:25 Last Admin: 12/20/17 03:09 Dose: 0.5 mg Magnesium Hydroxide (Milk Of Magnesia) 30 ml PO HS PRN PRN Reason: Constipation Nystatin (Nystop) 0 units TP BID [facility] Stop: 02/12/18 10:59 Last Admin: 12/19/17 08:41 Dose: 100,000 units Oxcarbazepine (Trileptal) 150 mg PO TID [facility] PRN Reason: Protocol Stop: 02/11/18 20:59 Last Admin: 12/19/17 21:29 Dose: 150 mg Propranolol HCl (Inderal) 10 mg PO BID [facility] Stop: 01/29/18 08:59 Last Admin: 12/19/17 16:32 Dose: 10 mg Quetiapine Fumarate (Seroquel) 50 mg PO BID [facility] PRN Reason: Protocol Stop: 02/13/18 08:59 Last Admin: 12/19/17 16:33 Dose: 50 mg Trazodone HCl (Desyrel) 50 mg PO HS [facility] PRN Reason: Protocol Stop: 02/07/18 20:59 Last Admin: 12/19/17 21:29 Dose: 50 mg Vitamin A (Vitamin A & D) 5 gm TP DAILY [facility] Stop: 01/29/18 08:59 Last Admin: 12/19/17 08:42 Dose: 5 gm Zolpidem Tartrate (Ambien) 5 mg PO HS PRN PRN Reason: Insomnia Stop: 02/14/18 00:46 Last Admin: 12/19/17 23:52 Dose: 5 mg General: Alert, Oriented x3, No acute distress HEENT: Atraumatic, PERRLA, EOMI Neck: Supple Cardiovascular: Regular rate, Normal S1, Normal S2 Lungs: Clear to auscultation Abdomen: Bowel sounds, Soft Extremities: no Clubbing, no Cyanosis, no Edema Assessment/Plan - Problem List Patient Problems: All Active Problems AGITATION (Acute) - Assessment Assessment: Current Active Problems Problem Status Onset AGITATION Acute Psychosis Right Foot pain secondary to ulcer HTN PVD DM periphereal neuropathy Mild renal insufficiency partial resection of the Right foot - Plan Plan: continue meds per psychiatry continue wound care treatment of right foot Nutritional Asmnt/Malnutr-PDOC - Dietary Evaluation Malnutrition Findings (Please click <Entered> for more info): Nutritional Asmnt/Malnutrition Start: 12/01/17 17: 27 Text: Status: Complete Freq: Document 12/01/17 17:27 [email or web address] (Rec: 12/01/17 17:34 [email or web address]) Nutritional Asmnt/Malnutrition Patient General Information Nutritional Screening Moderate Risk Consult Diagnosis psychosis Pertinent Medical Hx/Surgical Hx HTN, psychosis, DM Subjective Information Consult received for diabetic foot ulcer. Pt seen sitting in kim-chair, confused. Spoke with RN, pt eats everything, no problem of eating. Current Diet Order/ Nutrition Support CCHO 60gm Pertinent Medications vit C, folate, novolog, seroquel, vit Ba, vit A&D Pertinent Labs 11/29 Na 130, glucose 89 Nutritional Hx/Data Height 1.83 m Height (Calculated Centimeters) 182.9 Current Weight (lbs) 86.183 kg Weight (Calculated Kilograms) 86.2 Weight (Calculated Grams) 89156.6 Monitor Body Weight 178 Body Mass Index (BMI) 25.7 Weight Status Overweight GI Symptoms GI Symptoms None Last BM 12/01 Difficult in: None Skin Integrity/Comment: right foot plantar diabetic ulcer Estimated Nutritional Goals BEE in Kcals: Using Current wt Calories/Kcals/Kg 25-30 Kcals Calculated 3979-9424 Protein: Using Current wt Protein g/k-1.1 Protein Calculated 86-95 Fluid: ml 2150-2580ml (1ml/klca) Nutritional Problem 1. Problem Problem increased nutrition needs ( protein) Etiology increased metabolic demand for wound healing Signs/Symptoms: diabetic ulcer Malnutrition Alert Protein-Calorie Malnutrition N/A Is there a minimum of two criteria No selected? Query Text:Check all the applicable criteria. A minimum of two criteria are recommended for diagnosis of either severe or non-severe malnutrition. Intervention/Recommendation Comments 1. Continue with current diet as ordered. 2. Monitor PO intake, wt, labs and skin integrity 3. F/U as low risk in 7da ys, 12/08, PO check 12/03 Expected Outcomes/Goals Expected Outcomes/Goals 1. PO intake to meet at least 75% of nutritional needs. 2. Wt stability, skin to remain intact, labs to approach WNL.
[2017-12-20] MEDS: NYSTATIN 100000 UNITS/GM POWD TP SCH ×2 (08:41→16:41)
[2017-12-20] MEDS: Enoxaparin 30 mg/0.3 mL 0.3mL Syr SUBQ SCH (08:41)
[2017-12-20] MEDS: Multivitamin w/ Minerals Tab PO SCH (08:42)
[2017-12-20] MEDS: Vitamin A/Vitamin D 5 gm Packet TP SCH (08:42)
--- NOTE | 2017-12-21 02:06 | Progress Notes ---
DATE: 12/20/2017 SUBJECTIVE: Staff was spoken to. The patient is interviewed. Mood is noted to be irritable. Affect is constricted. The patient has to be given a low dose of the Ativan to calm him down. The patient tends to get easily agitated and trying to pull the tray out of the GD chair. The patient has no insight into his illness. ASSESSMENT: The patient is still psychotic and impulsive and the patient has no place to return to. PLAN: To continue the patient with the supportive therapy and followup. JOB# [id number]
--- NOTE | 2017-12-21 06:37 | General Progress Note ---
Subjective - Review of Systems Service Date: 12/21/17 Subjective: Psychosis. Patient is confused, still agitated VS T97.7 P88 BP 127/84 R219 Objective - Results Result Diagrams: 12/08/17 10:10 12/08/17 10:10 Recent Labs: Laboratory Last Values WBC 7.7 Th/cmm (4.8-10.8) 12/08/17 10:10 RBC 4.87 Mil/cmm (3.80-5.80) 12/08/17 10:10 Hgb 13.4 gm/dL (12-16) 12/08/17 10:10 Hct 39.9 % (41.0-60) L 12/08/17 10:10 MCV 81.9 fl (80-99) 12/08/17 10:10 MCH 27.5 pg (27.0-31.0) 12/08/17 10:10 MCHC Differential 33.5 pg (28.0-36.0) 12/08/17 10:10 RDW 16.0 % (11.5-20.0) 12/08/17 10:10 Plt Count 266 Th/cmm (150-400) 12/08/17 10:10 MPV 8.2 fl 12/08/17 10:10 Neutrophils % 67.3 % (40.0-80.0) 12/08/17 10:10 Lymphocytes % 19.4 % (20.0-50.0) L 12/08/17 10:10 Monocytes % 12.1 % (2.0-10.0) H 12/08/17 10:10 Eosinophils % 1.2 % (0.0-5.0) 12/08/17 10:10 Basophils % 0.0 % (0.0-2.0) 12/08/17 10:10 Sodium 133 mEq/L (136-145) L 12/08/17 10:10 Potassium 4.0 mEq/L (3.5-5.1) 12/08/17 10:10 Chloride 100 mEq/L (98-107) 12/08/17 10:10 Carbon Dioxide 27.2 mEq/L (21.0-31.0) 12/08/17 10:10 Anion Gap 9.8 (7.0-16.0) 12/08/17 10:10 BUN 16 mg/dL (7-25) 12/08/17 10:10 Creatinine 0.7 mg/dL (0.7-1.3) 12/08/17 10:10 Est GFR ( Amer) > 60.0 ml/min (>90) 12/08/17 10:10 Est GFR (Non-Af Amer) > 60.0 ml/min 12/08/17 10:10 BUN/Creatinine Ratio 22.9 12/08/17 10:10 Glucose 90 mg/dL (70-105) 12/08/17 10:10 Whole Bld Lactic Acid 0.62 mmol/L (0.60-1.99) 11/29/17 21:22 Calcium 9.3 mg/dL (8.6-10.3) 12/08/17 10:10 Magnesium 2.1 mg/dL (1.9-2.7) 11/29/17 21:22 Total Bilirubin 0.5 mg/dL (0.3-1.0) 11/29/17 21:22 AST 12 U/L (13-39) L 11/29/17 21:22 ALT 15 U/L (7-52) 11/29/17 21:22 Alkaline Phosphatase 77 U/L (34-104) 11/29/17 21:22 Total Protein 6.8 gm/dL (6.0-8.3) 11/29/17 21:22 Albumin 3.9 gm/dL (4.2-5.5) L 11/29/17 21:22 Globulin 2.9 gm/dL 11/29/17 21:22 Albumin/Globulin Ratio 1.3 (1.0-1.8) 11/29/17 21:22 Free T4 1.22 ng/dL (0.82-1.77) 11/29/17 21:22 TSH 3.23 uIU/ml (0.34-5.60) 11/29/17 21:22 - Physical Exam Vitals and I&O: Vital Signs Temp 98.3 F 12/20/17 20:00 Pulse 88 12/21/17 02:23 Resp 19 12/21/17 02:23 BP 127/84 12/21/17 02:23 Pulse Ox 98 12/20/17 20:00 Intake & Output 12/20/17 12/20/1718 06:59 18:59 06:59 Intake Total 480 1500 Balance 480 1500 Intake: Oral 480 1500 Other: # Voids 2 3 Stool Characteristics Formed Formed Active Medications: Current Medications Acetaminophen (Tylenol) 650 mg PO Q4HR PRN PRN Reason: Mild Pain / Temp above 100 Stop: 01/29/18 03:25 Last Admin: 12/21/17 02:24 Dose: 650 mg Al Hydrox/Mg Hydrox/Simethicone (Maalox) 30 ml PO Q4HR PRN PRN Reason: GI DISTRESS Stop: 01/29/18 03:25 Ascorbic Acid (Vitamin C) 500 mg PO DAILY [facility] Stop: 01/29/18 08:59 Last Admin: 12/20/17 08:41 Dose: 500 mg Enoxaparin Sodium (Lovenox) 30 mg SUBQ DAILY [facility] Stop: 01/29/18 08:59 Last Admin: 12/20/17 08:41 Dose: 30 mg Folic Acid (Folate) 1 mg PO HS [facility] Stop: 01/29/18 20:59 Last Admin: 12/20/17 21:57 Dose: 1 mg Hydralazine HCl (Apresoline) 10 mg PO TID [facility] Stop: 01/29/18 08:59 Last Admin: 12/20/17 21:56 Dose: Not Given Insulin Aspart (Novolog Insulin Sliding Scale) 0 units SUBQ ACHS [facility] PRN Reason: Protocol Stop: 01/29/18 07:29 Last Admin: 12/20/17 21:55 Dose: Not Given Lorazepam (Ativan) 0.5 mg PO Q4HR PRN; Protocol PRN Reason: Agitation Stop: 12/30/17 03:25 Last Admin: 12/21/17 02:25 Dose: 0.5 mg Magnesium Hydroxide (Milk Of Magnesia) 30 ml PO HS PRN PRN Reason: Constipation Nystatin (Nystop) 0 units TP BID [facility] Stop: 02/12/18 10:59 Last Admin: 12/20/17 16:41 Dose: 1 units Oxcarbazepine (Trileptal) 150 mg PO TID [facility] PRN Reason: Protocol Stop: 02/11/18 20:59 Last Admin: 12/20/17 21:57 Dose: 150 mg Propranolol HCl (Inderal) 10 mg PO BID [facility] Stop: 01/29/18 08:59 Last Admin: 12/20/17 16:42 Dose: Not Given Quetiapine Fumarate (Seroquel) 50 mg PO BID [facility] PRN Reason: Protocol Stop: 02/13/18 08:59 Last Admin: 12/20/17 16:42 Dose: 50 mg Trazodone HCl (Desyrel) 50 mg PO HS [facility] PRN Reason: Protocol Stop: 02/07/18 20:59 Last Admin: 12/20/17 21:57 Dose: 50 mg Vitamin A (Vitamin A & D) 5 gm TP DAILY [facility] Stop: 01/29/18 08:59 Last Admin: 12/20/17 08:42 Dose: 5 gm Zolpidem Tartrate (Ambien) 5 mg PO HS PRN PRN Reason: Insomnia Stop: 02/14/18 00:46 Last Admin: 12/19/17 23:52 Dose: 5 mg General: Alert, Oriented x3, No acute distress HEENT: Atraumatic, PERRLA, EOMI Neck: Supple Cardiovascular: Regular rate, Normal S1, Normal S2 Lungs: Clear to auscultation Abdomen: Bowel sounds, Soft Extremities: no Clubbing, no Cyanosis, no Edema Assessment/Plan - Problem List Patient Problems: All Active Problems AGITATION (Acute) - Assessment Assessment: Current Active Problems Problem Status Onset AGITATION Acute Psychosis Right Foot pain secondary to ulcer HTN PVD DM periphereal neuropathy Mild renal insufficiency partial resection of the Right foot - Plan Plan: continue meds per psychiatry continue wound care treatment of right foot patient seen by ortho, see dictated report Nutritional Asmnt/Malnutr-PDOC - Dietary Evaluation Malnutrition Findings (Please click <Entered> for more info): Nutritional Asmnt/Malnutrition Start: 12/01/17 17: 27 Text: Status: Complete Freq: Document 12/01/17 17:27 LCHENG (Rec: 12/01/17 17:34 [email or web address] [email or web address]) Nutritional Asmnt/Malnutrition Patient General Information Nutritional Screening Moderate Risk Consult Diagnosis psychosis Pertinent Medical Hx/Surgical Hx HTN, psychosis, DM Subjective Information Consult received for diabetic foot ulcer. Pt seen sitting in kim-chair, confused. Spoke with RN, pt eats everything, no problem of eating. Current Diet Order/ Nutrition Support CCHO 60gm Pertinent Medications vit C, folate, novolog, seroquel, vit Ba, vit A&D Pertinent Labs 3/19 Na 130, glucose 89 Nutritional Hx/Data Height 1.83 m Height (Calculated Centimeters) 182.9 Current Weight (lbs) 86.183 kg Weight (Calculated Kilograms) 86.2 Weight (Calculated Grams) 38989.6 [place] Body Weight 178 Body Mass Index (BMI) 25.7 Weight Status Overweight GI Symptoms GI Symptoms None Last BM 12/01 Difficult in: None Skin Integrity/Comment: right foot plantar diabetic ulcer Estimated Nutritional Goals BEE in Kcals: Using Current wt Calories/Kcals/Kg 25-30 Kcals Calculated 2221-4907 Protein: Using Current wt Protein g/k-1.1 Protein Calculated 86-95 Fluid: ml 2150-2580ml (1ml/klca) Nutritional Problem 1. Problem Problem increased nutrition needs ( protein) Etiology increased metabolic demand for wound healing Signs/Symptoms: diabetic ulcer Malnutrition Alert Protein-Calorie Malnutrition N/A Is there a minimum of two criteria No selected? Query Text:Check all the applicable criteria. A minimum of two criteria are recommended for diagnosis of either severe or non-severe malnutrition. Intervention/Recommendation Comments 1. Continue with current diet as ordered. 2. Monitor PO intake, wt, labs and skin integrity 3. F/U as low risk in 7da ys, 12/08, PO check 12/03 Expected Outcomes/Goals Expected Outcomes/Goals 1. PO intake to meet at least 75% of nutritional needs. 2. Wt stability, skin to remain intact, labs to approach WNL.
[2017-12-21] MEDS: INSULIN ASPART SLIDING SCALE 100 UNITS/ML UNIT SUBQ SCH ×2 (06:47→08:52)
[2017-12-21] MEDS: Enoxaparin 30 mg/0.3 mL 0.3mL Syr SUBQ SCH (08:50)
[2017-12-21] MEDS: Multivitamin w/ Minerals Tab PO SCH (08:52)
--- NOTE | 2017-12-21 21:30 | Progress Notes ---
DATE: 12/21/2017 PSYCHIATRIC PROGRESS NOTE SUBJECTIVE: Staff was spoken to. The patient is interviewed. Mood is noted to be less irritable. Affect is appropriate. The patient has to be given a low dose of benzodiazepine to calm him down. The patient's impulsivity is a major concern. Insight and judgment are noted to be still impaired. He is very unpredictable and needs 24-hour care. The patient's family has been in here. They wanted to take the patient to ____ on an outpatient basis. ASSESSMENT: The patient is stabilizing. PLAN: To discharge the patient to the family for followup on an outpatient basis. JOB# [id number]
== END 2017-12-21 10:01 | disposition home or self-care (01) | DRG 885 ==
LOC: ER 13:02 → GERO2 23:50
DX: F29 Unspecified psychosis not due to a substance or known physiological condition (principal); F03.91 Unspecified dementia, unspecified severity, with behavioral disturbance; I10 Essential (primary) hypertension; N28.9 Disorder of kidney and ureter, unspecified; E11.621 Type 2 diabetes mellitus with foot ulcer; E11.42 Type 2 diabetes mellitus with diabetic polyneuropathy; L97.519 Non-pressure chronic ulcer of other part of right foot with unspecified severity; E11.51 Type 2 diabetes mellitus with diabetic peripheral angiopathy without gangrene; I25.10 Atherosclerotic heart disease of native coronary artery without angina pectoris; Z88.0 Allergy status to penicillin; Z79.4 Long term (current) use of insulin; Z87.81 Personal history of (healed) traumatic fracture
CPT/HCPCS: 36415-UA; 71045-TC; 73630-TC-RT; 80048-TC; 80053-TC; 83605; 83735-TC; 84439-90; 84443-TC; 85025-TC; 93005; J1200; J1630; J1650; J1815; J2060; J2543; J7030; X5958; Z7610